=== PATIENT | male | born 1970 | race Caucasian/White ===

== ENCOUNTER 2021-06-02 09:12 | Inpatient (IN) | payer BC, SELFPAY ==
--- NOTE | ~2021-06-02 | US_ITS ---
US abdomen limited INDICATION: Right upper quadrant pain PROCEDURE: Realtime right upper abdominal ultrasound. COMPARISON: No prior studies for comparison. FINDINGS: The pancreas is normal without focal mass or pancreatic ductal dilation. Liver echotexture is normal without focal mass or intrahepatic biliary dilatation. There is normal directional flow i n the portal vein. There are multiple gallstones. Common bile duct measures 5 mm. No sonographic Urena's sign. IMPRESSION: 1: Cholelithiasis. Reviewed, dictated and finalized at location B. CONDITIONER IMPRESSION: 1: Cholelithiasis.
--- NOTE | ~2021-06-02 | CT_ITS ---
EXAMINATION: CT abdomen pelvis w con DATE: 06/06/2021 09:14 INDICATION: Persistent acute biliary pancreatitis TECHNIQUE: Computed tomography (CT) of the abdomen and pelvis was performed with 100 mL Omnipaque-350 intravenous contrast. Automated exposure control and iterative reconstruction technique were employe d. The dose-length product was 799.31 mGy-cm. COMPARISON: CT dated 06/04/2021 FINDINGS: Small left pleural effusion. Lesion enhancing consolidation at the medial aspect of the lingula and a t the lateral basilar aspect of the left lower lobe most consistent with compressive atelectasis. Add itional mild dependent atelectasis in the right lower lobe and mild discoid atelectasis in the right middle lobe. Heart size is normal. No pericardial effusion. Liver, gallbladder, spleen, bilateral adr enal glands and kidneys are normal. Persistent peripancreatic edema along with a few small nonloculat ed peripancreatic fluid collections within the surrounding retroperitoneal and mesenteric fat. Homoge neous pancreatic parenchymal enhancement with no pancreatic necrosis. Small amount of ascites scatter ed throughout the abdomen and pelvis. Mild scattered diverticulosis with descending and sigmoid colon predominance and without adjacent inflammatory change to suggest diverticular colitis. Small bowel a nd appendix are normal. Bladder is normal. No abscess or free intraperineal gas. No pathologically en larged abdominal or pelvic lymphadenopathy. Mild scattered degenerative skeletal changes in the spine and pelvis. IMPRESSION: 1. Persistent acute interstitial pancreatitis with few small acute peripancreatic fluid collections b ut no necrosis or abscess. 2. Interval increase in a still small amount of likely reactive ascites. 3. Mild diverticulosis. 4. New small left pleural effusion with atelectasis at the lung bases, left greater than right. Reviewed, dictated and finalized at location A. GN MANAGER IMPRESSION: 1. Persistent acute interstitial pancreatitis with few small acute peripancreat ic fluid collections but no necrosis or abscess. 2. Interval increase in a still small amount of likely reactive ascites. 3. Mild diverticulosis. 4. New small left pleural effusion with atelectasis at the lung bases, left gre ater than right.
--- NOTE | ~2021-06-02 | CT_ITS ---
EXAMINATION: CT abdomen pelvis w con DATE: 06/02/2021 11:49 INDICATION: Upper abdominal pain, vomiting and transaminitis TECHNIQUE: Computed tomography (CT) of the abdomen and pelvis was performed with 100 mL Omnipaque-350 intravenous contrast. Automated exposure control and iterative reconstruction technique were employe d. The dose-length product was 1145.11 mGy-cm. COMPARISON: Ultrasound dated 06/02/2021 FINDINGS: Scattered linear discoid atelectasis/scarring at the bilateral lower lung zones. Heart size is normal . No pericardial or pleural effusion. Liver is normal. No intra-axial hepatic biliary ductal dilation . Multiple subtle gallstones are seen in the dependent aspect of the gallbladder. Trace amount of per icholecystic fluid between the liver and gallbladder. No other carpal or wall thickening or perichole cystic inflammatory change to suggest acute cholecystitis. Pancreas and spleen are normal. Slight nod ular thickening of the limbs of the bilateral adrenal glands most likely representing multiple small adenomas versus adrenal hyperplasia. Bilateral kidneys are normal. There is opacification of the bila teral renal collecting systems and ureters which are of normal caliber with bilateral ureteral jets w ithin the normal bladder. There is mild colonic diverticulosis with a sigmoid predominance. There is no adjacent inflammatory change to suggest diverticulitis. Small bowel and appendix are normal. No f ree intraperitoneal gas or fluid. No pathologically enlarged abdominal or pelvic lymphadenopathy. IMPRESSION: 1. Cholelithiasis and trace amount of nonspecific fluid situated between the liver and gallbladder. T here is however dilation of the gallbladder or intra or extra hepatic bile ducts. No abnormal wall th ickening, pericholecystic inflammatory stranding or reported Urena's on a prior ultrasound to more s pecifically suggest acute cholecystitis. Reviewed, dictated and finalized at location A. E COMMERCE MARKETING ANALYST IMPRESSION: 1. Cholelithiasis and trace amount of nonspecific fluid situated between the li marysol and gallbladder. There is however dilation of the gallbladder or intra or e xtra hepatic bile ducts. No abnormal wall thickening, pericholecystic inflammat ory stranding or reported Urena's on a prior ultrasound to more specifically s uggest acute cholecystitis.
--- NOTE | ~2021-06-02 | XR_ITS ---
XR chest 2V 06/02/2021 10:56 Indication: Chest pain Procedure: 2 view chest Comparison: No prior studies for comparison. Findings: Heart size normal. No focal air space disease, pulmonary edema, pleural effusion or suspect ed pneumothorax. Left basilar atelectasis. No pleural effusion or pneumothorax. No acute osseous abno rmality. Impression: 1: Left basilar atelectasis. Reviewed, dictated and finalized at location B. LER HELPER Impression: 1: Left basilar atelectasis.
--- NOTE | ~2021-06-02 | CT_ITS ---
EXAMINATION: CT abdomen pelvis wo con DATE: 06/09/2021 09:16 INDICATION: Pancreatitis, hypogastric abdominal mass noted during laparoscopic cholecystectomy TECHNIQUE: Computed tomography (CT) of the abdomen and pelvis was performed without intravenous contr ast. The dose-length product (DLP) was 895.29 mGy-cm. Automated exposure control and iterative recons truction technique were employed. COMPARISON: 06/06/2021, 06/04/2021, 06/02/2021 FINDINGS: The examination is limited by the absence of intravenous contrast. There are small pleural effusions. There are increasing airspace opacities in the lingula and left lower lobe. The heart size is normal. Within the limitations of noncontrast examination, the liver, spleen, and adrenal glands are normal. There are changes of interval cholecystectomy. There is an approximately 8.2 x 5.1 cm flu id collection along the greater curvature of the stomach which is stable to slightly decreased in siz e since the comparison examination. There is a marked amount of peripancreatic fluid and edema anteri or to the pancreas. There is questionable hypoattenuation in the body of the pancreas with no associa alessandro internal gas. A small amount of inflammation and edema extends into the bilateral anterior parare nal spaces. The kidneys are unremarkable. No pathologically enlarged abdominal or pelvic lymph nodes are identified. There are no dilated loops of bowel. Tiny foci of gas in the right anterior abdominal wall and anterior abdominal wall musculature to the right of midline are consistent with changes fro m cholecystectomy. IMPRESSION: 1. Combination of peripancreatic and perigastric fluid and inflammatory change related to pancreatiti s likely accounting for the intraoperative abnormality described. 2. Possible hypoattenuation in the body of the pancreas with surrounding fluid, which would be consis tent with necrotizing pancreatitis with sterile acute necrotic collection. Sensitivity limited by the absence of intravenous contrast. 3. Changes of interval cholecystectomy. Reviewed, dictated and finalized at location A. INATION MACHINE TENDER IMPRESSION: 1. Combination of peripancreatic and perigastric fluid and inflammatory change related to pancreatitis likely accounting for the intraoperative abnormality de scribed. 2. Possible hypoattenuation in the body of the pancreas with surrounding fluid, which would be consistent with necrotizing pancreatitis with sterile acute nec rotic collection. Sensitivity limited by the absence of intravenous contrast. 3. Changes of interval cholecystectomy.
--- NOTE | ~2021-06-02 | CT_ITS ---
EXAMINATION: CT abdomen wo con EXAM DATE: 06/04/2021 11:01 INDICATION: Abdominal pain. TECHNIQUE: Spiral CT of the abdomen was performed without contrast. Axial, coronal and sagittal malinda ges of the abdomen and pelvis were reviewed. The dose-length product (DLP) for this examination was 421.78 mGy-cm. The exposure was tailored according to patient size (auto mA exposure control), and i terative reconstruction (ASIR) was used as additional dose reduction technique. Comparison is made to prior examination from 06/02/2021. FINDINGS: There is interval development of liver, spleen, adrenal glands are unremarkable. Moderate a mount of peripancreatic fat stranding, appearance consistent with acute uncomplicated interstitial pa ncreatitis. There is edema extending into the mesentery and omentum. Probably poorly calcified bear lithiasis. Gallbladder otherwise unremarkable. Trace perisplenic fluid. There is no nephrolithiasis or hydronephrosis. There is no retroperitoneal lymphadenopathy. There are no findings to suggest appendicitis. There is mild scattered colonic diverticulosis. There is no adjacent inflammatory change to suggest diverticulitis. Possible gastric wall emphysema at th e cardia, could be from yesterday's ERCP. There is expected amount of colonic stool. No free intra peritoneal gas. The heart is normal in size. There are no pericardial or pleural effusions. Devel opment of linear subsegmental atelectasis bilaterally. There are no osteoblastic or osteolytic lesio ns identified. IMPRESSION: 1. Development of moderate peripancreatic, mesenteric inflammation, acute pancreatitis. 2. Possible small amount of gastric cardial wall emphysema, could be from recent ERCP. No free intra peritoneal gas. 3. Mild scattered colonic diverticulosis. Reviewed, dictated and finalized at location B. ER REGULATOR IMPRESSION: 1. Development of moderate peripancreatic, mesenteric inflammation, acute panc reatitis. 2. Possible small amount of gastric cardial wall emphysema, could be from rece nt ERCP. No free intraperitoneal gas. 3. Mild scattered colonic diverticulosis.
--- NOTE | ~2021-06-02 | CT_ITS ---
EXAMINATION: CT abdomen pelvis w con EXAM DATE: 06/14/2021 12:17 INDICATION: Pancreatitis, pseudocyst? further evaluation . TECHNIQUE: Spiral CT of the abdomen and pelvis was performed following intravenous injection of 100 m L Omnipaque 350. Axial, coronal and sagittal images of the abdomen and pelvis were reviewed. The do se-length product (DLP) for this examination was 552.36 mGy-cm. The exposure was tailored according to patient size (auto mA exposure control), and iterative reconstruction (ASIR) was used as additiona l dose reduction technique. Comparison is made to prior examination from 06/09/2021. FINDINGS: Previous exam had small to moderate left pleural effusion and multi segmental left lower lo be atelectasis. These findings have significantly improved with some residual subsegmental left lower lobe atelectasis and only trace pleural effusion. Borderline cardiomegaly is unchanged. Bilateral adrenal gland nodularity probably small adenomas or hyperplasia. Again there is extensive p eripancreatic, mesenteric fat stranding, with development of fluid collection along the inferior sabra in of the stomach measuring about 2.4 x 4.4 x 10 cm, consistent with pseudocyst. Margins of the pancr eas are ill-defined, possible peripheral necrosis without focal regions of central pancreatic necrosi s. There are cholecystectomy clips and some fluid in the gallbladder fossa could be postoperative or kathy ctive. Portal and splenic veins are patent. Kidneys enhance symmetrically. There is no hydronephro sis. The prostate is unremarkable. The bladder is unremarkable. There is no retroperitoneal or pe lvic lymphadenopathy. There are no findings to suggest appendicitis. The stomach and small bowel are unremarkable. Normal ization of quantity of colonic stool. There is mild scattered colonic diverticulosis. There is no ad jacent inflammatory change to suggest diverticulitis. No free intraperitoneal gas. There are no osteoblastic or osteolytic lesions identified. IMPRESSION: 1. Severe acute pancreatitis with development of pseudocysts along margin of stomach. 2. There is been improvement in left pleural effusion, basilar atelectasis. 3. Colonic diverticulosis. Reviewed, dictated and finalized at location B. SHOE WORKER IMPRESSION: 1. Severe acute pancreatitis with development of pseudocysts along margin of s tomach. 2. There is been improvement in left pleural effusion, basilar atelectasis. 3. Colonic diverticulosis.
--- NOTE | ~2021-06-02 | XR_ITS ---
EXAMINATION: XR ERCP DATE: 06/03/2021 11:20 INDICATION: Abnormal liver function tests. TECHNIQUE: 2 spot fluoroscopic images of the right upper quadrant were obtained during endoscopic ret rograde cholangiopancreatography (ERCP). Fluoroscopy exposure time was 104 seconds. COMPARISON: CT abdomen and pelvis 06/02/2021 FINDINGS: There is contrast opacification of the common duct, which is normal in caliber. IMPRESSION: 1. Normal caliber common duct. Please refer to the ERCP procedure note for additional details. Reviewed, dictated and finalized at location A. LE ATTACHING MACHINE OPERATOR IMPRESSION: 1. Normal caliber common duct. Please refer to the ERCP procedure note for indra tional details.
[2021-06-02 09:14] VITALS: BP 158/89; PULSE 78; RESP 20; O2SAT 97
[2021-06-02 10:05] VITALS: BP 158/89; PULSE 78; RESP 20; TEMP 36.8; O2SAT 97
[2021-06-02 10:22] LABS: Basophils Percent Auto 0.2 % (0.2-1.2); Eosinophils Percent Auto 0.4 % (0-4.4); Hematocrit 47.1 % (42.0-52.0); Hemoglobin 16.1 g/dL (14.0-18.0); Immature Granulocyte Absolute 0.01 K/mm3 (0.00-0.031); Immature Granulocyte Percent A 0.2 % (0-0.5); Lymphocytes Absolute Auto 0.72 K/mm3 (0.9-3.2); Lymphocytes Percent Auto 15.6 % (18.3-44.2); Mean Corpuscular HGB Conc 34.2 g/dl (32-36); Mean Corpuscular Volume 90.8 fl (80-100); Monocytes Absolute Auto 0.3 K/mm3 (0.1-0.6); Monocytes Percent Auto 5.8 % (2.6-8.5); Neutrophils Absolute Auto 3.6 K/mm3 (1.3-6.7); Neutrophils Percent Auto 77.8 % (45.5-73.1); Platelet Count Result 235 k/mm3 (150-375); Red Blood Count 5.19 M/mm3 (4.6-6.20); Red Cell Distribution Width 13.1 % (11.5-14.5); White Blood Count 4.6 K/mm3 (4.5-10.0)
--- NOTE | 2021-06-02 10:24 | ECG_ITS ---
Measurements Intervals Thomson Rate: 58 P: 22 NM: 143 QRS: 14 QRSD: 91 T: 19 QT: 396 QTc: 389 Interpretive Statements SINUS BRADYCARDIA WITH MARKED SINUS ARRHYTHMIA BASELINE WANDER- I, II, AVR, AVL, AVF, V1, V3-V6 BORDERLINE ECG Electronically Signed On 06-02-2021 13:41:47 C4 PLANNER by Jc Weaver D.O.
--- NOTE | 2021-06-02 10:26 | ED.ABDPAIN ---
HPI - Abdominal Pain General Chief Complaint: Abdominal Pain <MEDARDO Sepulveda Last Filed: 06/02/21 15:06> Stated Complaint: Abd Pain, Nausea <MEDARDO Sepulveda Last Filed: 06/02/21 15:06> Time Seen by Provider: 06/02/21 10:06 <MEDARDO Sepulveda Last Filed: 06/02/21 15:06> Source: patient <MEDARDO Sepulveda Last Filed: 06/02/21 15:06> Mode of arrival: ambulatory <MEDARDO Sepulveda Last Filed: 06/02/21 15:06> Limitations: no limitations <MEDARDO Sepulveda Last Filed: 06/02/21 15:06> History of Present Illness HPI narrative: This is a 50-year-old male that presents to the emergency department for upper abdominal pain present since last night. Reports a dull/burning upper abdominal pain. Reports earlier it was radiating into his chest. Does report history of GERD. Reports before it started he had had a cheeseburger. Pain is associated with nausea and vomiting. Denies fever, shortness of breath, dysuria, hematuria, diarrhea, or hematochezia. <MEDARDO Sepulveda Last Filed: 06/02/21 15:06> Related Data Home Medications: Home Medications Medication Instructions Recorded Confirmed escitalopram oxalate mg 06/02/21 omeprazole 06/02/21 <MEDARDO Sepulveda Last Filed: 06/02/21 15:06> Allergies/Adverse Reactions: Allergies Allergy/AdvReac Type Severity Reaction Status Date / Time No Known Allergies Allergy Verified 06/02/21 10:07 <MEDARDO Sepulveda Last Filed: 06/02/21 15:06> Review of Systems Review of Systems: CONSTITUTIONAL: Denies fever CARDIOVASCULAR: Reports chest pain. Denies edema. RESPIRATORY: Denies dyspnea. GASTROINTESTINAL: Reports abdominal pain, nausea, vomiting. Denies diarrhea. GENITOURINARY: Denies dysuria or hematuria. <MEDARDO Sepulveda Last Filed: 06/02/21 15:06> All systems reviewed & are unremarkable except as noted in HPI and below <Jessica Chavarria PA-C - Last Filed: 06/02/21 15:06> [facility] Past Medical History Medical History: Medical History Depression Gastroesophageal reflux disease <Jessica Chavarria PA-C - Last Filed: 06/02/21 15:06> Social History Social History: Social History Social History: Surrogate decision maker: Ellie Chapni, spouse. Code status: Full code. Smoking status: Current every day smoker Substance use: never Additional living arrangements comments: The patient lives in [place] with his family. Additional occupation/education comments: Works for the [employer]. <Jessica Chavarria PA-C - Last Filed: 06/02/21 15:06> Exam Narrative: GENERAL: Well-appearing, well-nourished, and in no acute distress. HEAD: Normocephalic, atraumatic. EYES: EOMI. CHEST: Clear to auscultation. No respiratory distress. No wheezes rales or rhonchi HEART: Regular rate and rhythm. No murmur heard. Normal peripheral pulses. ABDOMEN: Soft, nondistended, normal active bowel sounds. Tender to palpation in epigastrium and right upper quadrant. No CVA tenderness EXTREMITIES: Normal range of motion. No edema. SKIN: Warm, dry, no rash. NEURO: No focal deficits. Alert and oriented x3. PSYCH: Normal mood and affect <Jessica Chavarria PA-C - Last Filed: 06/02/21 15:06> Course MED SURG RN/PA Physician Supervision I evaluated the patient for abdominal pain in conjunction with the physician licensed occupational therapy assistant. At this point, patient's pain is controlled. Vital signs are stable. Plan to be admitted secondary to symptomatic cholelithiasis with abnormal transaminases. For this patient encounter, I reviewed the MED SURG RN or PA documentation, treatment plan, and medical decision making; and I had hycn-rh-dums time with this patient. <Sasha Saravia MD - Last Filed: 06/02/21 15:35> Consultations Consultation #1: Spoke with Dr. Espinoza who
[2021-06-02 10:31] LABS: Add Urine Microscopic? YES; Amorphous Sediment Urine Few; Appearance Urine Cloudy (Clear); Bacteria Urine Trace /hpf; Bilirubin Urine Negative (Negative); Blood Urine Negative (Negative); Color Urine Amber (Yellow); Glucose Urine UA Negative (Negative); Ketones Urine Negative (Negative); Leukocyte Esterase Ur Negative LEU/UL (Negative); Mucus Urine Rare /lpf; Nitrate Urine Negative (Negative); Protein Urine 2+ mg/dL (Negative); RBC Urine 0-2 /hpf (0-2); Specific Grav Ur 1.021 (1.001-1.035)
[2021-06-02] MEDS: MORPHINE SULFATE (*CRX) 4 MG/ML INJ IV PUSH (10:32)
[2021-06-02] MEDS: ONDANSETRON INJ 4 MG/2 ML VIAL IV PUSH (10:32)
[2021-06-02] MEDS: PANTOPRAZOLE SODIUM IV 40 MG VIAL IV PUSH (10:32)
[2021-06-02 10:38] LABS: Alkaline Phosphatase 127 U/L (38-126); Anion Gap 7 mmol/L (8-16); Bilirubin,Total 1.7 mg/dL (0.2-1.3); Blood Urea Nitrogen 12 mg/dL (9-20); Calcium 9.9 mg/dL (8.4-10.2); Carbon Dioxide 35 mmol/L (22-30); Chloride 96 mmol/L (98-107); Estimated CRCL calculation 78 ml/min; Estimated Glomerular Filt Rate > 60; Glucose 147 mg/dL (65-110); Lipase 255 U/L (23-300); Potassium 4.1 mmol/L (3.4-5.0); Sodium 138 mmol/L (137-145)
[2021-06-02 11:03] LABS: Alanine Aminotransferase 1462 U/L (4-50)
[2021-06-02 11:14] LABS: Aspartate Amino Transferase 1668 U/L (17-59)
[2021-06-02] MEDS: SODIUM CHLORIDE 0.9% IV 1,000 ML 999 ML IV CONT (11:26)
[2021-06-02 13:34] LABS: Acetaminophen < 10 ug/mL (10-30)
--- NOTE | 2021-06-02 14:10 | WPDGICN ---
Assessment and Plan Assessment and plan (1) Cholelithiasis: Qualifiers: Biliary obstruction: without biliary obstruction Cholecystitis presence: without cholecystitis Cholelithiasis location: gallbladder Qualified Code(s): K80.20 - Calculus of gallbladder without cholecystitis without obstruction Code(s): K80.20 - Calculus of gallbladder without cholecystitis without obstruction Status: Acute Assessment and Plan: he is clearly having episodes of biliary colic. The elevated enzymes suggest choledocholithiasis. Although he does not seem to have acute cholecystitis on ultrasound, he definitely has cholelithiasis. Surgery has been consulted. I discussed with him ERCP. I told him min the procedure involved sedation. I told that there is a risk of bleeding or perforation less than 1% that also risk of pancreatitis. Tentatively I will schedule this to be done tomorrow. I will await surgical consultation. We may be will to give him a clear liquid diet today. (2) Abdominal pain: Code(s): R10.9 - Unspecified abdominal pain Status: Acute Assessment and Plan: due to cholelithiasis and/or choledocholithiasis. The ongoing tenderness suggest possible pancreatitis but his lipase is normal (3) Transaminitis: Code(s): R74.01 - Elevation of levels of liver transaminase levels Status: Acute Assessment and Plan: this in the somewhat elevated bilirubin suggest choledocholithiasis. I told him that we will likely schedule him for ERCP to be done tomorrow. I do not know that MRCP is necessary because the abnormal enzymes warrant clearing the bile duct of any sludge that may be present. I told that he will also need to have a cholecystectomy. GI Consult Note Consult date/time: 06/02/21 14:10 HPI: Leodan Chapin is a 50 year old male who developed upper abdominal and lower chest pain yesterday accompanied by nausea vomiting. This pain radiates to the right upper quadrant and also bit to the left upper quadrant. He has had several episodes like this over the last 2 years. Had 1 in October and December and another summer month last year. Those would usually last about 45 minutes in the usually occurred late in the evening. This year he had 1 episode in August but otherwise had none until this 1. None have been this severe. He has no history of liver disease jaundice hepatitis or prior diagnosis of biliary problems or pancreatitis. He does take omeprazole because his primary care physician thought that these episodes may have been due to acid reflux. He denies dysphagia denies weight loss. He has had no colon problems or change in bowel habits. He was found to have an elevated ALT of 1462, alk phosphatase 127, bilirubin 1.7. Bilirubin is normal. Ultrasound does show cholelithiasis but no definite choledocholithiasis Review of Systems Review of Systems: All systems reviewed & are unremarkable except as noted in HPI and below PMFSH Past Medical History Medical History Depression Gastroesophageal reflux disease Social History Social History Social History: Surrogate decision maker: Ellie Chapin, spouse. Code status: Full code. Smoking status: Current every day smoker Substance use: never Additional living arrangements comments: The patient lives in [place] with his family. Additional occupation/education comments: Works for the [employer]. Meds Home Medications and Allergies Home Medications Medication Instructions Recorded Confirmed Type escitalopram oxalate mg 06/02/21 History omeprazole 06/02/21 History Allergies Allergy/AdvReac Type Severity Reaction Status Date / Time No Known Allergies Allergy Verified 06/02/21 10:07 Vital Signs Vital Signs - 24 hr 06/02/21 09:14 06/02/21 10:05
[2021-06-02 14:11] LABS: Hepatitis B Surface Antigen Negative (Negative)
--- NOTE | 2021-06-02 14:15 | PM.IMHP ---
H&P: HPI History of Present Illness Date/Time: 06/02/21 14:15 Chief Complaint: Abdominal pain. Narrative: This is a 50-year-old male smoker with GERD who presented to the emergency department earlier today from home for evaluation of abdominal pain. About an hour after eating dinner to consist of a double cheeseburger and deng potato wedges he developed discomfort in the epigastric and right upper quadrant regions that is almost a burning and squeezing like sensation associated with pretty significant nausea and sweats. He has had similar episodes off and on over the last 2 years and they have been self-limiting, lasting between 30 to 45 minutes. Unfortunately his symptoms did not go way and he was up most of the night in pain. In the emergency department today he was found to have elevated LFTs (total bilirubin 1.7, AST 1668, ALT 1462, alkaline phosphatase 127) and he is being admitted in this setting. A CT of the abdomen and pelvis showed cholelithiasis and trace amount of fluid between the liver and gallbladder with cholelithiasis noted on ultrasound without evidence of gallbladder wall thickening. He is feeling better after receiving morphine and pantoprazole in the emergency department. He denies fever, vomiting, and diarrhea. No history of gallbladder disease, peptic ulcers, pancreatitis, or hepatitis. Review of Systems Review of Systems: Twelve systems were reviewed with pertinent positives and negatives as per HPI. No recent cold or flu symptoms. No sick contacts. He denies chest pain, pleuritic pain, and shortness of breath. Except as documented, all other systems were reviewed and are negative. [facility] Past Medical History Medical History Depression with anxiety Gastroesophageal reflux disease Insomnia Smoker Surgical History Surgical History (Updated 06/02/21 @ 20:19 by Ann Savage PA-C) History of arthroscopic surgery of elbow Bilateral Status post arthroscopy of hip Left Family History Family History (Updated 06/02/21 @ 20:19 by Ann Savage PA-C) Mother Hypothyroidism Father Esophageal cancer Social History Social History (Updated 06/02/21 @ 20:20 by Ann Savage PA-C) Social History: Surrogate decision maker: Ellie Chapin, spouse. Code status: Full code. Years smoked: 20 Smoking status: Current every day smoker Tobacco type: cigarettes and e-cigarettes/vaping Alcohol intake: current Drinks per week: 1 Substance use: current Substance use type: does not use Additional living arrangements comments: The patient lives in [place] with his family. Additional occupation/education comments: Works for the [email or web address]. Meds Home Medications and Allergies Home Medications Medication Instructions Recorded Confirmed Type escitalopram oxalate 10 mg PO HS 06/02/21 06/02/21 History omeprazole 20 mg PO HS 06/02/21 06/02/21 History zolpidem 10 mg PO HS 06/02/21 06/02/21 History Allergies Allergy/AdvReac Type Severity Reaction Status Date / Time No Known Allergies Allergy Verified 06/02/21 18:15 Vital Signs Vital Signs - 24 hr 06/02/21 09:14 06/02/21 10:05 Temperature 98.2 F Pulse Rate 78 78 Respiratory Rate 20 20 Blood Pressure 158/89 H 158/89 H Pulse Oximetry 97 97 Exam Narrative: General: Well-developed male supine in bed in no distress. Weight: 80.7 kg. BMI: 33.6. HEENT: PERRL, EOMI. Sclerae anicteric. Tacky mucous membranes. Neck: Supple. Respiratory: Lungs are clear to auscultation bilaterally. Cardiovascular: Regular rate and rhythm with S1-S2. No murmur, rub, or gallop. Gastrointestinal: Abdomen is soft and nondistended with positive bowel sounds. He is somewhat tender to deeper palpation in the right upper quadrant. No guarding or rebound tenderness. Skin: Warm and dry. No rash or lesions on limited exam. Extremities: No cyanosis, clubbing, or edema. Radial and pedal pulses intact. Neurologica
[2021-06-02 14:17] LABS: HAV RESULT Negative (Negative); Hepatitis B Core IgM Result Negative (Negative)
[2021-06-02 14:29] LABS: Hepatitis C Virus Antibody Negative (Negative)
[2021-06-02 16:03] VITALS: BP 120/78; PULSE 59; RESP 16; TEMP 36.7; O2SAT 97
--- NOTE | 2021-06-02 16:17 | PC.NURSE ---
Dr. Gasca at bedside to eval patient
--- NOTE | 2021-06-02 16:17 | PC.NURSE ---
Dr. Gasca in to see pt.
[2021-06-02 18:10] VITALS: BP 127/82; PULSE 71; RESP 14; TEMP 37; O2SAT 100
--- NOTE | 2021-06-02 18:10 | ADMGEN ---
This patient, Leodan Chapin, was admitted to 2 Medical Room 251-. Patient/family oriented to hospital policies and general routines including ID bracelet, bed and alarms, visiting hours, pain management, procedures, bathroom and other care routines, personal items, smoking policy, room service/diet, and visiting hours. Information on how to activate the Rapid Response Team has been discussed. Patient/Family are encouraged to report perceived risks to care and to ask questions if they do not understand what they are told or what they should do.
[2021-06-02 18:13] VITALS: BMI 33.5
--- NOTE | 2021-06-02 18:31 | PM.CNGS ---
Assessment and Plan Assessment and plan (1) Cholelithiasis with chronic cholecystitis: Code(s): K80.10 - Calculus of gallbladder with chronic cholecystitis without obstruction Status: Chronic Assessment and Plan: It seems that the patient has had having multiple episodes of pain due to recurrent biliary colic and chronic cholecystitis over the last 2 years. His current episode of pain seems to be resolving. However he has significantly elevated liver enzymes as noted below. Agree with admission and GI consultation. (2) Transaminitis: Code(s): R74.01 - Elevation of levels of liver transaminase levels Status: Acute Assessment and Plan: Dr. Espinoza note reviewed and agree. Agree with proceeding with ERCP tomorrow as he has suggested. We can go ahead with cholecystectomy either at this admission or at a later time in the near future. (3) Gastroesophageal reflux disease: Code(s): K21.9 - Gastro-esophageal reflux disease without esophagitis Status: Chronic Assessment and Plan: Seems to be pretty well controlled on omeprazole daily. (4) Smoker: Code(s): F17.200 - Nicotine dependence, unspecified, uncomplicated Status: Chronic Assessment and Plan: Increases surgical risks. History of Present Illness Consult details Consult date: 06/02/21 Requesting physician: Jessica Chavarria PA-C Narrative: Patient is a 50-year-old man who ate cheese burgers with some cheesy tater tots for supper last night. This was about 6:00 p.m.. About 9:00 a.m. he started experiencing epigastric and right upper quadrant abdominal pain that radiated through to his back and was associated with nausea and vomiting. This pain persisted and he ventrally came to the emergency room today. He was seen about 5:30 p.m. and reports that his pain essentially resolved about 1:00 p.m. he is feeling much better with no nausea or vomiting and minimal discomfort. He has had multiple episodes similar to this over the last 2 years. Usually these go away in just a few hours but this 1 was more persistent. He has gastroesophageal reflux disease and takes omeprazole daily. He had been under the impression that his pain was due to reflux. Imaging in the emergency room showed numerous gallstones in the gallbladder by ultrasound. Neither ultrasound or CT showed definitive evidence of acute cholecystitis. His white blood cell count was between 4 and 5000. However his liver enzymes particularly AST and ALT were markedly elevated. Bilirubin was 1.7. Alk-phos was mildly elevated. He has a strong family history of gallbladder disease in both his mother and his father. He is seen now in consultation regarding his abdominal pain and gallstones. Review of Systems Review of Systems: All systems reviewed & are unremarkable except as noted in HPI and below Constitutional: Constitutional: Denies chills and Denies fever(s) Cardiovascular: Cardiovascular: Denies chest pain, Denies diaphoresis, Denies dyspnea and Denies paroxysmal nocturnal dyspnea Respiratory: Respiratory: Denies chest congestion, Denies cough and Denies dyspnea Integumentary/Breasts: Skin/Breast: Denies lesions and Denies rash PMFSH Past Medical History Medical History Depression Gastroesophageal reflux disease Smoker Family History Family History Other No pertinent past medical history Social History Social History Social History: Surrogate decision maker: Ellie Chapin, spouse. Code status: Full code. Years smoked: 2 Smoking status: Current every day smoker Alcohol intake: current Drinks per week: 1 Substance use: current Substance use type: does not use Additional living arrangements comments: The patient lives in [place] with his family. Additional occupation/education comments: Works for the [employer]
[2021-06-02] MEDS: CALCIUM CARBONATE (TUMS) 500 MG (200 MG ELEMENTAL) PO (19:59)
[2021-06-02 20:00] VITALS: PULSE 56; RESP 16; O2SAT 96
[2021-06-02] MEDS: ESCITALOPRAM OXALATE 10 MG TABLET PO (21:05)
[2021-06-02] MEDS: PANTOPRAZOLE 40 MG TABLET PO (21:05)
[2021-06-02] MEDS: ZOLPIDEM TARTRATE (*CRX) 5 MG TABLET 10 MG PO (21:05)
[2021-06-02 21:21] VITALS: BP 123/80; PULSE 56; RESP 16; TEMP 36.3; O2SAT 96
[2021-06-03] VITALS (10 sets, daily range): BP systolic 109–130; BP diastolic 56–81; PULSE 55–75; RESP 12–18; TEMP 35.8–36.9; O2SAT 92–98
[2021-06-03 06:18] LABS: Hematocrit 41.6 % (42.0-52.0); Hemoglobin 14.1 g/dL (14.0-18.0); Mean Corpuscular HGB Conc 33.9 g/dl (32-36); Mean Corpuscular Hemoglobin 31.3 pg (26-34); Mean Corpuscular Volume 92.2 fl (80-100); Mean Platelet Volume 10.1 fl (7.4-10.4); Platelet Count Result 172 k/mm3 (150-375); Red Blood Count 4.51 M/mm3 (4.6-6.20); Red Cell Distribution Width 13.3 % (11.5-14.5)
[2021-06-03 06:41] LABS: Albumin Level 4.1 g/dL (3.5-5.1); Alkaline Phosphatase 124 U/L (38-126); Anion Gap 6 mmol/L (8-16); Aspartate Amino Transferase 661 U/L (17-59); Bilirubin Indirect 0.7 mg/dL (0-1.1); Bilirubin,Total 1.7 mg/dL (0.2-1.3); Blood Urea Nitrogen 8 mg/dL (9-20); Calcium 8.9 mg/dL (8.4-10.2); Carbon Dioxide 27 mmol/L (22-30); Chloride 101 mmol/L (98-107); Estimated CRCL calculation 87 ml/min; Estimated Glomerular Filt Rate > 60; Glucose 113 mg/dL (65-110); Lipase 252 U/L (23-300); Potassium 3.7 mmol/L (3.4-5.0); Sodium 134 mmol/L (137-145)
[2021-06-03 07:56] LABS: INR 1.1; Prothrombin Time 13.7 Seconds (11.1-14.7)
--- NOTE | 2021-06-03 09:40 | PM.PNGS ---
Progress Note: A&P Assessment and Plan (1) Cholelithiasis with chronic cholecystitis: Code(s): K80.10 - Calculus of gallbladder with chronic cholecystitis without obstruction Status: Chronic Assessment and Plan: Abdominal pain resolved. Plan for ERCP today. Patient would like to proceed with a cholecystectomy during this admission. Will try to plan for this in the next few days depending on the results of the ERCP. (2) Transaminitis: Code(s): R74.01 - Elevation of levels of liver transaminase levels Status: Acute Assessment and Plan: Total bilirubin still 1.7 today. AST and alk phos trending down, ALT pending this morning. GI planning to proceed with ERCP today. (3) Smoker: Code(s): F17.200 - Nicotine dependence, unspecified, uncomplicated Status: Chronic Additional Plan I have discussed the patient's case and plan of care with Dr. Gasca. Subjective Subjective Date/Time Seen: 06/03/21 08:40 Patient reports: no new complaints, feels better, pain is less and afebrile Interval history: This is a 50-year-old male who presented to the ER with the abdominal pain and was found to have transaminitis with cholelithiasis. Chart reviewed. He is scheduled for an ERCP today. The patient is now seen and examined this morning. He reports his abdominal pain has resolved, but he is still slightly tender in the upper abdomen. Denies any nausea or vomiting overnight. No other complaints at this time. Review of Systems Review of Systems: All systems reviewed & are unremarkable except as noted in HPI and below Exam Const: General: comfortable, no acute distress, alert and awake Orientation/consciousness: patient oriented x3 Resp: Effort & Inspection: normal respiratory effort Auscultation: clear to auscultation bilaterally Cardio: Rate: regular rate Rhythm: regular rhythm GI: Inspection: non-distended GI Palp: Yes Soft to palpation, Yes Tenderness to palpation present (GI) (epigastric and RUQ), No Guarding due to palpation present (GI), Yes No hepatosplenomegaly present, No Hernia present, No Palpable mass present and No Rebound tenderness present Auscultation: normal bowel sounds Rectal Exam: deferred Skin: General skin exam: normal color Neuro: General: moves all extremities and no focal motor deficits Extrem: General: no clubbing, cyanosis or edema and no calf tenderness Psych: Mental Status: mental status grossly normal Insight: Good insight present (Psych) Judgement: Good judgement present (Psych) Objective Data Vital Signs Vital Signs: Vital Signs - 24 hr 06/02/21 10:05 06/02/21 16:03 06/02/21 18:10 Temperature 98.2 F 98.1 F 98.6 F Pulse Rate 78 59 L 71 Respiratory Rate 20 16 14 Blood Pressure 158/89 H 120/78 127/82 Pulse Oximetry 97 97 100 06/02/21 20:00 06/02/21 21:21 06/03/21 05:44 Temperature 97.4 F L 96.4 F L Pulse Rate 56 L 56 L 58 L Respiratory Rate 16 16 14 Blood Pressure 123/80 109/56 L Pulse Oximetry 96 96 96 Intake/Output Intake/Output: Intake & Output 05/31/21 06/01/21 06/02/21 06/03/21 23:59 23:59 23:59 23:59 Intake Total 1240 Output Total 1000 Balance 1240 -1000 Meds/Results Medications: Active Medications Generic Name Dose Route Start Last Admin Trade Name Freq PRN Reason Stop Dose Admin Calcium Carbonate 200 mg 06/02/21 19:40 06/02/21 19:59 Calcium Carbonate (Tums) 500 Mg (200 Mg Elemental) PO 200 mg Q6H PRN Administration Indigestion Escitalopram Oxalate 10 mg 06/02/21 21:00 06/02/21 21:05 Escitalopram Oxalate 10 Mg Tablet PO 10 mg HS DRAKE Administration Lactated Ringer's 1,000 mls @ 150 mls/hr 06/03/21 09:40 Lr - Lactated Ringers Iv IV CONT .Q6H40M DRAKE Pantoprazole Sodium 40 mg 06/02/21 21:00 06/02/21 21:05 Pantoprazole 40 Mg Tablet PO 40 mg HS DRAKE Administration Zolpidem Tartrate 10 mg 06/02/21 21:00 06/02/21 21:05 Zolpidem Tartrate (*Crx) 5 Mg Tablet
[2021-06-03 09:41] LABS: Hepatitis B Surface Antigen Negative (Negative)
[2021-06-03] MEDS: LACTATED RINGERS 1,000 ML 150 ML IV CONT (09:41)
[2021-06-03 09:47] LABS: HAV RESULT Negative (Negative); Hepatitis B Core IgM Result Negative (Negative)
[2021-06-03 09:58] LABS: Hepatitis C Virus Antibody Negative (Negative)
--- NOTE | 2021-06-03 10:04 | PM.IMPN ---
Progress Note: A&P Assessment and Plan (1) Abdominal pain: Code(s): R10.9 - Unspecified abdominal pain Status: Acute Assessment and Plan: Imaging shows cholelithiasis but no evidence of acute cholecystitis No ductal dilatation noted on CT LFTs elevated S/p ERCP today per Dr. Espinoza Analgesics and antiemetics available as needed GS following, may need bear (2) Transaminitis: Code(s): R74.01 - Elevation of levels of liver transaminase levels Status: Acute Assessment and Plan: Concerning for choledocholithiasis or sludge in the bile ducts though no evidence of such on imaging. ERCP tomorrow as above. (3) Cholelithiasis: Qualifiers: Biliary obstruction: without biliary obstruction Cholecystitis presence: without cholecystitis Cholelithiasis location: gallbladder Qualified Code(s): K80.20 - Calculus of gallbladder without cholecystitis without obstruction Code(s): K80.20 - Calculus of gallbladder without cholecystitis without obstruction Status: Acute Assessment and Plan: Likely will need cholecystectomy General surgery following (4) Depression with anxiety: Code(s): F41.8 - Other specified anxiety disorders Status: Acute Assessment and Plan: Stable Continue citalopram (5) Gastroesophageal reflux disease: Code(s): K21.9 - Gastro-esophageal reflux disease without esophagitis Status: Chronic Assessment and Plan: Continue omeprazole (6) Smoker: Code(s): F17.200 - Nicotine dependence, unspecified, uncomplicated Status: Chronic Assessment and Plan: Smoking cessation is encouraged Declined the need for nicotine patch (7) Insomnia: Code(s): G47.00 - Insomnia, unspecified Status: Acute Assessment and Plan: Continue Ambien at bedtime Subjective Date/time seen: 06/03/21 13:04 Review of Systems Review of Systems: All systems reviewed & are unremarkable except as noted in HPI and below Exam Const: General: no acute distress, alert and awake Orientation/consciousness: patient oriented x3 HENMT: Head: normocephalic and atraumatic Ears: hearing grossly normal bilaterally and external ears normal Face and sinus: face symmetric Mouth: Yes Normal oral and palatal mucosa present Eyes: EOM: EOMs intact bilaterally Neck: Neck: full ROM, trachea midline and no JVD Resp: Effort & Inspection: normal respiratory effort Auscultation: clear to auscultation bilaterally Cardio: Jugular venous distension: no JVD Rate: regular rate Rhythm: regular rhythm Heart sounds: S1 normal heart sound present and S2 normal heart sound present GI: GI Palp: Yes Soft to palpation and Yes Tenderness to palpation present (GI) Auscultation: normal bowel sounds : General: Yes no CVA tenderness Skin: General skin exam: normal color Rashes: no rashes Neuro: General: patient oriented x3 and no focal motor deficits Speech: normal speech Extrem: General: full ROM and no clubbing, cyanosis or edema Psych: Appearance: grossly normal Affect: normal affect Judgement: Good judgement present (Psych) Objective Data Vital Signs Vital Signs: Vital Signs - 24 hr 06/02/21 10:05 06/02/21 16:03 06/02/21 18:10 Temperature 36.8 C 36.7 C 37.0 C Pulse Rate 78 59 L 71 Respiratory Rate 20 16 14 Blood Pressure 158/89 H 120/78 127/82 Pulse Oximetry 97 97 100 06/02/21 20:00 06/02/21 21:21 06/03/21 05:44 Temperature 36.3 C L 35.8 C L Pulse Rate 56 L 56 L 58 L Respiratory Rate 16 16 14 Blood Pressure 123/80 109/56 L Pulse Oximetry 96 96 96 06/03/21 09:39 Temperature 36.3 C L Pulse Rate 55 L Respiratory Rate 16 Blood Pressure 112/73 Pulse Oximetry 98 Intake/Output Intake/Output: Intake & Output 05/31/21 06/01/21 06/02/21 06/03/21 23:59 23:59 23:59 23:59 Intake Total 1240 Output Total 1000 Balance 1240 -1000 Meds/Results Medications: Active Medications Gener
--- NOTE | 2021-06-03 10:32 | WPDANESEPPF ---
Anes - Initial Pre Proc Eval Procedure: Operation Date: 06/03/21 10:45 Proposed Procedures p Endoscopic Retro Cholangiopancreatogram - Bill Espinoza MD Date/Time: 06/03/21 10:32 Surgeon: Bennie Louie MD Pre Op Diagnosis: cholelithiasis,transminitis,espigastric pain Patient Data Age: 50 Gender: M Height: 1.63 m Weight: 86.7 kg Last Vital Signs Temp 97.4 F L 06/03/21 09:39 Pulse 55 L 06/03/21 09:39 Resp 16 06/03/21 09:39 BP 112/73 06/03/21 09:39 Pulse Ox 98 06/03/21 09:39 Allergies Allergy/AdvReac Type Severity Reaction Status Date / Time No Known Allergies Allergy Verified 06/03/21 09:37 Home Medications Medication Instructions Recorded Confirmed Type escitalopram oxalate 10 mg PO HS 06/02/21 06/03/21 History omeprazole 20 mg PO HS 06/02/21 06/03/21 History zolpidem 10 mg PO HS 06/02/21 06/03/21 History Laboratory Tests 06/02/21 06/02/21 06/02/21 10:14 10:14 13:17 WBC 4.6 K/mm3 K/mm3 (4.5-10.0) RBC 5.19 M/mm3 M/mm3 (4.6-6.20) Hgb 16.1 g/dL g/dL (14.0-18.0) Hct 47.1 % % (42.0-52.0) MCV 90.8 fl fl (80-100) MCH 31.0 pg pg (26-34) MCHC 34.2 g/dl g/dl (32-36) RDW 13.1 % % (11.5-14.5) Plt Count 235 k/mm3 k/mm3 (150-375) MPV 10.0 fl fl (7.4-10.4) Immature Gran % (Auto) 0.2 % % (0-0.5) Neut % (Auto) 77.8 % H % (45.5-73.1) Lymph % (Auto) 15.6 % L % (18.3-44.2) [place] % (Auto) 5.8 % % (2.6-8.5) Eos % (Auto) 0.4 % % (0-4.4) Baso % (Auto) 0.2 % % (0.2-1.2) Lymph # (Auto) 0.72 K/mm3 L K/mm3 (0.9-3.2) [place] # (Auto) 0.3 K/mm3 K/mm3 (0.1-0.6) Eos # (Auto) 0.0 K/mm3 K/mm3 (0-0.3) Baso # (Auto) 0.0 K/mm3 K/mm3 (0.0-0.1) Abs Immat Gran (auto) 0.01 K/mm3 K/mm3 (0.00-0.031) Absolute Neuts (auto) 3.6 K/mm3 K/mm3 (1.3-6.7) Absolute Nucleated RBC 0.0 K/mm3 K/mm3 (0.0-0.012) Nucleated RBC % 0.0 % % (0.0-0.2) PT INR Sodium 138 mmol/L mmol/L (137-145) Potassium 4.1 mmol/L mmol/L (3.4-5.0) Chloride 96 mmol/L L mmol/L (98-107) Carbon Dioxide 35 mmol/L H mmol/L (22-30) Anion Gap 7 mmol/L L mmol/L (8-16) BUN 12 mg/dL mg/dL (9-20) Creatinine 1.00 mg/dL mg/dL (0.7-1.3) Estim Creat Clear Calc 78 ml/min ml/min Estimated GFR > 60 (59 - ) Glucose 147 mg/dL H mg/dL (65-110) Calcium 9.9 mg/dL mg/dL (8.4-10.2) Magnesium Total Bilirubin 1.7 mg/dL H mg/dL (0.2-1.3) Direct Bilirubin Indirect Bilirubin AST 1668 U/L H U/L (17-59) ALT 1462 U/L H U/L (4-50) Alkaline Phosphatase 127 U/L H U/L (38-126) Total Protein 8.0 g/dL g/dL (6.3-8.2) Albumin 5.0 g/dL g/dL (3.5-5.1) Lipase 255 U/L U/L (23-300) Acetaminophen Hepatitis A IgM Ab Negative (Negative) Hep Bs Antigen Negative (Negative) Hep B Core IgM Ab Negative (Negative) Hepatitis C Ab Screen Negative (Negative) 06/02/21 06/03/21 06/03/21 13:17 05:42 05:42 WBC 4.0 K/mm3 L K/mm3 (4.5-10.0) RBC 4.51 M/mm3 L M/mm3 (4.6-6.20) Hgb 14.1 g/dL g/dL (14.0-18.0) Hct 41.6 % L % (42.0-52.0) MCV 92.2 fl fl (80-100) MCH 31.3 pg pg (26-34) MCHC 33.9 g/dl g/dl (32-36) RDW 13.3 % % (11.5-14.5) Plt Count 172 k/mm3 k/mm3 (150-375) MPV 10.1 fl fl (7.4-10.4) Immature Gran % (Auto) Neut % (Auto) Lymph % (Auto) [place] % (Auto) Eos % (Auto) Baso % (Auto) Lymph # (Auto)
[2021-06-03 10:46] LABS: Alanine Aminotransferase 1183 U/L (4-50)
[2021-06-03] MEDS: INDOMETHACIN 50 MG SUPP.RECT 100 MG RECTAL (10:52)
[2021-06-03] MEDS: ACETAMINOPHEN 500 MG TABLET PO (15:27)
[2021-06-03] MEDS: HYDROcodone/acetaminophen (*CRX) 5-325 MG TABLET 1 TAB PO ×2 (16:57→18:04)
[2021-06-03] MEDS: ONDANSETRON INJ 4 MG/2 ML VIAL IV PUSH (18:04)
[2021-06-03] MEDS: ZOLPIDEM TARTRATE (*CRX) 5 MG TABLET 10 MG PO (20:05)
[2021-06-03] MEDS: PANTOPRAZOLE 40 MG TABLET PO (20:05)
[2021-06-03] MEDS: ESCITALOPRAM OXALATE 10 MG TABLET PO (20:05)
[2021-06-03] MEDS: HYDROcodone/acetaminophen (*CRX) 5-325 MG TABLET 2 TAB PO (21:48)
[2021-06-03] MEDS: CALCIUM CARBONATE (TUMS) 500 MG (200 MG ELEMENTAL) PO (21:52)
[2021-06-04] MEDS: ONDANSETRON INJ 4 MG/2 ML VIAL IV PUSH ×2 (02:13→09:04)
[2021-06-04] MEDS: HYDROcodone/acetaminophen (*CRX) 5-325 MG TABLET 1 TAB PO (02:13)
[2021-06-04 02:53] VITALS: BP 133/83; PULSE 60; RESP 20; TEMP 36.1; O2SAT 97
[2021-06-04] MEDS: HYDROcodone/acetaminophen (*CRX) 5-325 MG TABLET 2 TAB PO ×2 (04:18→10:16)
[2021-06-04] MEDS: CALCIUM CARBONATE (TUMS) 500 MG (200 MG ELEMENTAL) PO (04:20)
[2021-06-04] MEDS: HYDROmorphone HCL INJ (*CRX) 1 MG/ML SYR IV PUSH (06:18)
[2021-06-04 11:13] LABS: Hematocrit 46.9 % (42.0-52.0); Hemoglobin 16.3 g/dL (14.0-18.0); Mean Corpuscular HGB Conc 34.8 g/dl (32-36); Mean Corpuscular Hemoglobin 31.2 pg (26-34); Mean Corpuscular Volume 89.8 fl (80-100); Mean Platelet Volume 9.6 fl (7.4-10.4); Platelet Count Result 233 k/mm3 (150-375); Red Blood Count 5.22 M/mm3 (4.6-6.20); White Blood Count 15.7 K/mm3 (4.5-10.0)
[2021-06-04 11:42] LABS: Albumin Level 4.5 g/dL (3.5-5.1); Alkaline Phosphatase 153 U/L (38-126); Anion Gap 12 mmol/L (8-16); Aspartate Amino Transferase 294 U/L (17-59); Bilirubin,Total 2.1 mg/dL (0.2-1.3); Blood Urea Nitrogen 11 mg/dL (9-20); Carbon Dioxide 19 mmol/L (22-30); Chloride 102 mmol/L (98-107); Estimated CRCL calculation 110 ml/min; Estimated Glomerular Filt Rate > 60; Glucose 114 mg/dL (65-110); Potassium 4.2 mmol/L (3.4-5.0); Sodium 133 mmol/L (137-145)
[2021-06-04] MEDS: SODIUM CHLORIDE 0.9% IV 1,000 ML 75 ML IV CONT (11:46)
[2021-06-04] MEDS: IBUPROFEN IV 800 MG/200 ML 800 MG/200 ML BAG 400 MG IVPB ×3 (11:48→23:29)
[2021-06-04] MEDS: MORPHINE SULFATE (*CRX) 4 MG/ML INJ IV PUSH ×6 (11:48→22:16)
[2021-06-04 12:18] LABS: Alanine Aminotransferase > 750 U/L (4-50)
--- NOTE | 2021-06-04 12:53 | PM.IMPN ---
Progress Note: A&P Assessment and Plan (1) Abdominal pain: Code(s): R10.9 - Unspecified abdominal pain Status: Acute Assessment and Plan: Pt is NPO with iv fluids Pt had stat ct abdomen today Ct abdomen today shows moderate peripancreatic, mesenteric inflammation, acute pancreatitis. Pt small amount of gastric cardial wall emphysema, could be from recent ERCP. No free intraperitoneal S/p ERCP yesterday Analgesics and antiemetics to continue Surgery and Gi rounding (2) Transaminitis: Code(s): R74.01 - Elevation of levels of liver transaminase levels Status: Acute Assessment and Plan: elevated continue to monitor (3) Cholelithiasis: Qualifiers: Biliary obstruction: without biliary obstruction Cholecystitis presence: without cholecystitis Cholelithiasis location: gallbladder Qualified Code(s): K80.20 - Calculus of gallbladder without cholecystitis without obstruction Code(s): K80.20 - Calculus of gallbladder without cholecystitis without obstruction Status: Acute Assessment and Plan: Likely will need cholecystectomy General surgery following lfts 294/750/153 improving (4) Depression with anxiety: Code(s): F41.8 - Other specified anxiety disorders Status: Acute Assessment and Plan: Stable Continue citalopram (5) Gastroesophageal reflux disease: Code(s): K21.9 - Gastro-esophageal reflux disease without esophagitis Status: Chronic Assessment and Plan: Continue omeprazole (6) Smoker: Code(s): F17.200 - Nicotine dependence, unspecified, uncomplicated Status: Chronic Assessment and Plan: Smoking cessation is encouraged Declined the need for nicotine patch (7) Insomnia: Code(s): G47.00 - Insomnia, unspecified Status: Acute Assessment and Plan: Continue Ambien at bedtime (8) Pancreatitis: Code(s): K85.90 - Acute pancreatitis without necrosis or infection, unspecified Status: Acute Assessment and Plan: Ct abdomen today shows moderate peripancreatic, mesenteric inflammation, acute pancreatitis. Pt small amount of gastric cardial wall emphysema, could be from recent ERCP. No free intraperitoneal. Keep npo with fluids Surgery and Gi rounding. Subjective Date/time seen: 06/04/21 12:53 Interval history: 50-year-old male smoker with GERD who presented to the emergency department earlier today from home for evaluation of abdominal pain. About an hour after eating dinner to consist of a double cheeseburger and deng potato wedges he developed discomfort in the epigastric and right upper quadrant regions that is almost a burning and squeezing like sensation associated with pretty significant nausea and sweats. He has had similar episodes off and on over the last 2 years and they have been self-limiting, lasting between 30 to 45 minutes. Unfortunately his symptoms did not go way and he was up most of the night in pain. In the emergency department today he was found to have elevated LFTs (total bilirubin 1.7, AST 1668, ALT 1462, alkaline phosphatase 127) and he is being admitted in this setting. A CT of the abdomen and pelvis showed cholelithiasis and trace amount of fluid between the liver and gallbladder with cholelithiasis noted on ultrasound without evidence of gallbladder wall thickening. Pt had ERCP on 06/03/2021howing biliary stone and choledocholithiasis Pt in severe abdominal pains today, stat CT abdomen ordered, pt kept npo with fluids awaiting surgery, noted pt will need cholecystectomy during this admission. ct abdomen today shows moderate peripancreatic, mesenteric inflammation, acute pancreatitis. Pt small amount of gastric cardial wall emphysema, could be from recent ERCP. No free intraperitoneal gas. Review of Systems Review of Systems: All systems reviewed & are unremarkable except as noted in HPI and below Exam Const: General: in di
[2021-06-04 13:14] LABS: Amylase 2021 U/L (30-110); Lipase 9707 U/L (23-300)
[2021-06-04] MEDS: ENOXAPARIN 40 MG/0.4 ML SYRINGE SUB-Q (13:32)
[2021-06-04 14:05] VITALS: BP 129/60; PULSE 70; RESP 20; TEMP 37.1; O2SAT 96
--- NOTE | 2021-06-04 14:44 | WPDGIPROGNO ---
Progress Note: A&P Assessment and Plan (1) Cholelithiasis with chronic cholecystitis: Code(s): K80.10 - Calculus of gallbladder with chronic cholecystitis without obstruction Status: Chronic Assessment and Plan: only sludge like particles were produced with the sphincterotomy yesterday. The plan is that he will have a cholecystectomy electively because it is not acutely inflamed. Dr. novak is following (2) Pancreatitis: Code(s): K85.90 - Acute pancreatitis without necrosis or infection, unspecified Status: Acute Assessment and Plan: although we suspected possible pancreatitis on admission, his lipase was normal. Very likely the ERCP is responsible at least in part for his pancreatitis though this is surprising in view of the fact that his common bile duct was easily and selectively cannulated without bothering the pancreatic duct. He has quite a bit of pain and unfortunately he was not given anything such as morphine during the night or real estate subagent until after his arrived at the hospital. (3) Transaminitis: Code(s): R74.01 - Elevation of levels of liver transaminase levels Status: Acute Assessment and Plan: Liver enzymes continue to improve. Bilirubin is still elevated at 2 Time Spent With Patient Time with patient: 15 - 25 minutes Subjective Date/time seen: 06/04/21 14:44 history evening he began to have abdominal pain. Was in the same location as his prior pain but a little more diffuse and became much more severe. He states that he was not offered anything stronger for his pain any was quite uncomfortable all night long. I placed him on a full liquid diet but apparently he did not take very much of that. His noted that IV fluids were not running this morning and she pointed that out and subsequently fluids have been restarted. A CT scan abdomen was done and shows that he does have pancreatitis. Amylase and lipase likewise are significantly elevated Exam Const: General: ill appearing GI: GI Palp: Yes abdominal tenderness ( general) and Yes Guarding due to palpation present (GI) Auscultation: normal bowel sounds Objective Data Vital Signs Vital Signs: Vital Signs - 24 hr 06/03/21 21:42 06/04/21 02:53 Temperature 36.9 C 36.1 C L Pulse Rate 55 L 60 Respiratory Rate 18 20 Blood Pressure 130/80 133/83 Pulse Oximetry 93 97 Intake/Output Intake/Output: Intake & Output 06/01/21 06/02/21 06/03/2103/21 23:59 23:59 23:59 23:59 Intake Total 1240 1410 390 Output Total 2403 900 Balance 3270 -784 -032 Meds/Results Medications: Active Medications Generic Name Dose Route Start Last Admin Trade Name Freq PRN Reason Stop Dose Admin Acetaminophen 500 mg 06/03/21 15:23 06/03/21 15:27 Acetaminophen 500 Mg Tablet PO 500 mg Q4H PRN Administration Mild Pain (1-3) or Fever Hydrocodone Bitart/Acetaminophen 2 tab 06/03/21 15:08 06/04/21 10:16 Hydrocodone/Acetaminophen (*Crx) 5-325 Mg Tablet PO 2 tab Q6H PRN Administration Pain Rated 7-10 Hydrocodone Bitart/Acetaminophen 1 tab 06/03/21 15:08 06/04/21 02:13 Hydrocodone/Acetaminophen (*Crx) 5-325 Mg Tablet PO 1 tab Q6H PRN Administration Pain Rated 4-6 Calcium Carbonate 200 mg 06/02/21 19:40 06/04/21 04:20 Calcium Carbonate (Tums) 500 Mg (200 Mg Elemental) PO 200 mg Q6H PRN Administration Indigestion Enoxaparin Sodium 40 mg 06/05/21 09:00 Enoxaparin 40 Mg/0.4 Ml Syringe SUB-Q DAILY DRAKE Escitalopram Oxalate 10 mg 06/02/21 21:00 06/03/21 20:05 Escitalopram Oxalate 10 Mg Tablet PO 10 mg HS DRAKE Administration Famotidine 20 mg 06/04/21 21:00 Famotidine 20 Mg/2 Ml Vial IV PUSH Q12HR DRAKE Hydromorphone HCl 1 mg 06/04/21 05:20 06/04/21 06:18 Hydromorphone Hcl Inj (*Crx) 1 Mg/Ml Syr IV PUSH 1 mg Q3H PRN Administration breakthrough pain Sodium Chloride 1,000 mls @ 75 mls/hr 06/04/21
[2021-06-04 19:54] VITALS: BP 145/88; PULSE 79; RESP 20; TEMP 36.4; O2SAT 96
[2021-06-04] MEDS: ESCITALOPRAM OXALATE 10 MG TABLET PO (20:11)
[2021-06-04] MEDS: FAMOTIDINE 20 MG/2 ML VIAL IV PUSH (20:12)
[2021-06-04] MEDS: PANTOPRAZOLE 40 MG TABLET PO (20:12)
[2021-06-04] MEDS: ZOLPIDEM TARTRATE (*CRX) 5 MG TABLET 10 MG PO (20:16)
[2021-06-04] MEDS: SODIUM CHLORIDE 0.9% IV 1,000 ML 100 ML IV CONT (23:32)
[2021-06-05] VITALS (7 sets, daily range): BP systolic 143–147; BP diastolic 73–89; PULSE 87–95; RESP 16–20; TEMP 37.4–38.1; O2SAT 94–98
[2021-06-05] MEDS: MORPHINE SULFATE (*CRX) 4 MG/ML INJ IV PUSH ×7 (01:18→17:47)
[2021-06-05] MEDS: IBUPROFEN IV 800 MG/200 ML 800 MG/200 ML BAG 400 MG IVPB ×2 (05:41→12:20)
[2021-06-05 07:08] LABS: Hematocrit 42.9 % (42.0-52.0); Mean Corpuscular Hemoglobin 31.1 pg (26-34); Mean Platelet Volume 10.1 fl (7.4-10.4); Platelet Count Result 199 k/mm3 (150-375); Red Blood Count 4.82 M/mm3 (4.6-6.20); Red Cell Distribution Width 13.1 % (11.5-14.5); White Blood Count 14.3 K/mm3 (4.5-10.0)
[2021-06-05 07:27] LABS: Anion Gap 9 mmol/L (8-16); Blood Urea Nitrogen 11 mg/dL (9-20); Calcium 8.4 mg/dL (8.4-10.2); Carbon Dioxide 24 mmol/L (22-30); Chloride 101 mmol/L (98-107); Estimated CRCL calculation 98 ml/min; Estimated Glomerular Filt Rate > 60; Glucose 92 mg/dL (65-110); Lipase 3728 U/L (23-300); Potassium 3.6 mmol/L (3.4-5.0); Sodium 134 mmol/L (137-145)
[2021-06-05] MEDS: ENOXAPARIN 40 MG/0.4 ML SYRINGE SUB-Q (08:09)
[2021-06-05] MEDS: FAMOTIDINE 20 MG/2 ML VIAL IV PUSH ×2 (08:09→21:15)
--- NOTE | 2021-06-05 08:52 | PM.IMPN ---
Progress Note: A&P Assessment and Plan (1) Abdominal pain: Code(s): R10.9 - Unspecified abdominal pain Status: Acute Assessment and Plan: S/p ERCP 06/03/2021 Pt is NPO with iv fluids since yesterday Pt had stat ct abdomen yesterday Ct abdomen today shows moderate peripancreatic, mesenteric inflammation, acute pancreatitis. Pt small amount of gastric cardial wall emphysema, could be from recent ERCP. No free intraperitoneal Analgesics and antiemetics to continue Surgery and Gi rounding Lipase coming down from 9000 to 3000 today LFTS improving slowly 294/750/153 (2) Transaminitis: Code(s): R74.01 - Elevation of levels of liver transaminase levels Status: Acute Assessment and Plan: LFTS improving slowly 294/750/153 (3) Cholelithiasis: Qualifiers: Biliary obstruction: without biliary obstruction Cholecystitis presence: without cholecystitis Cholelithiasis location: gallbladder Qualified Code(s): K80.20 - Calculus of gallbladder without cholecystitis without obstruction Code(s): K80.20 - Calculus of gallbladder without cholecystitis without obstruction Status: Acute Assessment and Plan: Likely will need cholecystectomy on when acute abdomen settles General surgery following LFTS improving slowly 294/750/153 (4) Depression with anxiety: Code(s): F41.8 - Other specified anxiety disorders Status: Acute Assessment and Plan: Stable Continue citalopram (5) Gastroesophageal reflux disease: Code(s): K21.9 - Gastro-esophageal reflux disease without esophagitis Status: Chronic Assessment and Plan: Continue omeprazole (6) Smoker: Code(s): F17.200 - Nicotine dependence, unspecified, uncomplicated Status: Chronic Assessment and Plan: Smoking cessation is encouraged Declined the need for nicotine patch (7) Insomnia: Code(s): G47.00 - Insomnia, unspecified Status: Acute Assessment and Plan: Continue Ambien at bedtime (8) Pancreatitis: Code(s): K85.90 - Acute pancreatitis without necrosis or infection, unspecified Status: Acute Assessment and Plan: Ct abdomen today shows moderate peripancreatic, mesenteric inflammation, acute pancreatitis. Pt small amount of gastric cardial wall emphysema, could be from recent ERCP. No free intraperitoneal. Keep npo with fluids Surgery and Gi rounding. continue to monitor lipase and CMP, continue analgesia and antiemetics Subjective Date/time seen: 06/05/21 08:52 Interval history: 50-year-old male smoker with GERD who presented to the emergency department earlier today from home for evaluation of abdominal pain. About an hour after eating dinner to consist of a double cheeseburger and deng potato wedges he developed discomfort in the epigastric and right upper quadrant regions that is almost a burning and squeezing like sensation associated with pretty significant nausea and sweats. He has had similar episodes off and on over the last 2 years and they have been self-limiting, lasting between 30 to 45 minutes. Unfortunately his symptoms did not go way and he was up most of the night in pain. In the emergency department today he was found to have elevated LFTs (total bilirubin 1.7, AST 1668, ALT 1462, alkaline phosphatase 127) and he is being admitted in this setting. A CT of the abdomen and pelvis showed cholelithiasis and trace amount of fluid between the liver and gallbladder with cholelithiasis noted on ultrasound without evidence of gallbladder wall thickening. Pt had ERCP on 06/03/2021howing biliary stone and choledocholithiasis Pt in severe abdominal pains today, stat CT abdomen ordered, pt kept npo with fluids awaiting surgery, noted pt will need cholecystectomy during this admission. ct abdomen today shows moderate peripancreatic, mesenteric inflammation, acute pancreatitis. Pt small amount of gastric cardial wall
[2021-06-05] MEDS: SODIUM CHLORIDE 0.9% IV 1,000 ML 100 ML IV CONT ×2 (10:54→21:16)
--- NOTE | 2021-06-05 11:02 | WPDGIPROGNO ---
Progress Note: A&P Assessment and Plan (1) Cholelithiasis with chronic cholecystitis: Code(s): K80.10 - Calculus of gallbladder with chronic cholecystitis without obstruction Status: Chronic Assessment and Plan: only sludge like particles were produced with the sphincterotomy yesterday. The plan is that he will have a cholecystectomy electively because it is not acutely inflamed. Dr. novak is following. the patient states that the plan is tentatively for him to have cholecystectomy on Monday (2) Pancreatitis: Code(s): K85.90 - Acute pancreatitis without necrosis or infection, unspecified Status: Acute Assessment and Plan: although we suspected possible pancreatitis on admission, his lipase was normal. Very likely the ERCP is responsible at least in part for his pancreatitis though this is surprising in view of the fact that his common bile duct was easily and selectively cannulated without bothering the pancreatic duct. He has quite a bit of pain and unfortunately he was not given anything such as morphine during the night or product safety expert until after his arrived at the hospital yesterday morning. He is still having significant pain requiring morphine. I will offer him clear liquids. (3) Transaminitis: Code(s): R74.01 - Elevation of levels of liver transaminase levels Status: Acute Assessment and Plan: Enzymes were coming down. I will recheck them tomorrow Subjective Date/time seen: 06/05/21 11:02 The patient is still having rather severe pain requiring morphine every 2 hours. He did sleep during the night and went about 5 hours between morphine administration. He states that he is not hungry. He still has hiccups and burps [place] [address] Amylase lipase though still elevated are coming down. I discussed his case with his nurse. She states that he has asked for morphine but is not due for it for about 15 more minutes. He states that it 'helps' with the pain but does not last quite 2 hours. Exam Const: General: uncomfortable Orientation/consciousness: patient oriented x3 Eyes: Sclera: sclerae normal GI: Inspection: distended GI Palp: Yes abdominal tenderness ( general) Objective Data Vital Signs Vital Signs: Vital Signs - 24 hr 06/04/21 14:05 06/04/21 19:54 06/05/21 03:11 Temperature 37.1 C 36.4 C 37.4 C Pulse Rate 70 79 93 Respiratory Rate 20 20 20 Blood Pressure 129/60 145/88 H 147/73 H Pulse Oximetry 96 96 94 06/05/21 10:52 Temperature Pulse Rate 95 Respiratory Rate Blood Pressure 145/89 H Pulse Oximetry 94 Intake/Output Intake/Output: Intake & Output 06/02/21 06/03/21 06/04/21 06/05/21 23:59 23:59 23:59 23:59 Intake Total 1240 1418 1790 1000 Output Total 2400 1600 300 Balance 1240 -982 190 700 Meds/Results Medications: Active Medications Generic Name Dose Route Start Last Admin Trade Name Freq PRN Reason Stop Dose Admin Acetaminophen 500 mg 06/03/21 15:23 06/03/21 15:27 Acetaminophen 500 Mg Tablet PO 500 mg Q4H PRN Administration Mild Pain (1-3) or Fever Hydrocodone Bitart/Acetaminophen 2 tab 06/03/21 15:08 06/04/21 10:16 Hydrocodone/Acetaminophen (*Crx) 5-325 Mg Tablet PO 2 tab Q6H PRN Administration Pain Rated 7-10 Hydrocodone Bitart/Acetaminophen 1 tab 06/03/21 15:08 06/04/21 02:13 Hydrocodone/Acetaminophen (*Crx) 5-325 Mg Tablet PO 1 tab Q6H PRN Administration Pain Rated 4-6 Calcium Carbonate 200 mg 06/02/21 19:40 06/04/21 04:20 Calcium Carbonate (Tums) 500 Mg (200 Mg Elemental) PO 200 mg Q6H PRN Administration Indigestion Enoxaparin Sodium 40 mg 06/05/21 09:00 06/05/21 08:09 Enoxaparin 40 Mg/0.4 Ml Syringe SUB-Q 40 mg DAILY DRAKE Administration Escitalopram Oxalate 10 mg 06/02/21 21:00 06/04/21 20:11 Escitalopram Oxalate 10 Mg Tablet PO 10 mg HS DRAKE Administration Famotidine 20 mg
--- NOTE | 2021-06-05 14:45 | PM.PNGS ---
Progress Note: A&P Assessment and Plan (1) Pancreatitis: Code(s): K85.90 - Acute pancreatitis without necrosis or infection, unspecified Status: Acute Assessment and Plan: improving but still pretty uncomfortable. Continue clear liquid diet. Recheck labs again tomorrow. Tentatively plan to proceed with laparoscopic cholecystectomy on Monday. Discussed with the patient and his . (2) Cholelithiasis with chronic cholecystitis: Code(s): K80.10 - Calculus of gallbladder with chronic cholecystitis without obstruction Status: Chronic Assessment and Plan: If pancreatitis has resolved, plan to proceed with laparoscopic cholecystectomy on Monday. (3) Smoker: Code(s): F17.200 - Nicotine dependence, unspecified, uncomplicated Status: Chronic Subjective Subjective Date/Time Seen: 06/05/21 14:45 Patient reports: still having pain ( Better than yesterday however), no bowel movement and afebrile Interval history: still having abdominal pain from acute pancreatitis but much less than before. Morphine nearly last the entire 2 hours before next dose. Very little appetite but trying some liquids. Review of Systems Review of Systems: All systems reviewed & are unremarkable except as noted in HPI and below Constitutional: Constitutional: Denies headache(s) Cardiovascular: Cardiovascular: Denies chest pain and Denies dyspnea Respiratory: Respiratory: Denies cough and Denies dyspnea Gastrointestinal: Gastrointestinal: Reports abdominal pain and Denies vomiting Exam Const: General: no acute distress, alert, awake, tired appearing and uncomfortable; No confusion Nutritional Appearance: well nourished Orientation/consciousness: patient oriented x3 and No confusion GI: Inspection: non-distended and scaphoid GI Palp: Yes Soft to palpation, Yes Tenderness to palpation present (GI) ( Epigastric area), No Guarding due to palpation present (GI) and No Rebound tenderness present Neuro: General: patient oriented x3, no focal motor deficits and No confusion Extrem: General: no calf tenderness and no edema Psych: Affect: normal affect Insight: Good insight present (Psych) Judgement: Good judgement present (Psych) Objective Data Vital Signs Vital Signs: Vital Signs - 24 hr 06/04/21 19:54 06/05/21 03:11 06/05/21 10:52 Temperature 36.4 C 37.4 C Pulse Rate 79 93 95 Respiratory Rate 20 20 Blood Pressure 145/88 H 147/73 H 145/89 H Pulse Oximetry 96 94 94 Intake/Output Intake/Output: Intake & Output 06/02/21 06/03/21 06/04/21 06/05/21 23:59 23:59 23:59 23:59 Intake Total 1240 1418 1790 1760 Output Total 2400 1600 300 Balance 1240 -319 648 2552 Meds/Results Medications: Active Medications Generic Name Dose Route Start Last Admin Trade Name Freq PRN Reason Stop Dose Admin Acetaminophen 500 mg 06/03/21 15:23 06/03/21 15:27 Acetaminophen 500 Mg Tablet PO 500 mg Q4H PRN Administration Mild Pain (1-3) or Fever Hydrocodone Bitart/Acetaminophen 2 tab 06/03/21 15:08 06/04/21 10:16 Hydrocodone/Acetaminophen (*Crx) 5-325 Mg Tablet PO 2 tab Q6H PRN Administration Pain Rated 7-10 Hydrocodone Bitart/Acetaminophen 1 tab 06/03/21 15:08 06/04/21 02:13 Hydrocodone/Acetaminophen (*Crx) 5-325 Mg Tablet PO 1 tab Q6H PRN Administration Pain Rated 4-6 Calcium Carbonate 200 mg 06/02/21 19:40 06/04/21 04:20 Calcium Carbonate (Tums) 500 Mg (200 Mg Elemental) PO 200 mg Q6H PRN Administration Indigestion Enoxaparin Sodium 40 mg 06/05/21 09:00 06/05/21 08:09 Enoxaparin 40 Mg/0.4 Ml Syringe SUB-Q 40 mg DAILY DRAKE Administration Escitalopram Oxalate 10 mg 06/02/21 21:00 06/04/21 20:11 Escitalopram Oxalate 10 Mg Tablet PO 10 mg HS DRAKE Administration Famotidine 20 mg 06/04/21 21:00 06/05/21 08:09 Famotidine 20 Mg/2 Ml Vial IV PUSH 20 mg Q12HR DRAKE Administration Sodium Chloride 1,000 mls @ 1
[2021-06-05] MEDS: IBUPROFEN IV 800 MG/200 ML 800 MG/200 ML BAG 200 MG IVPB (17:47)
[2021-06-05] MEDS: ONDANSETRON INJ 4 MG/2 ML VIAL IV PUSH (17:51)
[2021-06-05] MEDS: MORPHINE SULFATE PCA (*CRX) 30 MG/30 ML SYR IV CONT (20:30)
[2021-06-05] MEDS: PANTOPRAZOLE 40 MG TABLET PO (21:15)
[2021-06-05] MEDS: ZOLPIDEM TARTRATE (*CRX) 5 MG TABLET 10 MG PO (21:15)
[2021-06-05] MEDS: ESCITALOPRAM OXALATE 10 MG TABLET PO (21:15)
[2021-06-05] MEDS: ACETAMINOPHEN 500 MG TABLET PO (21:15)
[2021-06-06] VITALS (15 sets, daily range): BP systolic 127–171; BP diastolic 72–100; PULSE 100–123; RESP 17–21; TEMP 36.1–38.1; O2SAT 90–99
[2021-06-06] MEDS: MORPHINE SULFATE PCA (*CRX) 30 MG/30 ML SYR IV CONT ×3 (01:41→21:24)
[2021-06-06 05:51] LABS: Hematocrit 38.9 % (42.0-52.0); Hemoglobin 13.1 g/dL (14.0-18.0); Mean Corpuscular HGB Conc 33.7 g/dl (32-36); Mean Corpuscular Hemoglobin 30.8 pg (26-34); Mean Corpuscular Volume 91.5 fl (80-100); Mean Platelet Volume 10.3 fl (7.4-10.4); Platelet Count Result 180 k/mm3 (150-375); Red Blood Count 4.25 M/mm3 (4.6-6.20); Red Cell Distribution Width 13.2 % (11.5-14.5); White Blood Count 12.6 K/mm3 (4.5-10.0)
[2021-06-06 06:00] LABS: Alanine Aminotransferase 322 U/L (4-50); Albumin Level 3.7 g/dL (3.5-5.1); Alkaline Phosphatase 109 U/L (38-126); Anion Gap 6 mmol/L (8-16); Aspartate Amino Transferase 82 U/L (17-59); Bilirubin,Total 3.8 mg/dL (0.2-1.3); Blood Urea Nitrogen 12 mg/dL (9-20); Calcium 8.4 mg/dL (8.4-10.2); Carbon Dioxide 25 mmol/L (22-30); Chloride 102 mmol/L (98-107); Estimated CRCL calculation 111 ml/min; Estimated Glomerular Filt Rate > 60; Glucose 88 mg/dL (65-110); Lipase 877 U/L (23-300); Potassium 3.7 mmol/L (3.4-5.0); Sodium 133 mmol/L (137-145)
--- NOTE | 2021-06-06 09:33 | WPDGIPROGNO ---
Progress Note: A&P Assessment and Plan (1) Pancreatitis: Code(s): K85.90 - Acute pancreatitis without necrosis or infection, unspecified Status: Acute Assessment and Plan: no major changes in symptoms, still requiring CONVERTING TECHNICIAN noted increase bili to 3.8 but transaminases improved pending CT scan a/p from this morning given persistent pain and higher bilirubin possible post ercp pancreatitis (had sphincterotomy with small amount of sludge removed), continue medical support, trend liver enzymes surgery on board Dr Espinoza returns tomorrow (2) Transaminitis: Code(s): R74.01 - Elevation of levels of liver transaminase levels Status: Acute Assessment and Plan: continue to monitor (3) Cholelithiasis with chronic cholecystitis: Code(s): K80.10 - Calculus of gallbladder with chronic cholecystitis without obstruction Status: Chronic Assessment and Plan: eventually will need cholecystectomy (4) Abdominal pain: Code(s): R10.9 - Unspecified abdominal pain Status: Acute Subjective Date/time seen: 06/06/21 09:33 Interval history: abdominal pain is unchanged and still requiring CONVERTING TECHNICIAN narcotic, he has nausea but no vomiting. He just completed another CT scan a/p few minutes ago. Review of Systems Review of Systems: All systems reviewed & are unremarkable except as noted in HPI and below Exam Const: Other: uncomfortable because abdominal pain HENMT: General nose exam: Normal nares present Eyes: Sclera: sclerae normal Neck: Neck: supple Resp: Auscultation: clear to auscultation bilaterally Cardio: Rate: regular rate GI: Inspection: distended GI Palp: Yes Soft to palpation and Yes Tenderness to palpation present (GI) (epigastric, no rebound) Auscultation: normal bowel sounds Skin: General skin exam: normal color Neuro: Speech: normal speech Motor exam (neuro): Normal motor muscle tone present throughout Extrem: General: normal to inspection Psych: Mental Status: mental status grossly normal Objective Data Vital Signs Vital Signs: Vital Signs - 24 hr 06/05/21 10:52 06/05/21 15:00 06/05/21 19:15 Temperature 99.9 F H 99.8 F H Pulse Rate 95 87 Respiratory Rate 18 Blood Pressure 145/89 H 143/73 H Pulse Oximetry 94 95 06/05/21 20:30 06/05/21 21:15 06/05/21 22:15 Temperature 100.4 F H 100.6 F H Pulse Rate 91 Respiratory Rate 16 20 Blood Pressure 144/88 H Pulse Oximetry 98 94 06/06/21 00:06 06/06/21 01:41 06/06/21 04:00 Temperature 100.6 F H 99.2 F Pulse Rate 113 H Respiratory Rate 18 20 Blood Pressure 127/72 Pulse Oximetry 99 92 Intake/Output Intake/Output: Intake & Output 06/03/21 06/04/21 06/05/21 06/06/21 23:59 23:59 23:59 23:59 Intake Total 1418 1790 2910 30 Output Total 2400 1600 300 400 Balance -398 541 7272 -370 Meds/Results Medications: Active Medications Generic Name Dose Route Start Last Admin Trade Name Freq PRN Reason Stop Dose Admin Acetaminophen 500 mg 06/03/21 15:23 06/05/21 21:15 Acetaminophen 500 Mg Tablet PO 500 mg Q4H PRN Administration Mild Pain (1-3) or Fever Hydrocodone Bitart/Acetaminophen 2 tab 06/03/21 15:08 06/04/21 10:16 Hydrocodone/Acetaminophen (*Crx) 5-325 Mg Tablet PO 2 tab Q6H PRN Administration Pain Rated 7-10 Hydrocodone Bitart/Acetaminophen 1 tab 06/03/21 15:08 06/04/21 02:13 Hydrocodone/Acetaminophen (*Crx) 5-325 Mg Tablet PO 1 tab Q6H PRN Administration Pain Rated 4-6 Calcium Carbonate 200 mg 06/02/21 19:40 06/04/21 04:20 Calcium Carbonate (Tums) 500 Mg (200 Mg Elemental) PO 200 mg Q6H PRN Administration Indigestion Enoxaparin Sodium 40 mg 06/05/21 09:00 06/05/21 08:09 Enoxaparin 40 Mg/0.4 Ml Syringe SUB-Q 40 mg DAILY DRAKE Administration Escitalopram Oxalate 10 mg 06/02/21 21:00 06/05/21 21:15 Escitalopram Oxalate 10 Mg Tablet PO 10 mg HS DRAKE Administration Famotidine 20 mg
--- NOTE | 2021-06-06 09:57 | PM.PNGS ---
Progress Note: A&P Assessment and Plan (1) Pancreatitis: Qualifiers: Chronicity: acute Pancreatitis type: other Acute pancreatitis complication: no infection or necrosis Qualified Code(s): K85.80 - Other acute pancreatitis without necrosis or infection Code(s): K85.90 - Acute pancreatitis without necrosis or infection, unspecified Status: Acute Assessment and Plan: Despite having biochemical evidence of improvement, patient continues to have severe pain consistent with acute pancreatitis. AIRLINE ATTENDANT was started last night for pain control and this has helped. He continues to have pain and is somewhat lethargic. He has some low-grade fever as well. Continue minimal p.o. intake, only clear liquids. Continue to follow clinical status. Hopefully pain will start to resolve soon. (2) Cholelithiasis with chronic cholecystitis: Qualifiers: Cholelithiasis location: gallbladder Biliary obstruction: without biliary obstruction Qualified Code(s): K80.10 - Calculus of gallbladder with chronic cholecystitis without obstruction Code(s): K80.10 - Calculus of gallbladder with chronic cholecystitis without obstruction Status: Chronic Assessment and Plan: Tentatively scheduled for laparoscopic cholecystectomy on Monday, will not be able to proceed if pancreatitis has not subsided. Subjective Subjective Date/Time Seen: 06/06/21 09:57 Patient reports: still having pain (Called last night as pain was worse, started AIRLINE ATTENDANT which has helped), no bowel movement and fever Review of Systems Review of Systems: All systems reviewed & are unremarkable except as noted in HPI and below Constitutional: Constitutional: Reports as per HPI, Reports body ache(s), Denies chills, Reports daytime sleepiness, Reports fever(s), Reports malaise and Reports poor appetite Cardiovascular: Cardiovascular: Denies chest pain and Denies dyspnea Respiratory: Respiratory: Denies cough and Denies dyspnea Gastrointestinal: Gastrointestinal: Reports as per HPI, Reports abdominal pain (Better with AIRLINE ATTENDANT started last night), Denies nausea and Denies vomiting Neurologic: Reports as per HPI, Denies headache(s) and Reports weakness Psychiatric: Psychiatric: Reports abnormal sleep pattern and Reports difficulty concentrating Exam Const: General: no acute distress, awake, ill appearing, lethargic and uncomfortable; No confusion Nutritional Appearance: overweight Orientation/consciousness: lethargic GI: Inspection: non-distended and no scars GI Palp: Yes Soft to palpation, Yes Tenderness to palpation present (GI) (Epigastric area), Yes Guarding due to palpation present (GI) and No Rebound tenderness present Extrem: General: no calf tenderness and no edema Objective Data Vital Signs Vital Signs: Vital Signs - 24 hr 06/05/21 10:52 06/05/21 15:00 06/05/21 19:15 Temperature 37.7 C H 37.7 C H Pulse Rate 95 87 Respiratory Rate 18 Blood Pressure 145/89 H 143/73 H Pulse Oximetry 94 95 06/05/21 20:30 06/05/21 21:15 06/05/21 22:15 Temperature 38.0 C H 38.1 C H Pulse Rate 91 Respiratory Rate 16 20 Blood Pressure 144/88 H Pulse Oximetry 98 94 06/06/21 00:06 06/06/21 01:41 06/06/21 04:00 Temperature 38.1 C H 37.3 C Pulse Rate 113 H Respiratory Rate 18 20 Blood Pressure 127/72 Pulse Oximetry 99 92 Intake/Output Intake/Output: Intake & Output 06/03/21 06/04/21 06/05/21 06/06/21 23:59 23:59 23:59 23:59 Intake Total 1418 1790 2910 30 Output Total 2400 1600 300 400 Balance -911 480 4432 -370 Meds/Results Medications: Active Medications Generic Name Dose Route Start Last Admin Trade Name Freq PRN Reason Stop Dose Admin Acetaminophen 500 mg 06/03/21 15:23 06/05/21 21:15 Acetaminophen 500 Mg Tablet PO 500 mg Q4H PRN Administration Mild Pain (1-3) or Fever Hydrocodone Bitart/Acetaminophen 2 tab 06/03/21 15:08 06/04/21 10:16 Hydrocodone/Acetaminophen (*Crx) 5-
[2021-06-06] MEDS: ENOXAPARIN 40 MG/0.4 ML SYRINGE SUB-Q (10:34)
[2021-06-06] MEDS: FAMOTIDINE 20 MG/2 ML VIAL IV PUSH ×2 (10:38→20:30)
--- NOTE | 2021-06-06 10:58 | PC.NURSE ---
When to change out syringe of INJECTION MOLDER checked vitals observed elevated HR and SPO2 84%RA, pt is able to deep breathe and SPO2 increased to 90-91%, pt is alert and oriented times three, INJECTION MOLDER no restarted at this time, paged Dr. Gasca awaiting return call educated on use of incentive spirometer, encouraged pt to get up and walk, pt walked around unit 2 times, then back to resting in bed spo2 87% while resting, 1.5liters of oxygen applied and spo2 elevated to 96% pt states will get up and sit in wheelchair. Dr. Bishop also made aware of concerns with page out to Dr. Gasca she will go see patient.
--- NOTE | 2021-06-06 11:34 | PM.IMPN ---
Progress Note: A&P Assessment and Plan (1) Abdominal pain: Code(s): R10.9 - Unspecified abdominal pain Status: Acute Assessment and Plan: S/p ERCP 06/03/2021 Pt is NPO with iv fluids since yesterday Pt had stat ct abdomen yesterday Ct abdomen today shows moderate peripancreatic, mesenteric inflammation, acute pancreatitis. Pt small amount of gastric cardial wall emphysema, could be from recent ERCP. 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 prn for severe pain 8-10 (2) Transaminitis: Code(s): R74.01 - Elevation of levels of liver transaminase levels Status: Acute Assessment and Plan: LFTS improving slowly 82/322/109 (3) Cholelithiasis: Qualifiers: Biliary obstruction: without biliary obstruction Cholecystitis presence: without cholecystitis Cholelithiasis location: gallbladder Qualified Code(s): K80.20 - Calculus of gallbladder without cholecystitis without obstruction Code(s): K80.20 - Calculus of gallbladder without cholecystitis without obstruction Status: Acute Assessment and Plan: Likely will need cholecystectomy on Tueday when acute abdomen settles General surgery following LFTS improving slowly 82/322/109 (4) Depression with anxiety: Code(s): F41.8 - Other specified anxiety disorders Status: Acute Assessment and Plan: Stable Continue citalopram (5) Gastroesophageal reflux disease: Code(s): K21.9 - Gastro-esophageal reflux disease without esophagitis Status: Chronic Assessment and Plan: Continue omeprazole (6) Smoker: Code(s): F17.200 - Nicotine dependence, unspecified, uncomplicated Status: Chronic Assessment and Plan: Smoking cessation is encouraged Declined the need for nicotine patch (7) Insomnia: Code(s): G47.00 - Insomnia, unspecified Status: Acute Assessment and Plan: Continue Ambien at bedtime (8) Pancreatitis: Qualifiers: Chronicity: acute Pancreatitis type: other Acute pancreatitis complication: no infection or necrosis Qualified Code(s): K85.80 - Other acute pancreatitis without necrosis or infection Code(s): K85.90 - Acute pancreatitis without necrosis or infection, unspecified Status: Acute Assessment and Plan: Ct abdomen today shows moderate peripancreatic, mesenteric inflammation, acute pancreatitis. Pt small amount of gastric cardial wall emphysema, could be from recent ERCP. No free intraperitoneal. Keep npo with fluids Surgery and Gi rounding. continue to monitor lipase and CMP, continue analgesia and antiemetics Subjective Date/time seen: 06/06/21 11:34 Interval history: 50-year-old male smoker with GERD who presented to the emergency department earlier today from home for evaluation of abdominal pain. About an hour after eating dinner to consist of a double cheeseburger and deng potato wedges he developed discomfort in the epigastric and right upper quadrant regions that is almost a burning and squeezing like sensation associated with pretty significant nausea and sweats. He has had similar episodes off and on over the last 2 years and they have been self-limiting, lasting between 30 to 45 minutes. Unfortunately his symptoms did not go way and he was up most of the night in pain. In the emergency department today he was found to have elevated LFTs (total bilirubin 1.7, AST 1668, ALT 1462, alkaline phosphatase 127) and he is being admitted in this setting. A CT of the abdomen and pelvis showed cholelithiasis and trace amount of fluid between the liver and gallbladder with cholelithiasis noted on ultrasound without evidence of gallbladder wall thickening. Pt had ERCP on 06/03/2021howing biliary stone and bear
[2021-06-06] MEDS: hydrALAZINE HCL 25 MG TABLET PO ×2 (13:51→17:44)
[2021-06-06] MEDS: ONDANSETRON INJ 4 MG/2 ML VIAL IV PUSH (16:33)
[2021-06-06] MEDS: hydrALAZINE HCL 20 MG/ML VIAL 10 MG IV PUSH (19:56)
[2021-06-06] MEDS: ZOLPIDEM TARTRATE (*CRX) 5 MG TABLET 10 MG PO (20:31)
[2021-06-06] MEDS: PANTOPRAZOLE 40 MG TABLET PO (20:31)
[2021-06-06] MEDS: ESCITALOPRAM OXALATE 10 MG TABLET PO (20:31)
[2021-06-06] MEDS: SODIUM CHLORIDE 0.9% IV 1,000 ML 100 ML IV CONT (21:30)
[2021-06-07] VITALS (19 sets, daily range): BP systolic 129–156; BP diastolic 58–89; PULSE 88–111; RESP 18–26; TEMP 36–36.4; O2SAT 90–100
--- NOTE | 2021-06-07 03:57 | PC.NURSE ---
PT LETHARGIC, WILL RESPOND QUICKLY, FELL ASLEEP ON TOILET, BACK TO BED AND FELL ASLEEP TALKING TO NURSE. DR FOLEY NOTIFIED ORDERS RECEIVED.
[2021-06-07] MEDS: MORPHINE SULFATE PCA (*CRX) 30 MG/30 ML SYR IV CONT ×2 (04:20→16:35)
[2021-06-07 07:02] LABS: Mean Corpuscular HGB Conc 33.3 g/dl (32-36); Mean Corpuscular Hemoglobin 31.6 pg (26-34); Mean Corpuscular Volume 94.7 fl (80-100); Mean Platelet Volume 10.4 fl (7.4-10.4); Platelet Count Result 151 k/mm3 (150-375); Red Cell Distribution Width 13.6 % (11.5-14.5); White Blood Count 10.1 K/mm3 (4.5-10.0)
[2021-06-07 07:14] LABS: Alanine Aminotransferase 219 U/L (4-50); Albumin Level 3.5 g/dL (3.5-5.1); Alkaline Phosphatase 112 U/L (38-126); Anion Gap 11 mmol/L (8-16); Aspartate Amino Transferase 59 U/L (17-59); Bilirubin,Total 2.2 mg/dL (0.2-1.3); Blood Urea Nitrogen 12 mg/dL (9-20); Calcium 8.2 mg/dL (8.4-10.2); Carbon Dioxide 24 mmol/L (22-30); Chloride 101 mmol/L (98-107); Estimated CRCL calculation 97 ml/min; Estimated Glomerular Filt Rate > 60; Glucose 99 mg/dL (65-110); Lipase 121 U/L (23-300); Potassium 3.5 mmol/L (3.4-5.0); Sodium 136 mmol/L (137-145)
[2021-06-07] MEDS: hydrALAZINE HCL 25 MG TABLET PO ×3 (08:48→16:34)
[2021-06-07] MEDS: ENOXAPARIN 40 MG/0.4 ML SYRINGE SUB-Q (08:48)
[2021-06-07] MEDS: FAMOTIDINE 20 MG/2 ML VIAL IV PUSH ×2 (08:48→20:09)
--- NOTE | 2021-06-07 08:58 | PC.NURSE ---
ELECTRICAL TECHNOLOGY INSTRUCTOR PUMP SEDATION SCALE. I have a call out to IT due to the ELECTRICAL TECHNOLOGY INSTRUCTOR pump order being inserted in the MAR incorrectly. The ELECTRICAL TECHNOLOGY INSTRUCTOR pump requires you to insert a continuous rate although the order is for 0ml/hr continuous with a 1mg dose PRN with a 10 min lockout. The pump is not going at 1ml/hr and will not let you save the assessment with charting 0 as the rate. The patient's effort is normal, depth is normal, pattern is regular, pulse ox-95%, 22, no side effects, ELECTRICAL TECHNOLOGY INSTRUCTOR status continued- ELECTRICAL TECHNOLOGY INSTRUCTOR only, LOC- patient sleeping- easily arousable. Will wait for a call back from IT to fix the issue.
[2021-06-07] MEDS: KCL 40 MEQ/D5/0.9% SOD CHL 1,000 ML 80 ML IV CONT (09:59)
--- NOTE | 2021-06-07 11:03 | PM.PNGS ---
Progress Note: A&P Assessment and Plan (1) Pancreatitis: Qualifiers: Chronicity: acute Pancreatitis type: other Acute pancreatitis complication: no infection or necrosis Qualified Code(s): K85.80 - Other acute pancreatitis without necrosis or infection Code(s): K85.90 - Acute pancreatitis without necrosis or infection, unspecified Status: Acute Assessment and Plan: Lipase normal this morning and his abdominal pain is finally starting to improve. 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 Continue to clinically follow his progression. Continue a clear liquid diet. Plan to make him NPO after midnight for surgery tomorrow. (2) Cholelithiasis with chronic cholecystitis: Qualifiers: Cholelithiasis location: gallbladder Biliary obstruction: without biliary obstruction Qualified Code(s): K80.10 - Calculus of gallbladder with chronic cholecystitis without obstruction Code(s): K80.10 - Calculus of gallbladder with chronic cholecystitis without obstruction Status: Chronic Assessment and Plan: Tentatively scheduled for laparoscopic cholecystectomy tomorrow by Dr. Gasca. Additional Plan I have discussed the patient's case and plan of care with Dr. Gasca. Subjective Subjective Date/Time Seen: 06/07/21 09:33 Patient reports: no new complaints, feels better, still having pain, flatus and afebrile Interval history: This is a 50 yo male who presented with cholelithiasis and transaminitis. He underwent an ERCP on 06/06/21. He developed acute pancreatitis and has been undergoing medical treatment for such. Currently, his abdominal pain is being controlled with a DISABILITY LIAISON OFFICER. Chart reviewed. The patient was seen and examined this morning. No new complaints. Reports his pain is well-controlled today and he feels slightly better this morning than yesterday. He did have some nausea overnight, but no vomiting. Denies any nausea this morning. Reports bloating. No other complaints at this time. Review of Systems Review of Systems: All systems reviewed & are unremarkable except as noted in HPI and below Gastrointestinal: Gastrointestinal: Reports as per HPI and Reports no additional gastrointestinal complaints Exam Const: General: no acute distress, awake, tired appearing and uncomfortable Nutritional Appearance: overweight GI: Inspection: non-distended, no scars and no visible herniation GI Palp: Yes Soft to palpation, Yes Tenderness to palpation present (GI) (tender throughout but worst in the upper abd), Yes Guarding due to palpation present (GI) and No Rebound tenderness present Auscultation: Hypoactive bowel sounds present Neuro: General: moves all extremities and no focal motor deficits Extrem: General: normal to inspection Psych: Mental Status: mental status grossly normal Insight: Good insight present (Psych) Judgement: Good judgement present (Psych) Objective Data Vital Signs Vital Signs: Vital Signs - 24 hr 06/06/21 12:11 06/06/21 12:35 06/06/21 13:41 Temperature 97.7 F Pulse Rate 112 H 101 H Respiratory Rate 20 17 Blood Pressure 171/97 H Pulse Oximetry 97 96 97 06/06/21 15:18 06/06/21 18:13 06/06/21 19:29 Temperature 96.9 F L 97.3 F L Pulse Rate 104 H 105 H 101 H Respiratory Rate 20 18 18 Blood Pressure 168/91 H 164/100 H 151/91 H Pulse Oximetry 94 95 98 06/06/21 20:00 06/06/21 20:03 06/06/21 21:15 Temperature Pulse Rate 100 Respiratory Rate 21 H Blood Pressure 152/88 H Pulse Oximetry 90 96 06/06/21 21:24 06/07/21 00:00 06/07/21 01:10 Temperature 96.9 F L Pulse Rate 111 H Respiratory Rate 20 20 20 Blood Pressure 156/74 H Pulse Oximetry 96 92 90 06/07/21 03:07 06/07/21 04:20 06/07/21 10:00 Temperature 97.5 F L 97.3 F L Pulse Rate 97 89 Respiratory Rate 20 20 18 Blood Pressure 140/86 152/85 H Pulse Oximetry 98 92 92 06/07/21 10:25 Temperature Pulse Rate 94 Respiratory Rate 26 H Blood Pressure Pulse
--- NOTE | 2021-06-07 11:39 | PM.IMPN ---
Progress Note: A&P Assessment and Plan (1) Abdominal pain: Code(s): R10.9 - Unspecified abdominal pain Status: Acute Assessment and Plan: -Pt had ERCP on 06/03/2021 showing biliary stone and choledocholithiasis -Repeat CT 06/06/21 showing moderate peripancreatic, mesenteric inflammation, acute pancreatitis. Small amount of gastric cardial wall emphysema, could be from recent ERCP. No free intraperitoneal gas. -Plan is for cholecystectomy tomorrow. -Pt on MANAGER EDUCATION morphine per surgery, still having 6/10 pain. -Tolerating clear liquids, NPO at midnight. -Lipase down from 9000 to 3000 to 800 to 121 today -LFTs continue to improve as well -Analgesics and antiemetics to continue -Surgery and Gi rounding (2) Transaminitis: Code(s): R74.01 - Elevation of levels of liver transaminase levels Status: Acute Assessment and Plan: LFTS improving slowly -Monitor w/ daily labs (3) Cholelithiasis: Qualifiers: Biliary obstruction: without biliary obstruction Cholecystitis presence: without cholecystitis Cholelithiasis location: gallbladder Qualified Code(s): K80.20 - Calculus of gallbladder without cholecystitis without obstruction Code(s): K80.20 - Calculus of gallbladder without cholecystitis without obstruction Status: Acute Assessment and Plan: -See above -Plan is cholecystectomy tomorrow -General surgery following -LFTS improving slowly (4) Depression with anxiety: Code(s): F41.8 - Other specified anxiety disorders Status: Acute Assessment and Plan: -Stable -Continue citalopram (5) Gastroesophageal reflux disease: Code(s): K21.9 - Gastro-esophageal reflux disease without esophagitis Status: Chronic Assessment and Plan: -Continue omeprazole (6) Smoker: Code(s): F17.200 - Nicotine dependence, unspecified, uncomplicated Status: Chronic Assessment and Plan: -Smoking cessation is encouraged -Declined the need for nicotine patch (7) Insomnia: Code(s): G47.00 - Insomnia, unspecified Status: Acute Assessment and Plan: -Continue Ambien at bedtime (8) Pancreatitis: Qualifiers: Chronicity: acute Pancreatitis type: other Acute pancreatitis complication: no infection or necrosis Qualified Code(s): K85.80 - Other acute pancreatitis without necrosis or infection Code(s): K85.90 - Acute pancreatitis without necrosis or infection, unspecified Status: Acute Assessment and Plan: -Ct abdomen shows moderate peripancreatic, mesenteric inflammation, acute pancreatitis. Pt small amount of gastric cardial wall emphysema, could be from recent ERCP. No free intraperitoneal. -Tolerating clears, NPO at midnight for procedure tomorrow. -Lipase normalized today -Surgery and Gi rounding. -continue to monitor lipase and CMP, continue analgesia and antiemeticsas needed Additional Plan Lovenox held in preparation for surgery, SCDs for now Subjective Date/time seen: 06/07/21 11:39 Interval history: 50-year-old male smoker with GERD found to have elevated LFTs (total bilirubin 1.7, AST 1668, ALT 1462, alkaline phosphatase 127) and he is being admitted in this setting. A CT of the abdomen and pelvis showed cholelithiasis and trace amount of fluid between the liver and gallbladder with cholelithiasis noted on ultrasound without evidence of gallbladder wall thickening. Pt had ERCP on 06/03/2021 showing biliary stone and choledocholithiasis Repeat CT 06/06/21 showing moderate peripancreatic, mesenteric inflammation, acute pancreatitis. Small amount of gastric cardial wall emphysema, could be from recent ERCP. No free intraperitoneal gas. Plan is for cholecystectomy tomorrow. Pt on MANAGER EDUCATION morphine per surgery, still having 6/10 pain. No N/V. Tolerating clear liquids. Passing flatus but no bowel movements. No urinary issues. Review of
--- NOTE | 2021-06-07 12:19 | PC.NURSE ---
SHIFT BOSS PUMP SEDATION SCALE. I still have a call out to IT due to the SHIFT BOSS pump order being inserted in the MAR incorrectly. The patient's effort is normal, depth is normal, pattern is regular, pulse ox-94%, respiratory rate is 18, no side effects, SHIFT BOSS status continued- SHIFT BOSS only, LOC- patient sleeping- easily arousable. Will wait for a call back from IT to fix the issue.
--- NOTE | 2021-06-07 14:43 | WPDGIPROGNO ---
Progress Note: A&P Assessment and Plan (1) Cholelithiasis with chronic cholecystitis: Qualifiers: Cholelithiasis location: gallbladder Biliary obstruction: without biliary obstruction Qualified Code(s): K80.10 - Calculus of gallbladder with chronic cholecystitis without obstruction Code(s): K80.10 - Calculus of gallbladder with chronic cholecystitis without obstruction Status: Chronic Assessment and Plan: only sludge like particles were produced with the sphincterotomy yesterday. The plan is that he will have a cholecystectomy electively because it is not acutely inflamed. Dr. novak is following. the patient states that the plan is tentatively for him to have cholecystectomy on Monday. Orders have been left for him to be NPO after midnight (2) Pancreatitis: Qualifiers: Chronicity: acute Pancreatitis type: other Acute pancreatitis complication: no infection or necrosis Qualified Code(s): K85.80 - Other acute pancreatitis without necrosis or infection Code(s): K85.90 - Acute pancreatitis without necrosis or infection, unspecified Status: Acute Assessment and Plan: 06/05/21 although we suspected possible pancreatitis on admission, his lipase was normal. Very likely the ERCP is responsible at least in part for his pancreatitis though this is surprising in view of the fact that his common bile duct was easily and selectively cannulated without bothering the pancreatic duct. He has quite a bit of pain and unfortunately he was not given anything such as morphine during the night or blue split trimmer until after his arrived at the hospital yesterday morning. He is still having significant pain requiring morphine. I will offer him clear liquids. 06/07/21 he is okay with just liquids. He will be NPO after midnight for cholecystectomy tomorrow Lipase has decreased to [address] scan yesterday did not show any significant worsening or pseudocysts, abscess or necrosis (3) Transaminitis: Code(s): R74.01 - Elevation of levels of liver transaminase levels Status: Acute Assessment and Plan: finally the LFTs are normalizing. AST which was 1665 is now down to 59. Subjective Date/time seen: 06/07/21 14:43 Date/time seen: 06/05/21 11:02 The patient is still having rather severe pain requiring morphine every 2 hours. He did sleep during the night and went about 5 hours between morphine administration. He states that he is not hungry. He still has hiccups and burps [place] [address] Amylase lipase though still elevated are coming down. I discussed his case with his nurse. She states that he has asked for morphine but is not due for it for about 15 more minutes. He states that it 'helps' with the pain but does not last quite 2 hours. date seen 06/07/21 today he states his pain is better but still requiring morphine PARKER. Slept during the night. In fact they came to see him about 7:00 a.m. when he was sleeping soundly. The pain is somewhat better each day. He still does not feel like he would want to eat even if we allowed him to. The burping has settled Review of Systems Review of Systems: All systems reviewed & are unremarkable except as noted in HPI and below Exam Const: General: cooperative, no acute distress, ill appearing and uncomfortable; No diaphoretic Orientation/consciousness: patient oriented x3 Eyes: Sclera: sclerae normal Chest: Chest palpation & inspection: normal inspection of the chest and no tenderness Resp: Auscultation: clear to auscultation bilaterally GI: Inspection: normal to inspection and distended GI Palp: Yes abdominal tenderness ( generalized but less so than on Monday) Auscultation: normal bowel sounds Neuro: General: patient oriented x3 Objective Data Vital Signs Vital Signs: Vital Signs - 24 hr 06/06/21 15:18 06/06/21 18:13 06/06/21 19:29 Temperature 36.1 C L 36.3 C
--- NOTE | 2021-06-07 15:00 | PC.NURSE ---
FARM TECHNICIAN PUMP SEDATION SCALE. Received a call back from IT. Teagan is going to speak with the pharmacy IT and get the order put in the MAR correctly. In the meantime the patient's pump is going at 0ml/hr continuous with 1mg FARM TECHNICIAN only, effort is normal, depth is normal, pattern is regular, pulse ox-95%, respiratory rate is 22, no side effects, FARM TECHNICIAN status continued- FARM TECHNICIAN only, LOC- slightly drowsy- easily arousable. Will wait for a call back from IT to see if the order is fixed.
[2021-06-07] MEDS: SIMETHICONE 80 MG TAB.CHEW PO ×2 (16:33→20:10)
[2021-06-07] MEDS: ZOLPIDEM TARTRATE (*CRX) 5 MG TABLET 10 MG PO (20:10)
[2021-06-07] MEDS: ESCITALOPRAM OXALATE 10 MG TABLET PO (20:10)
[2021-06-07] MEDS: DOCUSATE SODIUM 100 MG CAPSULE PO (20:10)
[2021-06-07] MEDS: PANTOPRAZOLE 40 MG TABLET PO (20:10)
[2021-06-07] MEDS: KCL 40 MEQ/D5/0.9% SOD CHL 1,000 ML 100 ML IV CONT (21:00)
[2021-06-08] VITALS (24 sets, daily range): BP systolic 119–160; BP diastolic 71–92; PULSE 72–100; RESP 10–20; TEMP 36–37.8; O2SAT 90–99
[2021-06-08 06:51] LABS: Basophils Absolute Auto 0.1 K/mm3 (0.0-0.1); Basophils Percent Auto 0.4 % (0.2-1.2); Eosinophils Percent Auto 0.4 % (0-4.4); Hematocrit 35.6 % (42.0-52.0); Hemoglobin 11.8 g/dL (14.0-18.0); Immature Granulocyte Absolute 0.11 K/mm3 (0.00-0.031); Lymphocytes Absolute Auto 0.54 K/mm3 (0.9-3.2); Lymphocytes Percent Auto 4.8 % (18.3-44.2); Mean Corpuscular HGB Conc 33.1 g/dl (32-36); Mean Corpuscular Hemoglobin 30.4 pg (26-34); Mean Corpuscular Volume 91.8 fl (80-100); Mean Platelet Volume 9.8 fl (7.4-10.4); Neutrophils Absolute Auto 9.5 K/mm3 (1.3-6.7); Neutrophils Percent Auto 84.4 % (45.5-73.1); Platelet Count Result 201 k/mm3 (150-375); Red Blood Count 3.88 M/mm3 (4.6-6.20); Red Cell Distribution Width 13.3 % (11.5-14.5); White Blood Count 11.3 K/mm3 (4.5-10.0)
[2021-06-08 07:09] LABS: Alanine Aminotransferase 167 U/L (4-50); Albumin Level 3.6 g/dL (3.5-5.1); Alkaline Phosphatase 116 U/L (38-126); Amylase 51 U/L (30-110); Aspartate Amino Transferase 46 U/L (17-59); Bilirubin,Total 1.9 mg/dL (0.2-1.3); Blood Urea Nitrogen 8 mg/dL (9-20); Calcium 8.2 mg/dL (8.4-10.2); Carbon Dioxide 28 mmol/L (22-30); Chloride 99 mmol/L (98-107); Estimated CRCL calculation 112 ml/min; Estimated Glomerular Filt Rate > 60; Glucose 108 mg/dL (65-110); Lipase 47 U/L (23-300); Potassium 3.4 mmol/L (3.4-5.0)
[2021-06-08 07:17] LABS: Anion Gap 6 mmol/L (8-16); Sodium 133 mmol/L (137-145)
[2021-06-08 08:23] LABS: Magnesium 2.3 mg/dL (1.6-2.3)
[2021-06-08] MEDS: CHLORHEXIDINE GLUCONATE 4% SOL 120 ML BTL 1 APPLIC TOPICAL (09:06)
[2021-06-08] MEDS: SIMETHICONE 80 MG TAB.CHEW PO ×3 (09:06→20:38)
[2021-06-08] MEDS: hydrALAZINE HCL 25 MG TABLET PO ×2 (09:06→17:10)
[2021-06-08] MEDS: DOCUSATE SODIUM 100 MG CAPSULE PO (09:06)
[2021-06-08] MEDS: FAMOTIDINE 20 MG/2 ML VIAL IV PUSH ×2 (09:07→20:38)
--- NOTE | 2021-06-08 09:33 | PM.IMPN ---
Progress Note: A&P Assessment and Plan (1) Abdominal pain: Code(s): R10.9 - Unspecified abdominal pain Status: Acute Assessment and Plan: -Pt had ERCP on 06/03/2021 showing biliary stone and choledocholithiasis -Repeat CT 06/06/21 showing moderate peripancreatic, mesenteric inflammation, acute pancreatitis. Small amount of gastric cardial wall emphysema, could be from recent ERCP. No free intraperitoneal gas. -Pt on MACHINE MAINTENANCE morphine per surgery, still having 6/10 pain. -Tolerating clear liquids, NPO at midnight. -patient going to have a laparoscopic cholecystectomy today with surgery -Lipase down from 9000 to 3000 to 800 to 47 (NL) today -LFTs continue to improve as well, AST NL and ALT 167 -Analgesics and antiemetics to continue -Surgery and Gi rounding (2) Transaminitis: Code(s): R74.01 - Elevation of levels of liver transaminase levels Status: Acute Assessment and Plan: LFTS improving slowly -Monitor w/ daily labs (3) Cholelithiasis: Qualifiers: Biliary obstruction: without biliary obstruction Cholecystitis presence: without cholecystitis Cholelithiasis location: gallbladder Qualified Code(s): K80.20 - Calculus of gallbladder without cholecystitis without obstruction Code(s): K80.20 - Calculus of gallbladder without cholecystitis without obstruction Status: Acute Assessment and Plan: -See above -Plan is cholecystectomy today -General surgery following -LFTS improving slowly (4) Depression with anxiety: Code(s): F41.8 - Other specified anxiety disorders Status: Acute Assessment and Plan: -Stable -Continue citalopram (5) Gastroesophageal reflux disease: Code(s): K21.9 - Gastro-esophageal reflux disease without esophagitis Status: Chronic Assessment and Plan: -Continue omeprazole (6) Smoker: Code(s): F17.200 - Nicotine dependence, unspecified, uncomplicated Status: Chronic Assessment and Plan: -Smoking cessation is encouraged -Declined the need for nicotine patch (7) Insomnia: Code(s): G47.00 - Insomnia, unspecified Status: Acute Assessment and Plan: -Continue Ambien at bedtime (8) Pancreatitis: Qualifiers: Chronicity: acute Pancreatitis type: other Acute pancreatitis complication: no infection or necrosis Qualified Code(s): K85.80 - Other acute pancreatitis without necrosis or infection Code(s): K85.90 - Acute pancreatitis without necrosis or infection, unspecified Status: Acute Assessment and Plan: -Ct abdomen shows moderate peripancreatic, mesenteric inflammation, acute pancreatitis. Pt small amount of gastric cardial wall emphysema, could be from recent ERCP. No free intraperitoneal. -Lipase normalize today -Surgery and GI rounding. -continue to monitor lipase and CMP, continue analgesia and antiemeticsas needed Additional Plan Lovenox held in preparation for surgery, SCDs for now Time Spent With Patient Time with patient: 25 - 35 minutes Subjective Date/time seen: 06/08/21 09:33 Interval history: Date of service 06/08/2021: patient reported pain 6/10 at this time. He states he has less pain than he did yesterday. Yesterday he cannot lay on his back causing worsening pain. He denies any fevers, chills, nausea, vomiting, chest pain, shortness of breath, cough, leg swelling, calf pain, or any other symptoms this time Review of Systems Review of Systems: All systems reviewed & are unremarkable except as noted in HPI and below Exam Narrative: General: 50-year-old man laying flat in bed on his left side. Resting comfortably on 1 L via nasal cannula at 99%. Appears comfortable. In no acute distress. Skin: No jaundice or cyanosis. Good skin turgor. Neck: Full range of motion. Supple. Respiratory: Lungs are clear to auscultation bilaterally. No bony chest wall tenderness
--- NOTE | 2021-06-08 11:39 | PM.PNGS ---
Progress Note: A&P Assessment and Plan (1) Cholelithiasis with chronic cholecystitis: Qualifiers: Cholelithiasis location: gallbladder Biliary obstruction: without biliary obstruction Qualified Code(s): K80.10 - Calculus of gallbladder with chronic cholecystitis without obstruction Code(s): K80.10 - Calculus of gallbladder with chronic cholecystitis without obstruction Status: Chronic Assessment and Plan: Plan to go ahead with laparoscopic cholecystectomy today. Discussed again with the patient. He agrees to go ahead. (2) Pancreatitis: Qualifiers: Chronicity: acute Pancreatitis type: other Acute pancreatitis complication: no infection or necrosis Qualified Code(s): K85.80 - Other acute pancreatitis without necrosis or infection Code(s): K85.90 - Acute pancreatitis without necrosis or infection, unspecified Status: Acute Assessment and Plan: pain much better and labs normal. Feel pancreatitis has significantly resolved and safe to proceed with lap choly. Subjective Subjective Date/Time Seen: 06/08/21 11:39 Patient reports: feels better, pain is less and afebrile Interval history: abdominal pain improved through the night. 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 Definitely feels better this morning. Review of Systems Review of Systems: All systems reviewed & are unremarkable except as noted in HPI and below Constitutional: Constitutional: Denies headache(s) Cardiovascular: Cardiovascular: Denies chest pain and Denies dyspnea Respiratory: Respiratory: Denies cough and Denies dyspnea Gastrointestinal: Gastrointestinal: Reports as per HPI, Reports abdominal pain ( Improved), Denies nausea and Denies vomiting Neurologic: Denies confusion and Denies headache(s) Exam Const: General: comfortable and no acute distress; No confusion Orientation/consciousness: patient oriented x3 and No confusion GI: Inspection: normal to inspection and non-distended GI Palp: Yes Soft to palpation, Yes Tenderness to palpation present (GI) ( less tender, no inflammatory mass), No Guarding due to palpation present (GI), No Palpable mass present and No Rebound tenderness present Neuro: General: patient oriented x3, no focal motor deficits and No confusion Extrem: General: no calf tenderness and no edema Psych: Affect: normal affect Insight: Good insight present (Psych) Judgement: Good judgement present (Psych) Objective Data Vital Signs Vital Signs: Vital Signs - 24 hr 06/07/21 12:19 06/07/21 14:10 06/07/21 15:00 Temperature 36.4 C Pulse Rate 98 Respiratory Rate 18 18 22 H Blood Pressure 129/58 L Pulse Oximetry 94 93 95 06/07/21 16:05 06/07/21 16:34 06/07/21 16:35 Temperature Pulse Rate 88 Respiratory Rate 20 22 H 22 H Blood Pressure 152/85 H Pulse Oximetry 95 95 95 06/07/21 18:22 06/07/21 19:47 06/07/21 20:00 Temperature 36.0 C L Pulse Rate 99 99 Respiratory Rate 18 20 20 Blood Pressure 153/89 H Pulse Oximetry 92 100 100 06/07/21 22:00 06/07/21 23:48 06/08/21 00:26 Temperature 36.1 C L Pulse Rate 99 90 Respiratory Rate 20 20 20 Blood Pressure 149/71 H Pulse Oximetry 100 100 97 06/08/21 02:00 06/08/21 03:14 06/08/21 06:00 Temperature 36.0 C L Pulse Rate 86 Respiratory Rate 18 20 20 Blood Pressure 125/86 Pulse Oximetry 98 96 97 06/08/21 08:00 06/08/21 09:00 06/08/21 10:14 Temperature Pulse Rate 84 Respiratory Rate 20 Blood Pressure Pulse Oximetry 97 97 95 06/08/21 10:30 Temperature 36.6 C Pulse Rate 84 Respiratory Rate 18 Blood Pressure 154/84 H Pulse Oximetry 97 Intake/Output Intake/Output: Intake & Output 06/05/21 06/06/21 06/07/21 06/08/21 23:59 23:59 23:59 23:59 Intake Total 3110 1680 1570 120 Output Total 300 1800 1550 650 Balance 2810 -120 20 -530 Meds/Results Medications: Active Medications Generic Name Dose Route Start Last Admin Trade Name Freq PRN Reason
[2021-06-08] MEDS: KCL 40 MEQ/D5/0.9% SOD CHL 1,000 ML 100 ML IV CONT (12:28)
--- NOTE | 2021-06-08 12:39 | WPDHPUPDATE1 ---
History and Physical Update Update Date/Time: 06/08/21 12:39 History and Physical has been reviewed, including an updated exam of the patient. There are NO changes in the patient's condition. Risks, benefits, and alternatives have been discussed and questions answered. Patient agrees to proceed with procedure.
--- NOTE | 2021-06-08 12:47 | PC.NURSE ---
Patient to OR per bed. Report given to GARCIA Delgado. IV saline locked and TOUR DIRECTOR was paused.
--- NOTE | 2021-06-08 13:12 | WPDANESEPPF ---
Anes - Initial Pre Proc Eval Procedure: Operation Date: 06/08/21 13:30 Proposed Procedures p Laparoscopic Cholecystectomy - Eddie Gasca MD Date/Time: 06/08/21 13:12 Surgeon: Jolanta Sterling PA-C Pre Op Diagnosis: cholelithiasis,transminitis,espigastric pain Patient Data Age: 50 Gender: M Height: 1.63 m Weight: 90.4 kg Last Vital Signs Temp 36.6 C 06/08/21 10:30 Pulse 84 06/08/21 10:30 Resp 18 06/08/21 10:30 BP 154/84 H 06/08/21 10:30 Pulse Ox 97 06/08/21 10:30 Allergies Allergy/AdvReac Type Severity Reaction Status Date / Time No Known Allergies Allergy Verified 06/03/21 09:37 Home Medications Medication Instructions Recorded Confirmed Type escitalopram oxalate 10 mg PO HS 06/02/21 06/03/21 History omeprazole 20 mg PO HS 06/02/21 06/03/21 History zolpidem 10 mg PO HS 06/02/21 06/03/21 History Laboratory Tests 06/08/21 06/08/21 06/08/21 06:33 06:36 06:36 WBC 11.3 K/mm3 H K/mm3 (4.5-10.0) RBC 3.88 M/mm3 L M/mm3 (4.6-6.20) Hgb 11.8 g/dL L g/dL (14.0-18.0) Hct 35.6 % L % (42.0-52.0) MCV 91.8 fl fl (80-100) MCH 30.4 pg pg (26-34) MCHC 33.1 g/dl g/dl (32-36) RDW 13.3 % % (11.5-14.5) Plt Count 201 k/mm3 k/mm3 (150-375) MPV 9.8 fl fl (7.4-10.4) Immature Gran % (Auto) 1.0 % H % (0-0.5) Neut % (Auto) 84.4 % H % (45.5-73.1) Lymph % (Auto) 4.8 % L % (18.3-44.2) [place] % (Auto) 9.0 % H % (2.6-8.5) Eos % (Auto) 0.4 % % (0-4.4) Baso % (Auto) 0.4 % % (0.2-1.2) Lymph # (Auto) 0.54 K/mm3 L K/mm3 (0.9-3.2) [place] # (Auto) 1.0 K/mm3 H K/mm3 (0.1-0.6) Eos # (Auto) 0.0 K/mm3 K/mm3 (0-0.3) Baso # (Auto) 0.1 K/mm3 K/mm3 (0.0-0.1) Abs Immat Gran (auto) 0.11 K/mm3 H K/mm3 (0.00-0.031) Absolute Neuts (auto) 9.5 K/mm3 H K/mm3 (1.3-6.7) Absolute Nucleated RBC 0.0 K/mm3 K/mm3 (0.0-0.012) Nucleated RBC % 0.0 % % (0.0-0.2) Sodium 133 mmol/L L mmol/L (137-145) Potassium 3.4 mmol/L mmol/L (3.4-5.0) Chloride 99 mmol/L mmol/L (98-107) Carbon Dioxide 28 mmol/L mmol/L (22-30) Anion Gap 6 mmol/L L mmol/L (8-16) BUN 8 mg/dL L mg/dL (9-20) Creatinine 0.70 mg/dL mg/dL (0.7-1.3) Estim Creat Clear Calc 112 ml/min ml/min Estimated GFR > 60 (59 - ) Glucose 108 mg/dL mg/dL (65-110) Calcium 8.2 mg/dL L mg/dL (8.4-10.2) Magnesium 2.3 mg/dL mg/dL (1.6-2.3) Total Bilirubin 1.9 mg/dL H mg/dL (0.2-1.3) AST 46 U/L U/L (17-59) ALT 167 U/L H U/L (4-50) Alkaline Phosphatase 116 U/L U/L (38-126) Total Protein 6.0 g/dL L g/dL (6.3-8.2) Albumin 3.6 g/dL g/dL (3.5-5.1) Amylase 51 U/L U/L (30-110) Lipase 47 U/L U/L (23-300) Patient hx anesthesia problems: none Family hx anesthesia problems: none Results Review: All pre-operative results and documents have been reviewed as part of the pre-operative evaluation. [facility] Past Medical History Medical History Depression with anxiety Gastroesophageal reflux disease Insomnia Smoker Surgical History Surgical History (Updated 06/02/21 @ 20:19 by Ann Savage PA-C) History of arthroscopic surgery of elbow Bilateral Status post arthroscopy of hip Left Family History Family History (Updated 06/02/21 @ 20:19 by Ann Savage PA-C) Mother Hypothyroidism Father Esophageal cancer Social History Social History (Updated 06/02/21 @ 20:20 by Ann Savage PA-C) Social History: Surrogate decision maker: Ellie Chapin, spouse. Code status: Full code. Years smoked: 20 Smoking status: Current every day smoker Tobacco type: c
[2021-06-08] MEDS: LACTATED RINGERS 1,000 ML 30 ML IV CONT ×2 (13:44→15:03)
[2021-06-08] MEDS: ceFAZolin 2 GM/D5W 50 ML 2 GM/50 ML BAG IVPB (13:54)
--- NOTE | 2021-06-08 15:17 | W.PM.PROC2 ---
Procedure Note - Detailed Date of Procedure 06/08/21 Pre-op Diagnosis Acute biliary pancreatitis, chronic cholecystitis with gallstones Post-op Diagnosis same Procedure Performed Laparoscopic cholecystectomy Surgeon Eddie Gasca MD Culinary Director Marjorie CARTER Anesthesia general and local (0.5% Marcaine) Indications Patient is a 50-year-old man who presented with right upper quadrant abdominal pain and elevated liver enzymes. He underwent ERCP and developed acute pancreatitis even though the pancreatic duct was not entered during the procedure. His pancreatitis was severe and took several days to improve. His lipase and amylase have both been normal the last 2 days and liver enzymes have improved to where they are nearly normal. Patient still has a questionable hypogastric mass and some pain with eating yesterday. He was feeling better this morning after having been NPO except ice chips last night and is taken to surgery now for laparoscopic cholecystectomy. Findings Multiple gallstones were noted. Mild chronic inflammation was noted. No liver abnormalities were appreciated. No biliary ductal dilatation was noted. There was a 14 x 9 cm mass in the hypogastric area that was noted once the patient was asleep and paralyzed. There was evidence of persistent pancreatitis in the abdomen with white plaques consistent with saponification of fat and a lot of edema with swelling in the area of the mass. The weather significant findings were noted. Description of Procedure Patient was taken to surgery and induced into general anesthesia. The abdomen was prepped and draped. On palpating the abdomen, the mass noted above was appreciated. It was about half way between the umbilicus and the xiphoid. It was in the midline. I measured the dimensions of the mass and those findings are as above. We then went ahead with laparoscopic cholecystectomy. Trocars were placed in the usual fashion using 0.5% Marcaine. [employer] optical trocars were used as well. The area of the mass seemed to be covered by omentum which was edematous and had whitish areas consistent with saponification. We were able to proceed and expose the gallbladder. The omentum was edematous and there was generalized edema in the abdomen consistent with previous pancreatitis. The gallbladder was decompressed with a laparoscopic aspirator. Multiple stones were noted in the gallbladder. The cholecystotomy was closed with a Vicryl endoloop. The gallbladder was then retracted anterosuperiorly. The cholecystohepatic triangle was exposed. Traction was placed on the infundibulum and dissection was carried out. There was a lot of edema in the cholecystohepatic triangle as well. The cystic duct and cystic artery were carefully dissected. Once each was delineated, we then dissected the gallbladder from the liver at its lower 3rd. Critical view was achieved. The cystic duct and cystic artery were then securely clipped and divided. We dissected the gallbladder off the liver. This went well with minimal bleeding. Eventually the gallbladder was freed completely from the liver. The gallbladder fossa was made hemostatic with the cautery. The gallbladder was placed in an Endo-Catch bag and retrieved through the 10 11 epigastric trocar site. We had to somewhat dilated bluntly the epigastric trocar site to accommodate the gallbladder. We then replaced the epigastric trocar and reviewed the right upper quadrant. The gallbladder fossa was irrigated and suctioned. This was carried out repeatedly and all looked good. There was no evidence of bleeding or bile leakage. We then evacuated CO2 and removed the trocar sleeves. Skin wounds were closed with subcuticular 4-0 Monocryl skin suture. The wounds were dressed with Exofin surgical adhesive. The patient was awakened and taken to recovery in good condition. Sponge needle counts were correct x2. Estimated Blood Loss -5.0 Urine Output 50 Drains No P
--- NOTE | 2021-06-08 15:27 | SUR.PHASEI ---
1518: Simple mask removed.
--- NOTE | 2021-06-08 16:22 | PC.NURSE ---
Patient returned from OR.
[2021-06-08] MEDS: MORPHINE SULFATE PCA (*CRX) 30 MG/30 ML SYR IV CONT (16:37)
[2021-06-08] MEDS: ESCITALOPRAM OXALATE 10 MG TABLET PO (22:59)
[2021-06-09] VITALS (12 sets, daily range): BP systolic 140–177; BP diastolic 79–95; PULSE 79–98; RESP 14–20; TEMP 36.3–37.2; O2SAT 91–98
[2021-06-09] MEDS: KCL 40 MEQ/D5/0.9% SOD CHL 1,000 ML 100 ML IV CONT (02:24)
[2021-06-09 06:23] LABS: Hematocrit 35.6 % (42.0-52.0); Hemoglobin 11.8 g/dL (14.0-18.0); Mean Corpuscular HGB Conc 33.1 g/dl (32-36); Mean Corpuscular Hemoglobin 30.3 pg (26-34); Mean Corpuscular Volume 91.5 fl (80-100); Platelet Count Result 241 k/mm3 (150-375); Red Blood Count 3.89 M/mm3 (4.6-6.20); Red Cell Distribution Width 13.5 % (11.5-14.5); White Blood Count 12.9 K/mm3 (4.5-10.0)
[2021-06-09 06:49] LABS: Alanine Aminotransferase 146 U/L (4-50); Albumin Level 3.4 g/dL (3.5-5.1); Alkaline Phosphatase 132 U/L (38-126); Anion Gap 8 mmol/L (8-16); Aspartate Amino Transferase 87 U/L (17-59); Bilirubin,Total 1.4 mg/dL (0.2-1.3); Blood Urea Nitrogen 11 mg/dL (9-20); Calcium 8.4 mg/dL (8.4-10.2); Carbon Dioxide 26 mmol/L (22-30); Chloride 101 mmol/L (98-107); Estimated CRCL calculation 99 ml/min; Estimated Glomerular Filt Rate > 60; Glucose 114 mg/dL (65-110); Lipase 44 U/L (23-300); Potassium 3.6 mmol/L (3.4-5.0); Sodium 135 mmol/L (137-145)
--- NOTE | 2021-06-09 07:06 | WPDGIPROGNO ---
Progress Note: A&P Assessment and Plan (1) Pancreatitis: Qualifiers: Chronicity: acute Pancreatitis type: other Acute pancreatitis complication: no infection or necrosis Qualified Code(s): K85.80 - Other acute pancreatitis without necrosis or infection Code(s): K85.90 - Acute pancreatitis without necrosis or infection, unspecified Status: Acute Assessment and Plan: his amylase lipase are normal normal. At surgery however was noted to have a peripancreatic fluid collection. CT scan is being done today. It is too early to classify this as a pseudocyst. If there is any evidence of gas in the fluid collection we will treated as an infected fluid collection /infected necrosis. The ideal antibiotics would be Imipenum, or a quinolone in combination with metronidazole. (2) Cholelithiasis with chronic cholecystitis: Qualifiers: Cholelithiasis location: gallbladder Biliary obstruction: without biliary obstruction Qualified Code(s): K80.10 - Calculus of gallbladder with chronic cholecystitis without obstruction Code(s): K80.10 - Calculus of gallbladder with chronic cholecystitis without obstruction Status: Chronic Assessment and Plan: Cholecystectomy performed yesterday by Dr. moctezuma without incident. Subjective Date/time seen: 06/09/21 07:06 He felt weight yesterday morning but last evening began to have pain again in the upper abdomen. He feels tight. He states he actually was hungry yesterday morning prior to the cholecystectomy. Intraoperatively, it was noted that he had a fluid collection in the hypogastric area. I suspect this is peripancreatic fluid from pancreatitis. Review of Systems Review of Systems: All systems reviewed & are unremarkable except as noted in HPI and below Exam Const: General: cooperative, no acute distress, ill appearing and uncomfortable; No diaphoretic Orientation/consciousness: patient oriented x3 Other: uncomfortable because abdominal pain HENMT: General nose exam: Normal nares present Eyes: Sclera: sclerae normal Neck: Neck: supple Chest: Chest palpation & inspection: normal inspection of the chest and no tenderness Resp: Auscultation: clear to auscultation bilaterally Cardio: Rate: regular rate GI: Inspection: normal to inspection and distended GI Palp: Yes abdominal tenderness ( Generalized) Auscultation: normal bowel sounds Skin: General skin exam: normal color Neuro: General: patient oriented x3 Speech: normal speech Motor exam (neuro): Normal motor muscle tone present throughout Extrem: General: normal to inspection Psych: Mental Status: mental status grossly normal Objective Data Vital Signs Vital Signs: Vital Signs - 24 hr 06/08/21 08:00 06/08/21 09:00 06/08/21 10:14 Temperature Pulse Rate 84 Respiratory Rate 20 Blood Pressure Pulse Oximetry 97 97 95 06/08/21 10:30 06/08/21 13:41 06/08/21 15:03 Temperature 36.6 C 37.3 C 37.8 C H Pulse Rate 84 94 100 Respiratory Rate 18 18 18 Blood Pressure 154/84 H 160/91 H 119/86 Pulse Oximetry 97 96 98 06/08/21 15:15 06/08/21 15:30 06/08/21 15:45 Temperature 37.2 C Pulse Rate 94 91 82 Respiratory Rate 10 L 16 10 L Blood Pressure 134/83 136/83 157/92 H Pulse Oximetry 98 90 92 06/08/21 16:00 06/08/21 16:37 06/08/21 16:45 Temperature 36.8 C Pulse Rate 74 73 Respiratory Rate 18 16 16 Blood Pressure 154/85 H 140/85 Pulse Oximetry 96 98 95 06/08/21 17:00 06/08/21 17:30 06/08/21 17:43 Temperature 36.9 C 36.7 C Pulse Rate 74 77 Respiratory Rate 18 16 Blood Pressure 138/82 131/80 Pulse Oximetry 94 97 98 06/08/21 18:30 06/08/21 20:00 06/08/21 20:12 Temperature 36.8 C Pulse Rate 82 82 79 Respiratory Rate 18 18 Blood Pressure 137/90 Pulse Oximetry 97 97 93 06/08/21 22:00 06/08/21 23:00 06/09/21 02:59 Temperature 36.5 C Pulse Rate 72 Respiratory Rate 20 18 20 Blood Pressure 134/82 Pulse Oximetry
--- NOTE | 2021-06-09 07:30 | PC.NURSE ---
Per night RN, Palak Richmond, home medications/bottles were found in the patients bed. Palak stated that patient seemed to be acting more confused/out of it. She found 3 medication bottles at the bedside. Bottles were taken and put in secure bag in med room. Upon reviewing these, bottles were Naproxen, [place] 5/325 and an unlabeled RX bottle that appeared to be tums. These medications were locked in our safe.
[2021-06-09] MEDS: MORPHINE SULFATE PCA (*CRX) 30 MG/30 ML SYR IV CONT (08:41)
[2021-06-09] MEDS: hydrALAZINE HCL 25 MG TABLET PO ×3 (08:51→17:53)
[2021-06-09] MEDS: ENOXAPARIN 40 MG/0.4 ML SYRINGE SUB-Q (08:51)
[2021-06-09] MEDS: FAMOTIDINE 20 MG/2 ML VIAL IV PUSH ×2 (08:51→20:35)
[2021-06-09] MEDS: SIMETHICONE 80 MG TAB.CHEW PO ×4 (08:51→20:35)
--- NOTE | 2021-06-09 08:59 | WPDANESPN ---
Anes - Prog Note Post-Op Date/Time: 06/09/21 08:59 Cardiovascular status: normal Respiratory status: normal Airway patency: baseline Mental status: baseline Post-Op hydration status: normal Vital Signs: Last Vital Signs Temp 37.2 C 06/09/21 08:21 Pulse 98 06/09/21 08:21 Resp 16 06/09/21 08:41 BP 177/95 H 06/09/21 08:21 Pulse Ox 92 06/09/21 08:41 Pain Score (VAS): 2 I/O: Intake & Output 06/08/21 06/09/21 06/09/21 23:59 07:59 15:59 Intake Total 604 1869 7 Output Total 1000 Balance 604 869 7 Laboratory Tests 06/09/21 05:54 06/09/21 05:54 06/09/21 06/09/21 05:54 05:54 WBC 12.9 H RBC 3.89 L Hgb 11.8 L Hct 35.6 L MCV 91.5 MCH 30.3 MCHC 33.1 RDW 13.5 Plt Count 241 MPV 10.0 Sodium 135 L Potassium 3.6 Chloride 101 Carbon Dioxide 26 Anion Gap 8 BUN 11 Creatinine 0.80 Estim Creat Clear Calc 99 Estimated GFR > 60 Glucose 114 H Calcium 8.4 Total Bilirubin 1.4 H AST 87 H ALT 146 H Alkaline Phosphatase 132 H Total Protein 6.0 L Albumin 3.4 L Lipase 44 Post-procedural complaints: none Patient Feedback: Patient satisfied with anesthetic care.
[2021-06-09] MEDS: KCL 40 MEQ/D5/0.9% SOD CHL 1,000 ML 150 ML IV CONT (11:47)
--- NOTE | 2021-06-09 13:02 | PC.NURSE ---
Patient and patients are requesting transfer to outside facility, preferably [facility]. Placed call out to Dr. Gasca to notify, request more info regarding transfer.
--- NOTE | 2021-06-09 14:19 | PM.PNGS ---
Progress Note: A&P Assessment and Plan (1) Pancreatitis: Qualifiers: Chronicity: acute Pancreatitis type: other Acute pancreatitis complication: no infection or necrosis Qualified Code(s): K85.80 - Other acute pancreatitis without necrosis or infection Code(s): K85.90 - Acute pancreatitis without necrosis or infection, unspecified Status: Acute Assessment and Plan: persistent pancreatitis on CT and clinically despite having normal lipase and amylase and LFTs returning to essentially normal levels. Discussed with Dr. Espinoza and Jolanta Sterling PA-C, hospitalist. Will go ahead and make patient NPO except for sips of water and ice chips. Will start TPN per PICC line. He does seem to be making some progress but continues to have abdominal pain and really in inability to eat. On antibiotics per Dr. Espinoza. Discussed plans with patient and his . (2) Protein-calorie malnutrition, moderate: Code(s): E44.0 - Moderate protein-calorie malnutrition Status: Acute Assessment and Plan: Place PICC line and start TPN as above. (3) Cholelithiasis with chronic cholecystitis: Qualifiers: Cholelithiasis location: gallbladder Biliary obstruction: without biliary obstruction Qualified Code(s): K80.10 - Calculus of gallbladder with chronic cholecystitis without obstruction Code(s): K80.10 - Calculus of gallbladder with chronic cholecystitis without obstruction Status: Chronic Assessment and Plan: Laparoscopic cholecystectomy done yesterday. No evidence of complications or issues from that procedure. Subjective Subjective Date/Time Seen: 06/09/21 14:19 Post Op day: 1 Patient reports: still having pain and afebrile Interval history: patient is still having abdominal discomfort although he does admit he is up more and able to get around better than he was a couple of days ago. He has no appetite. He has not had any nausea or vomiting. He has not had any particular problems with the surgical incisions or right upper quadrant pain. Review of Systems Review of Systems: All systems reviewed & are unremarkable except as noted in HPI and below Constitutional: Constitutional: Reports anorexia, Denies chills, Reports fatigue, Denies fever(s), Reports lethargy and Reports poor appetite Cardiovascular: Cardiovascular: Denies chest pain, Denies diaphoresis, Denies dyspnea and Denies paroxysmal nocturnal dyspnea Respiratory: Respiratory: Denies chest congestion, Denies cough and Denies dyspnea Gastrointestinal: Gastrointestinal: Reports as per HPI, Reports abdominal pain, Denies heartburn, Denies nausea and Denies vomiting Integumentary/Breasts: Skin/Breast: Denies lesions and Denies rash Exam Const: General: cooperative, no acute distress, alert, awake, ill appearing and uncomfortable; No confusion Nutritional Appearance: overweight Orientation/consciousness: No confusion GI: Inspection: non-distended, incision ( All trocar sites dry and healing well) and obesity GI Palp: Yes Soft to palpation, Yes Tenderness to palpation present (GI), No Guarding due to palpation present (GI), Yes Palpable mass present ( hypogastric mass appreciated, tender) and No Rebound tenderness present Percussion: No Fluid wave present and No tympanic to percussion Neuro: General: patient oriented x3, no focal motor deficits and No confusion Extrem: General: no calf tenderness and no edema Psych: Affect: normal affect Insight: Good insight present (Psych) Judgement: Good judgement present (Psych) Objective Data Vital Signs Vital Signs: Vital Signs - 24 hr 06/08/21 15:03 06/08/21 15:15 06/08/21 15:30 Temperature 37.8 C H Pulse Rate 100 94 91 Respiratory Rate 18 10 L 16 Blood Pressure 119/86 134/83 136/83 Pulse Oximetry 98 98 90 06/08/21 15:45 06/08/21 16:00 06/08/21 16:37 Temperature 37.2 C Pulse Rate 82 74 Respiratory Rate 10 L 18 16 Blood Pressure 157/92 H 154/
[2021-06-09 14:53] LABS: Basophils Absolute Auto 0.1 K/mm3 (0.0-0.1); Basophils Percent Auto 0.7 % (0.2-1.2); Eosinophils Percent Auto 0.3 % (0-4.4); Hematocrit 38.5 % (42.0-52.0); Hemoglobin 12.7 g/dL (14.0-18.0); Immature Granulocyte Absolute 0.27 K/mm3 (0.00-0.031); Immature Granulocyte Percent A 2.1 % (0-0.5); Lymphocytes Absolute Auto 0.55 K/mm3 (0.9-3.2); Lymphocytes Percent Auto 4.3 % (18.3-44.2); Mean Corpuscular Hemoglobin 30.8 pg (26-34); Mean Corpuscular Volume 93.2 fl (80-100); Mean Platelet Volume 9.8 fl (7.4-10.4); Monocytes Absolute Auto 1.1 K/mm3 (0.1-0.6); Monocytes Percent Auto 8.6 % (2.6-8.5); Neutrophils Absolute Auto 10.8 K/mm3 (1.3-6.7); Platelet Count Result 242 k/mm3 (150-375); Red Blood Count 4.13 M/mm3 (4.6-6.20); Red Cell Distribution Width 13.4 % (11.5-14.5); White Blood Count 12.9 K/mm3 (4.5-10.0)
--- NOTE | 2021-06-09 15:23 | PM.IMPN ---
Progress Note: A&P Assessment and Plan (1) Pancreatitis: Qualifiers: Acute pancreatitis complication: no infection or necrosis Chronicity: acute Pancreatitis type: other Qualified Code(s): K85.80 - Other acute pancreatitis without necrosis or infection Code(s): K85.90 - Acute pancreatitis without necrosis or infection, unspecified Status: Acute Assessment and Plan: Patient is a 50-year-old male smoker with a history of GERD, who presented emergency room from home with epigastric and right upper quadrant abdominal pain after eating a double cheeseburger and a baked potato wedges for dinner with associated nausea and diaphoresis. He reports similar symptoms over last 2 years which usually only last 30 minutes this time symptoms did not resolve and he came to the ER for further evaluation. In the emergency department, he was found to have elevated LFTs (total bilirubin 1.7, AST 1668, ALT 1462, alkaline phosphatase 127). A CT of the abdomen and pelvis showed cholelithiasis and trace amount of fluid between the liver and gallbladder with cholelithiasis noted on ultrasound without evidence of gallbladder wall thickening. He is feeling better after receiving morphine and pantoprazole in the emergency department. Patient was admitted to the hospital with a consult to GI who performed an ERCP on 06/03/21 which showed biliary stones and choledocholithiasis which was was removed. Right after his procedure his abdominal pain became significantly worse and repeat CT scan was done 06/04/21 showing Development of moderate peripancreatic, mesenteric inflammation, acute pancreatitis. Possible small amount of gastric cardial wall emphysema, could be from recent ERCP. No free intraperitoneal gas. Patient continued to have significant pain and he was started on a morphine STONEWORK TRACER pump Repeat CT scan was then performed on 06/06/2021 which showed Persistent acute interstitial pancreatitis with few small acute peripancreatic fluid collections but no necrosis or abscess. Interval increase in a still small amount of likely reactive ascites. Surgery decided to perform a lap cholecystectomy on 06/08/21 in the patient tolerated the procedure well but the surgeon did find a large 14 x 9 cm mass in the hypogastric area that was consistent with possible pseudocyst. Repeat CT scan completed on 06/09/2021 showing Combination of peripancreatic and perigastric fluid and inflammatory change related to pancreatitis likely accounting for the intraoperative abnormality described. Possible hypoattenuation in the body of the pancreas with surrounding fluid, which would be consistent with necrotizing pancreatitis with sterile acute necrotic collection. Sensitivity limited by the absence of intravenous contrast. Due to the patient's significant pain, pancreatitis, possible pseudocyst he would like to place the patient NPO except sips of water and ice chips, will start a PICC line with PPN Clindamax and continue pain control. GI evaluated the patient and started IV imipenem for possible infected necrotizing pancreatitis Labs are otherwise stable with normal lipase, down trending total bili, ALT, AST slightly elevated today most likely due to her lap bear Will continue monitoring the patient daily with improvement of his symptoms and appreciate GI and surgical input (2) Cholelithiasis with chronic cholecystitis: Qualifiers: Cholelithiasis location: gallbladder Biliary obstruction: without biliary obstruction Qualified Code(s): K80.10 - Calculus of gallbladder with chronic cholecystitis without obstruction Code(s): K80.10 - Calculus of gallbladder with chronic cholecystitis without obstruction Status: Chronic Assessment and Plan: See above under pancreatitis. (3) Transaminitis: Code(s): R74.01 - Elevation of levels of liver transaminase levels
[2021-06-09] MEDS: LIDOCAINE HCL 1% PF INJ 5 ML VIAL INFILTRATE (15:40)
[2021-06-09] MEDS: FAT EMULSIONS IV 20% 250 ML 20.83 ML IVPB (17:16)
[2021-06-09] MEDS: AMINO ACIDS 5%/D15W/E-LYTES/CA 2,000 ML with MULTIVITAMINS-12 INJ VIAL 1 2.5 ML, MULTIV... 40 ML IV CONT (17:16)
[2021-06-09 18:47] LABS: Alanine Aminotransferase 152 U/L (4-50); Albumin Level 3.3 g/dL (3.5-5.1); Alkaline Phosphatase 182 U/L (38-126); Anion Gap 8 mmol/L (8-16); Aspartate Amino Transferase 93 U/L (17-59); Bilirubin,Total 1.7 mg/dL (0.2-1.3); Blood Urea Nitrogen 8 mg/dL (9-20); Calcium 8.1 mg/dL (8.4-10.2); Carbon Dioxide 27 mmol/L (22-30); Chloride 97 mmol/L (98-107); Estimated CRCL calculation 98 ml/min; Estimated Glomerular Filt Rate > 60; Glucose 104 mg/dL (65-110); Magnesium 1.9 mg/dL (1.6-2.3); Potassium 3.5 mmol/L (3.4-5.0); Sodium 132 mmol/L (137-145)
[2021-06-09 18:59] LABS: Transferrin 159 mg/dL (206-381)
[2021-06-09 19:08] LABS: Glucose Point of Care 105 mg/dl (65-105)
[2021-06-09] MEDS: ESCITALOPRAM OXALATE 10 MG TABLET PO (20:34)
[2021-06-09] MEDS: CENTRAL LINE FLUSH 10 ML IV PUSH (20:35)
[2021-06-09] MEDS: ZOLPIDEM TARTRATE (*CRX) 5 MG TABLET 10 MG PO (20:39)
[2021-06-10] VITALS (7 sets, daily range): BP systolic 136–146; BP diastolic 71–87; PULSE 85–97; RESP 14–20; TEMP 36.7–37.4; O2SAT 94–97; BMI 34.1
[2021-06-10] MEDS: CENTRAL LINE FLUSH 10 ML IV PUSH ×3 (05:14→22:07)
[2021-06-10 06:23] LABS: Basophils Absolute Auto 0.1 K/mm3 (0.0-0.1); Basophils Percent Auto 0.8 % (0.2-1.2); Eosinophils Absolute Auto 0.1 K/mm3 (0-0.3); Eosinophils Percent Auto 0.6 % (0-4.4); Hematocrit 34.4 % (42.0-52.0); Hemoglobin 11.7 g/dL (14.0-18.0); Immature Granulocyte Absolute 0.57 K/mm3 (0.00-0.031); Immature Granulocyte Percent A 3.7 % (0-0.5); Lymphocytes Absolute Auto 1.07 K/mm3 (0.9-3.2); Lymphocytes Percent Auto 6.9 % (18.3-44.2); Mean Corpuscular Hemoglobin 31.2 pg (26-34); Mean Corpuscular Volume 91.7 fl (80-100); Mean Platelet Volume 9.9 fl (7.4-10.4); Monocytes Absolute Auto 1.2 K/mm3 (0.1-0.6); Neutrophils Absolute Auto 12.4 K/mm3 (1.3-6.7); Platelet Count Result 195 k/mm3 (150-375); Red Blood Count 3.75 M/mm3 (4.6-6.20); Red Cell Distribution Width 13.3 % (11.5-14.5); White Blood Count 15.5 K/mm3 (4.5-10.0)
[2021-06-10 06:40] LABS: Alanine Aminotransferase 136 U/L (4-50); Albumin Level 3.1 g/dL (3.5-5.1); Alkaline Phosphatase 150 U/L (38-126); Anion Gap 7 mmol/L (8-16); Aspartate Amino Transferase 86 U/L (17-59); Bilirubin,Total 1.6 mg/dL (0.2-1.3); Blood Urea Nitrogen 9 mg/dL (9-20); Carbon Dioxide 27 mmol/L (22-30); Chloride 98 mmol/L (98-107); Estimated CRCL calculation 111 ml/min; Estimated Glomerular Filt Rate > 60; Glucose 129 mg/dL (65-110); Lipase 79 U/L (23-300); Phosphorus 3.2 mg/dL (2.5-4.5); Potassium 3.2 mmol/L (3.4-5.0); Sodium 132 mmol/L (137-145)
[2021-06-10] MEDS: FAMOTIDINE 20 MG/2 ML VIAL IV PUSH ×2 (09:18→21:56)
[2021-06-10] MEDS: KCL 40 MEQ/WATER 100 ML 100 ML 25 ML IVPB (09:19)
[2021-06-10] MEDS: ENOXAPARIN 40 MG/0.4 ML SYRINGE SUB-Q (09:19)
[2021-06-10] MEDS: hydrALAZINE HCL 25 MG TABLET PO ×3 (09:19→17:42)
[2021-06-10] MEDS: SIMETHICONE 80 MG TAB.CHEW PO ×4 (09:19→21:56)
--- NOTE | 2021-06-10 09:21 | PM.IMPN ---
Progress Note: A&P Assessment and Plan (1) Pancreatitis: Qualifiers: Chronicity: acute Pancreatitis type: other Acute pancreatitis complication: no infection or necrosis Qualified Code(s): K85.80 - Other acute pancreatitis without necrosis or infection Code(s): K85.90 - Acute pancreatitis without necrosis or infection, unspecified Status: Acute Assessment and Plan: Patient is a 50-year-old male smoker with a history of GERD, who presented emergency room from home with epigastric and right upper quadrant abdominal pain after eating a double cheeseburger and a baked potato wedges for dinner with associated nausea and diaphoresis. He reports similar symptoms over last 2 years which usually only last 30 minutes this time symptoms did not resolve and he came to the ER for further evaluation. In the emergency department, he was found to have elevated LFTs (total bilirubin 1.7, AST 1668, ALT 1462, alkaline phosphatase 127). A CT of the abdomen and pelvis showed cholelithiasis and trace amount of fluid between the liver and gallbladder with cholelithiasis noted on ultrasound without evidence of gallbladder wall thickening. He is feeling better after receiving morphine and pantoprazole in the emergency department. Patient was admitted to the hospital with a consult to GI who performed an ERCP on 06/03/21 which showed biliary stones and choledocholithiasis which was was removed. Right after his procedure his abdominal pain became significantly worse and repeat CT scan was done 06/04/21 showing Development of moderate peripancreatic, mesenteric inflammation, acute pancreatitis. Possible small amount of gastric cardial wall emphysema, could be from recent ERCP. No free intraperitoneal gas. Patient continued to have significant pain and he was started on a morphine VENDING MACHINE ASSEMBLER pump Repeat CT scan was then performed on 06/06/2021 which showed Persistent acute interstitial pancreatitis with few small acute peripancreatic fluid collections but no necrosis or abscess. Interval increase in a still small amount of likely reactive ascites. Surgery decided to perform a lap cholecystectomy on 06/08/21 in the patient tolerated the procedure well but the surgeon did find a large 14 x 9 cm mass in the hypogastric area that was consistent with possible pseudocyst. Repeat CT scan completed on 06/09/2021 showing Combination of peripancreatic and perigastric fluid and inflammatory change related to pancreatitis likely accounting for the intraoperative abnormality described. Possible hypoattenuation in the body of the pancreas with surrounding fluid, which would be consistent with necrotizing pancreatitis with sterile acute necrotic collection. Sensitivity limited by the absence of intravenous contrast. Due to the patient's significant pain, pancreatitis, possible pseudocyst he would like to place the patient NPO except sips of water and ice chips, will start a PICC line with PPN Clindamax and continue pain control. GI evaluated the patient and started IV imipenem #2 for possible infected necrotizing pancreatitis Labs: Leukocytosis at 15,500,H&H stable. LFTs trending down, normal lipase. 06/10/21: Feeling better today. Will continue monitoring the patient daily with improvement of his symptoms and appreciate GI and surgical input (2) Cholelithiasis with chronic cholecystitis: Qualifiers: Cholelithiasis location: gallbladder Biliary obstruction: without biliary obstruction Qualified Code(s): K80.10 - Calculus of gallbladder with chronic cholecystitis without obstruction Code(s): K80.10 - Calculus of gallbladder with chronic cholecystitis without obstruction Status: Chronic Assessment and Plan: See above under pancreatitis. (3) Transaminitis: Code(s): R74.01 - Elevation of levels of liver transaminase levels Status: Acute
--- NOTE | 2021-06-10 11:07 | WPDGIPROGNO ---
Progress Note: A&P Assessment and Plan (1) Pancreatitis: Qualifiers: Chronicity: acute Pancreatitis type: other Acute pancreatitis complication: no infection or necrosis Qualified Code(s): K85.80 - Other acute pancreatitis without necrosis or infection Code(s): K85.90 - Acute pancreatitis without necrosis or infection, unspecified Status: Acute Assessment and Plan: because of the suspicion of possible pancreatic necrosis in addition to the fluid collection. I have started I am Imipenum. I discussed with him the fluid collection and that is not something we can drain percutaneously because it would result in pancreatic ascites. I explained that these usually resolve on there own and after 6 weeks or so if it remains as a pseudocyst it could then be drained (2) Protein-calorie malnutrition, moderate: Code(s): E44.0 - Moderate protein-calorie malnutrition Status: Acute Assessment and Plan: this was discussed with Dr. novak and Jolanta Sterling yesterday. TPN has been started to provide protein, calories and maintain electrolyte balance. Today potassium and calcium are somewhat low but of course this will be corrected with adjustments to her TPN (3) Cholelithiasis with chronic cholecystitis: Qualifiers: Cholelithiasis location: gallbladder Biliary obstruction: without biliary obstruction Qualified Code(s): K80.10 - Calculus of gallbladder with chronic cholecystitis without obstruction Code(s): K80.10 - Calculus of gallbladder with chronic cholecystitis without obstruction Status: Chronic Assessment and Plan: this issue has been resolved with cholecystectomy and ERCP (4) Abdominal pain: Code(s): R10.9 - Unspecified abdominal pain Status: Acute Assessment and Plan: he states that his pain is much better. He has used the RELAY TESTER HELPER pump only a few times this morning. Subjective Date/time seen: 06/10/21 11:07 Dr. novak and hospitalist and I discussed yesterday his prolonged period of no feeding and decided he would be best served with TPN to provide proteins and calorie Repletion. Repeat CT scan completed on 06/09/2021 showing Combination of peripancreatic and perigastric fluid and inflammatory change related to pancreatitis likely accounting for the intraoperative abnormality described. Possible hypoattenuation in the body of the pancreas with surrounding fluid, which would be consistent with necrotizing pancreatitis with sterile acute necrotic collection. Sensitivity limited by the absence of intravenous contrast. Due to the patient's significant pain, pancreatitis, possible pseudocyst he would like to place the patient NPO except sips of water and ice chips, will start a PICC line with PPN Clindamax and continue pain control. today he states his pain is better. He is only use RELAY TESTER HELPER pump a few times. He still does not feel hungry. Review of Systems Review of Systems: All systems reviewed & are unremarkable except as noted in HPI and below Exam Const: General: no acute distress, alert and uncomfortable; No diaphoretic Orientation/consciousness: patient oriented x3 Other: uncomfortable because abdominal pain HENMT: General nose exam: Normal nares present Eyes: Sclera: sclerae normal Neck: Neck: supple Chest: Chest palpation & inspection: normal inspection of the chest and no tenderness Resp: Auscultation: clear to auscultation bilaterally Cardio: Rate: regular rate GI: Inspection: normal to inspection, no abdominal wall ecchymosis and distended GI Palp: Yes abdominal tenderness ( Tender throughout upper abdomen) Auscultation: normal bowel sounds Skin: General skin exam: normal color Neuro: General: patient oriented x3 Speech: normal speech Motor exam (neuro): Normal motor muscle tone present throughout Extrem: General: normal to inspection Psych: Mental Status: mental status grossly normal Objective Data Vital Signs V
[2021-06-10 11:13] LABS: Glucose Point of Care 122 mg/dl (65-105)
--- NOTE | 2021-06-10 11:42 | PM.PNGS ---
Progress Note: A&P Assessment and Plan (1) Pancreatitis: Qualifiers: Chronicity: acute Pancreatitis type: other Acute pancreatitis complication: no infection or necrosis Qualified Code(s): K85.80 - Other acute pancreatitis without necrosis or infection Code(s): K85.90 - Acute pancreatitis without necrosis or infection, unspecified Status: Acute Assessment and Plan: Persistent pancreatitis clinically and as evidenced by the CT scan. Lipase remains normal. LFTs trending towards normal. Abdominal pain starting to improve today. Will continue the SERGEANT OF OFFICERS and possibly try switching to PRN IV analgesics tomorrow if he continues to improve. Will keep him NPO except for sips and ice again today. Continue TPN. Encouraged patient to try increasing his activity as tolerated and ambulating today if his abdominal pain remains controlled. (2) Protein-calorie malnutrition, moderate: Code(s): E44.0 - Moderate protein-calorie malnutrition Status: Acute Assessment and Plan: Continue TPN through PICC line for nutrition. Potassium 3.2 on this morning's labs. Start oral potassium BID. Monitor labs. (3) Cholelithiasis with chronic cholecystitis: Qualifiers: Cholelithiasis location: gallbladder Biliary obstruction: without biliary obstruction Qualified Code(s): K80.10 - Calculus of gallbladder with chronic cholecystitis without obstruction Code(s): K80.10 - Calculus of gallbladder with chronic cholecystitis without obstruction Status: Chronic Assessment and Plan: No evidence of surgical complications from the laparoscopic cholecystectomy. Incisions healing well. Additional Plan I have discussed the patient's case and plan of care with Dr. Gasca. Subjective Subjective Date/Time Seen: 06/10/21 11:42 Patient reports: no new complaints, feels better, pain is less, voiding w/o difficulty, flatus, no bowel movement and afebrile Interval history: Patient seen and examined this morning. He reports feeling better overall today. He reports his abdominal pain has improved some compared to yesterday. He denies any nausea or vomiting. No other complaints at this time. He has gotten up to the chair this morning and walked around his room already. He is starting to feel like he has some appetite. Review of Systems Review of Systems: All systems reviewed & are unremarkable except as noted in HPI and below Constitutional: Constitutional: Reports as per HPI, Reports no additional constitutional complaints, Denies chills and Denies fever(s) Cardiovascular: Cardiovascular: Reports no additional cardiovascular complaints, Denies chest pain and Denies leg edema Respiratory: Respiratory: Reports no additional respiratory complaints, Denies cough and Denies dyspnea Gastrointestinal: Gastrointestinal: Reports as per HPI, Reports no additional gastrointestinal complaints, Reports abdominal pain (Epigastric and left upper quadrant, no right upper quadrant pain), Reports bloating, Denies nausea and Denies vomiting Exam Const: General: comfortable, no acute distress, alert and awake Orientation/consciousness: patient oriented x3 GI: Inspection: non-distended and incision (Abdominal incisions clean and dry, healing well) GI Palp: Yes Soft to palpation, Yes Tenderness to palpation present (GI) (mid to left upper abdomen), No Guarding due to palpation present (GI), No Hernia present, Yes Palpable mass present (mid upper abdominal mass palpable and tender) and No Rebound tenderness present Percussion: No tympanic to percussion Auscultation: Hypoactive bowel sounds present Skin: General skin exam: normal color Neuro: General: moves all extremities and no focal motor deficits Extrem: General: no clubbing, cyanosis or edema and no calf tenderness Psych: Mental Status: mental status grossly normal Insight: Good insight present (Psych) Judgement: Good judgement present (Psych) Objective Data Vital
[2021-06-10 13:03] LABS: Triglycerides 117 mg/dL (<150)
[2021-06-10] MEDS: AMINO ACIDS 5%/D15W/E-LYTES/CA 2,000 ML with MULTIVITAMINS-12 INJ VIAL 1 2.5 ML, MULTIV... 40 ML IV CONT (15:25)
[2021-06-10] MEDS: FAT EMULSIONS IV 20% 250 ML 20.83 ML IVPB (15:26)
[2021-06-10 16:21] LABS: Glucose Point of Care 106 mg/dl (65-105)
[2021-06-10] MEDS: MORPHINE SULFATE (*CRX) 2 MG/ML INJ IV PUSH ×2 (17:42→22:04)
[2021-06-10] MEDS: POTASSIUM CHLORIDE 20 MEQ TABLET.ER 40 MEQ PO (17:42)
[2021-06-10] MEDS: ZOLPIDEM TARTRATE (*CRX) 5 MG TABLET 10 MG PO (18:47)
[2021-06-10] MEDS: ESCITALOPRAM OXALATE 10 MG TABLET PO (21:55)
[2021-06-11] MEDS: MORPHINE SULFATE (*CRX) 2 MG/ML INJ IV PUSH ×2 (00:25→18:14)
[2021-06-11 04:21] LABS: Glucose Point of Care 117 mg/dl (65-105)
[2021-06-11 05:15] VITALS: BP 147/86; PULSE 83; RESP 16; TEMP 36.8; O2SAT 97
[2021-06-11] MEDS: CENTRAL LINE FLUSH 10 ML IV PUSH ×3 (05:53→21:30)
[2021-06-11 06:06] LABS: Basophils Absolute Auto 0.1 K/mm3 (0.0-0.1); Basophils Percent Auto 0.8 % (0.2-1.2); Eosinophils Absolute Auto 0.1 K/mm3 (0-0.3); Eosinophils Percent Auto 0.8 % (0-4.4); Hematocrit 37.3 % (42.0-52.0); Hemoglobin 12.3 g/dL (14.0-18.0); Immature Granulocyte Absolute 0.81 K/mm3 (0.00-0.031); Immature Granulocyte Percent A 4.8 % (0-0.5); Lymphocytes Absolute Auto 1.05 K/mm3 (0.9-3.2); Lymphocytes Percent Auto 6.2 % (18.3-44.2); Mean Corpuscular Hemoglobin 30.7 pg (26-34); Monocytes Percent Auto 6.1 % (2.6-8.5); Neutrophils Absolute Auto 13.8 K/mm3 (1.3-6.7); Neutrophils Percent Auto 81.3 % (45.5-73.1); Platelet Count Result 249 k/mm3 (150-375); Red Blood Count 4.01 M/mm3 (4.6-6.20); Red Cell Distribution Width 13.4 % (11.5-14.5)
[2021-06-11 06:20] LABS: Alanine Aminotransferase 118 U/L (4-50); Albumin Level 3.3 g/dL (3.5-5.1); Alkaline Phosphatase 154 U/L (38-126); Anion Gap 8 mmol/L (8-16); Aspartate Amino Transferase 68 U/L (17-59); Bilirubin,Total 1.3 mg/dL (0.2-1.3); Blood Urea Nitrogen 11 mg/dL (9-20); Calcium 8.3 mg/dL (8.4-10.2); Carbon Dioxide 26 mmol/L (22-30); Chloride 99 mmol/L (98-107); Estimated CRCL calculation 111 ml/min; Estimated Glomerular Filt Rate > 60; Glucose 125 mg/dL (65-110); Potassium 3.7 mmol/L (3.4-5.0); Sodium 133 mmol/L (137-145)
[2021-06-11] MEDS: SIMETHICONE 80 MG TAB.CHEW PO ×4 (08:52→20:51)
[2021-06-11] MEDS: POTASSIUM CHLORIDE 20 MEQ TABLET.ER 40 MEQ PO ×2 (08:52→17:14)
[2021-06-11] MEDS: hydrALAZINE HCL 25 MG TABLET PO ×3 (08:52→17:14)
[2021-06-11] MEDS: ENOXAPARIN 40 MG/0.4 ML SYRINGE SUB-Q (08:53)
[2021-06-11] MEDS: FAMOTIDINE 20 MG/2 ML VIAL IV PUSH ×2 (08:54→20:51)
[2021-06-11] MEDS: IBUPROFEN IV 800 MG/200 ML 800 MG/200 ML BAG 400 MG IVPB ×2 (08:56→18:16)
--- NOTE | 2021-06-11 10:11 | PM.IMPN ---
Progress Note: A&P Assessment and Plan (1) Pancreatitis: Qualifiers: Acute pancreatitis complication: no infection or necrosis Chronicity: acute Pancreatitis type: other Qualified Code(s): K85.80 - Other acute pancreatitis without necrosis or infection Code(s): K85.90 - Acute pancreatitis without necrosis or infection, unspecified Status: Acute Assessment and Plan: Patient is a 50-year-old male smoker with a history of GERD, who presented emergency room from home with epigastric and right upper quadrant abdominal pain after eating a double cheeseburger and a baked potato wedges for dinner with associated nausea and diaphoresis. He reports similar symptoms over last 2 years which usually only last 30 minutes this time symptoms did not resolve and he came to the ER for further evaluation. In the emergency department, he was found to have elevated LFTs (total bilirubin 1.7, AST 1668, ALT 1462, alkaline phosphatase 127). A CT of the abdomen and pelvis showed cholelithiasis and trace amount of fluid between the liver and gallbladder with cholelithiasis noted on ultrasound without evidence of gallbladder wall thickening. He is feeling better after receiving morphine and pantoprazole in the emergency department. Patient was admitted to the hospital with a consult to GI who performed an ERCP on 06/03/21 which showed biliary stones and choledocholithiasis which was was removed. Right after his procedure his abdominal pain became significantly worse and repeat CT scan was done 06/04/21 showing Development of moderate peripancreatic, mesenteric inflammation, acute pancreatitis. Possible small amount of gastric cardial wall emphysema, could be from recent ERCP. No free intraperitoneal gas. Patient continued to have significant pain and he was started on a morphine OTHER SPATIAL SCIENTIST pump Repeat CT scan was then performed on 06/06/2021 which showed Persistent acute interstitial pancreatitis with few small acute peripancreatic fluid collections but no necrosis or abscess. Interval increase in a still small amount of likely reactive ascites. Surgery decided to perform a lap cholecystectomy on 06/08/21 in the patient tolerated the procedure well but the surgeon did find a large 14 x 9 cm mass in the hypogastric area that was consistent with possible pseudocyst. Repeat CT scan completed on 06/09/2021 showing Combination of peripancreatic and perigastric fluid and inflammatory change related to pancreatitis likely accounting for the intraoperative abnormality described. Possible hypoattenuation in the body of the pancreas with surrounding fluid, which would be consistent with necrotizing pancreatitis with sterile acute necrotic collection. Sensitivity limited by the absence of intravenous contrast. Discussed with surgery, patient feeling better but will continue: NPO except sips of water and ice chips, continue PICC line with PPN Clindamax and continue pain control. GI evaluated the patient and started IV imipenem #3 for possible infected necrotizing pancreatitis Labs: Leukocytosis at 17,000,H&H stable. LFTs trending down, normal lipase. 06/11/21: Feeling better today. Will continue monitoring the patient daily with improvement of his symptoms and appreciate GI and surgical input (2) Cholelithiasis with chronic cholecystitis: Qualifiers: Biliary obstruction: without biliary obstruction Cholelithiasis location: gallbladder Qualified Code(s): K80.10 - Calculus of gallbladder with chronic cholecystitis without obstruction Code(s): K80.10 - Calculus of gallbladder with chronic cholecystitis without obstruction Status: Inactive Assessment and Plan: See above under pancreatitis. (3) Transaminitis: Code(s): R74.01 - Elevation of levels of liver transaminase levels Status: Deleted Assessment and Plan: LFTs improvin
[2021-06-11 11:34] LABS: Glucose Point of Care 110 mg/dl (65-105)
--- NOTE | 2021-06-11 11:39 | PCNFU ---
Nutrition Follow-Up Complete: Altered GI function as related to Pancreatitis as evidenced by TPN Goal: Meet estimated nutritional needs Patient is progressing towards goal. We will continue current goal. Pt current nutrition is NPO/TPN. Last recorded weight is 90.2 kg, no new weigh to report. Bowel Motility:+BM reported Labs Reviewed:Glu 125, Na 133, Alb 33.3 Meds Noted:Clinimix 5/15 at 40 ml/hr, 20% Lipid Emulsion, Mylicon, KCL tablet, Lexapro, Pepcid, Morphine Sulfate Skin:WNL Additional Notes: Spoke with patient today, he remains on TPN providing 1182 kcals/48 gms protein. States today doesn't feel as hungry. WBC 17.0 today. Recommending increasing patient's TPN to 50 ml/hr today with goal rate at 60 ml/hr to better meet caloric needs. Monitoring: Will monitor every Monday and Monday.
--- NOTE | 2021-06-11 11:41 | PM.PNGS ---
Progress Note: A&P Assessment and Plan (1) Leukocytosis: Code(s): D72.829 - Elevated white blood cell count, unspecified Status: Acute Assessment and Plan: white blood cell count increasing last 5 days, particularly last 3 days. Concern obviously exists that this may be related to his pancreatitis. However, patient has no fever and abdominal pain is much improved. Last CT scan was 2 days ago and did not show a pseudocyst or pancreatic necrosis. Continue to monitor for now. If keeps increasing, would repeat CT scan with IV contrast. (2) Pancreatitis: Qualifiers: Chronicity: acute Pancreatitis type: other Acute pancreatitis complication: no infection or necrosis Qualified Code(s): K85.80 - Other acute pancreatitis without necrosis or infection Code(s): K85.90 - Acute pancreatitis without necrosis or infection, unspecified Status: Acute Assessment and Plan: See above. Still has inflammatory hypogastric mass that is tender. Continue bowel rest again today as he is showing much improvement since that started. Consider trying liquids tomorrow if he continues to improve. If symptoms recur, he would need to go back to bowel rest. (3) Protein-calorie malnutrition, moderate: Code(s): E44.0 - Moderate protein-calorie malnutrition Status: Acute Assessment and Plan: Continue TPN as before. (4) Status post laparoscopic cholecystectomy: Code(s): Z90.49 - Acquired absence of other specified parts of digestive tract Status: Chronic Assessment and Plan: Wounds healing well. Pathology showed chronic cholecystitis with gallstones. Surgery performed 06/08/2021 Subjective Subjective Date/Time Seen: 06/11/21 11:41 Patient reports: feels better, pain is less, bowel movement and afebrile Interval history: Feels much better today. Just finished taking a shower. Pleased with his improvement. Review of Systems Review of Systems: All systems reviewed & are unremarkable except as noted in HPI and below Constitutional: Constitutional: Denies chills and Denies fever(s) Cardiovascular: Cardiovascular: Denies chest pain, Denies diaphoresis, Denies dyspnea and Denies paroxysmal nocturnal dyspnea Respiratory: Respiratory: Denies chest congestion, Denies cough and Denies dyspnea Gastrointestinal: Gastrointestinal: Reports abdominal pain ( Nearly gone, dye range tender), Denies heartburn, Denies nausea and Denies vomiting Integumentary/Breasts: Skin/Breast: Denies lesions and Denies rash Exam Const: General: comfortable and no acute distress; No confusion Orientation/consciousness: patient oriented x3 and No confusion GI: Inspection: incision ( trocar sites dry and healing well) and no visible herniation GI Palp: Yes Soft to palpation, No Guarding due to palpation present (GI), Yes Palpable mass present ( hypogastric mass as before, tender) and No Rebound tenderness present Auscultation: normal bowel sounds Neuro: General: patient oriented x3, no focal motor deficits and No confusion Extrem: General: no calf tenderness and no edema Psych: Affect: normal affect Insight: Good insight present (Psych) Judgement: Good judgement present (Psych) Objective Data Vital Signs Vital Signs: Vital Signs - 24 hr 06/10/21 12:45 06/10/21 14:05 06/10/21 21:58 Temperature 36.7 C 37.4 C Pulse Rate 85 97 Respiratory Rate 14 16 20 Blood Pressure 136/71 138/86 Pulse Oximetry 94 96 97 06/10/21 22:33 06/11/21 05:15 Temperature 36.8 C Pulse Rate 83 Respiratory Rate 16 Blood Pressure 147/86 H Pulse Oximetry 96 97 Intake/Output Intake/Output: Intake & Output 06/08/21 06/09/21 06/10/21 06/11/21 23:59 23:59 23:59 23:59 Intake Total 1906 3618 3068 450 Output Total 900 1525 900 900 Balance 1006 2093 2168 -450 Meds/Results Medications: Active Medications Generic Name Dose Route Start Last Admin Trade Name Freq PRN Reason Stop Dose
[2021-06-11 14:00] VITALS: BP 134/74; PULSE 64; RESP 16; TEMP 36.4; O2SAT 96
--- NOTE | 2021-06-11 14:16 | WPDGIPROGNO ---
Progress Note: A&P Assessment and Plan (1) Pancreatitis: Qualifiers: Chronicity: acute Pancreatitis type: other Acute pancreatitis complication: no infection or necrosis Qualified Code(s): K85.80 - Other acute pancreatitis without necrosis or infection Code(s): K85.90 - Acute pancreatitis without necrosis or infection, unspecified Status: Acute Assessment and Plan: because of the suspicion of possible pancreatic necrosis in addition to the fluid collection. I have started I am Imipenum. I discussed with him the fluid collection and that is not something we can drain percutaneously because it would result in pancreatic ascites. I explained that these usually resolve on there own and after 6 weeks or so if it remains as a pseudocyst it could then be drained. Although his white count is increasing, he remains afebrile. I suspect that this may be partly if not mostly due to inflammation. We have him on antibiotics because of some suspected pancreatic necrosis (2) Protein-calorie malnutrition, moderate: Code(s): E44.0 - Moderate protein-calorie malnutrition Status: Acute Assessment and Plan: this was discussed with Dr. novak and Jolanta Sterling yesterday. TPN has been started to provide protein, calories and maintain electrolyte balance. Today potassium and calcium are somewhat low but of course this will be corrected with adjustments to her TPN (3) Cholelithiasis with chronic cholecystitis: Qualifiers: Cholelithiasis location: gallbladder Biliary obstruction: without biliary obstruction Qualified Code(s): K80.10 - Calculus of gallbladder with chronic cholecystitis without obstruction Code(s): K80.10 - Calculus of gallbladder with chronic cholecystitis without obstruction Status: Inactive Assessment and Plan: this issue has been resolved with cholecystectomy and ERCP (4) Abdominal pain: Code(s): R10.9 - Unspecified abdominal pain Status: Deleted Assessment and Plan: today he has much less pain than he has last few days. He is doing well without the CASING IN [employer] SETTER pump. Subjective Date/time seen: 06/11/21 14:16 Interval history: Date of service 06/11/2021: Pt reports improved abd pain today, passing gas and having a few bowel movements. He is able to sit up today in bed. His abdomen is less distended. He has also been up moving around more without any issues. Denies fevers, chills, chest pain, shortness of breath, nausea, vomiting, leg swelling, calf pain, or any other symptoms at this time. this morning he had a shower. He states that he has been doing well without the pain pump for the last 16 hours. He is actually feeling hungry and here to try liquids tomorrow Review of Systems Review of Systems: All systems reviewed & are unremarkable except as noted in HPI and below Exam Const: General: no acute distress, alert and uncomfortable; No diaphoretic Orientation/consciousness: patient oriented x3 Other: uncomfortable because abdominal pain HENMT: General nose exam: Normal nares present Eyes: Sclera: sclerae normal Neck: Neck: supple Chest: Chest palpation & inspection: normal inspection of the chest and no tenderness Resp: Auscultation: clear to auscultation bilaterally Cardio: Rate: regular rate GI: Inspection: normal to inspection, no abdominal wall ecchymosis and distended GI Palp: Yes Palpable mass present ( there is a discrete palpable tender mass in the epigastric area 15 cm) Auscultation: normal bowel sounds Skin: General skin exam: normal color Neuro: General: patient oriented x3 Speech: normal speech Motor exam (neuro): Normal motor muscle tone present throughout Extrem: General: normal to inspection Psych: Mental Status: mental status grossly normal Objective Data Vital Signs Vital Signs: Vital Signs - 24 hr 06/10/21 21:58 06/10/21 22:33 06/11/21 05:15 Temperature 37.4 C 36.8 C Pulse Rate
[2021-06-11] MEDS: FAT EMULSIONS IV 20% 250 ML 20.83 ML IVPB (15:12)
[2021-06-11] MEDS: AMINO ACIDS 5%/D15W/E-LYTES/CA 2,000 ML with MULTIVITAMINS-12 INJ VIAL 1 2.5 ML, MULTIV... 40 ML IV CONT (15:12)
[2021-06-11] MEDS: ESCITALOPRAM OXALATE 10 MG TABLET PO (20:51)
[2021-06-11] MEDS: ZOLPIDEM TARTRATE (*CRX) 5 MG TABLET 10 MG PO (20:51)
[2021-06-11 20:56] VITALS: BP 127/79; PULSE 83; RESP 16; TEMP 36.4; O2SAT 97
[2021-06-11 23:09] LABS: Glucose Point of Care 106 mg/dl (65-105)
[2021-06-12] MEDS: MORPHINE SULFATE (*CRX) 2 MG/ML INJ IV PUSH ×2 (00:30→03:44)
[2021-06-12 03:53] LABS: Glucose Point of Care 112 mg/dl (65-105)
[2021-06-12] MEDS: MORPHINE SULFATE (*CRX) 4 MG/ML INJ IV PUSH (04:51)
[2021-06-12] MEDS: CENTRAL LINE FLUSH 10 ML IV PUSH ×3 (05:20→21:00)
[2021-06-12 05:25] VITALS: BP 127/82; PULSE 84; RESP 16; TEMP 36.4; O2SAT 93
[2021-06-12 05:54] LABS: Basophils Absolute Auto 0.1 K/mm3 (0.0-0.1); Basophils Percent Auto 0.7 % (0.2-1.2); Eosinophils Absolute Auto 0.1 K/mm3 (0-0.3); Eosinophils Percent Auto 0.9 % (0-4.4); Hematocrit 36.7 % (42.0-52.0); Hemoglobin 12.1 g/dL (14.0-18.0); Immature Granulocyte Absolute 0.69 K/mm3 (0.00-0.031); Lymphocytes Absolute Auto 0.95 K/mm3 (0.9-3.2); Lymphocytes Percent Auto 6.9 % (18.3-44.2); Mean Corpuscular Volume 90.8 fl (80-100); Mean Platelet Volume 10.2 fl (7.4-10.4); Monocytes Absolute Auto 0.9 K/mm3 (0.1-0.6); Monocytes Percent Auto 6.2 % (2.6-8.5); Neutrophils Absolute Auto 11.1 K/mm3 (1.3-6.7); Neutrophils Percent Auto 80.3 % (45.5-73.1); Platelet Count Result 272 k/mm3 (150-375); Red Blood Count 4.04 M/mm3 (4.6-6.20); Red Cell Distribution Width 13.3 % (11.5-14.5); White Blood Count 13.8 K/mm3 (4.5-10.0)
[2021-06-12 06:04] LABS: Alanine Aminotransferase 129 U/L (4-50); Albumin Level 3.3 g/dL (3.5-5.1); Alkaline Phosphatase 181 U/L (38-126); Anion Gap 9 mmol/L (8-16); Aspartate Amino Transferase 99 U/L (17-59); Bilirubin,Total 1.2 mg/dL (0.2-1.3); Blood Urea Nitrogen 11 mg/dL (9-20); Calcium 8.4 mg/dL (8.4-10.2); Carbon Dioxide 25 mmol/L (22-30); Chloride 100 mmol/L (98-107); Estimated CRCL calculation 110 ml/min; Estimated Glomerular Filt Rate > 60; Glucose 116 mg/dL (65-110); Phosphorus 4.1 mg/dL (2.5-4.5); Potassium 4.2 mmol/L (3.4-5.0); Sodium 134 mmol/L (137-145)
[2021-06-12] MEDS: IBUPROFEN IV 800 MG/200 ML 800 MG/200 ML BAG 400 MG IVPB ×3 (06:40→23:14)
[2021-06-12] MEDS: FAMOTIDINE 20 MG/2 ML VIAL IV PUSH ×2 (08:31→21:00)
[2021-06-12] MEDS: hydrALAZINE HCL 25 MG TABLET PO ×3 (08:31→18:02)
[2021-06-12] MEDS: SIMETHICONE 80 MG TAB.CHEW PO ×4 (08:31→21:00)
[2021-06-12] MEDS: POTASSIUM CHLORIDE 20 MEQ TABLET.ER 40 MEQ PO ×2 (08:31→18:02)
[2021-06-12] MEDS: ENOXAPARIN 40 MG/0.4 ML SYRINGE SUB-Q (08:31)
--- NOTE | 2021-06-12 09:58 | PM.IMPN ---
Progress Note: A&P Assessment and Plan (1) Pancreatitis: Qualifiers: Acute pancreatitis complication: no infection or necrosis Chronicity: acute Pancreatitis type: other Qualified Code(s): K85.80 - Other acute pancreatitis without necrosis or infection Code(s): K85.90 - Acute pancreatitis without necrosis or infection, unspecified Status: Acute Assessment and Plan: Patient is a 50-year-old male smoker with a history of GERD, who presented emergency room from home with epigastric and right upper quadrant abdominal pain after eating a double cheeseburger and a baked potato wedges for dinner with associated nausea and diaphoresis. He reports similar symptoms over last 2 years which usually only last 30 minutes this time symptoms did not resolve and he came to the ER for further evaluation. In the emergency department, he was found to have elevated LFTs (total bilirubin 1.7, AST 1668, ALT 1462, alkaline phosphatase 127). A CT of the abdomen and pelvis showed cholelithiasis and trace amount of fluid between the liver and gallbladder with cholelithiasis noted on ultrasound without evidence of gallbladder wall thickening. He is feeling better after receiving morphine and pantoprazole in the emergency department. Patient was admitted to the hospital with a consult to GI who performed an ERCP on 06/03/21 which showed biliary stones and choledocholithiasis which was was removed. Right after his procedure his abdominal pain became significantly worse and repeat CT scan was done 06/04/21 showing Development of moderate peripancreatic, mesenteric inflammation, acute pancreatitis. Possible small amount of gastric cardial wall emphysema, could be from recent ERCP. No free intraperitoneal gas. Patient continued to have significant pain and he was started on a morphine TRUSS PULLER HELPER pump Repeat CT scan was then performed on 06/06/2021 which showed Persistent acute interstitial pancreatitis with few small acute peripancreatic fluid collections but no necrosis or abscess. Interval increase in a still small amount of likely reactive ascites. Surgery decided to perform a lap cholecystectomy on 06/08/21 in the patient tolerated the procedure well but the surgeon did find a large 14 x 9 cm mass in the hypogastric area that was consistent with possible pseudocyst. Repeat CT scan completed on 06/09/2021 showing Combination of peripancreatic and perigastric fluid and inflammatory change related to pancreatitis likely accounting for the intraoperative abnormality described. Possible hypoattenuation in the body of the pancreas with surrounding fluid, which would be consistent with necrotizing pancreatitis with sterile acute necrotic collection. Sensitivity limited by the absence of intravenous contrast. Discussed with surgery, patient feeling better but will continue: NPO except sips of water and ice chips, continue PICC line with PPN Clindamax and continue pain control. GI evaluated the patient and started IV imipenem #4 for possible infected necrotizing pancreatitis Labs: Leukocytosis improved to 13,800,H&H stable. LFTs went up slightly, lipase pending 06/12/21: Feeling better today. Will continue monitoring the patient daily with improvement of his symptoms and appreciate GI and surgical input (2) Cholelithiasis with chronic cholecystitis: Qualifiers: Biliary obstruction: without biliary obstruction Cholelithiasis location: gallbladder Qualified Code(s): K80.10 - Calculus of gallbladder with chronic cholecystitis without obstruction Code(s): K80.10 - Calculus of gallbladder with chronic cholecystitis without obstruction Status: Inactive Assessment and Plan: See above under pancreatitis. (3) Transaminitis: Code(s): R74.01 - Elevation of levels of liver transaminase levels Status: Deleted Assessment and Pl
[2021-06-12] MEDS: CENTRAL LINE FLUSH 20 ML IV PUSH (11:25)
[2021-06-12 11:46] LABS: Lipase 551 U/L (23-300)
[2021-06-12 11:47] LABS: Glucose Point of Care 114 mg/dl (65-105)
[2021-06-12 12:11] LABS: Triglycerides 92 mg/dL (<150)
[2021-06-12 12:34] VITALS: BP 111/75
[2021-06-12 15:00] VITALS: BP 127/81; PULSE 74; RESP 16; TEMP 36.6; O2SAT 96
[2021-06-12] MEDS: FAT EMULSIONS IV 20% 250 ML 20.83 ML IVPB (15:43)
[2021-06-12] MEDS: AMINO ACIDS 5%/D15W/E-LYTES/CA 2,000 ML with MULTIVITAMINS-12 INJ VIAL 1 2.5 ML, MULTIV... 40 ML IV CONT (15:43)
[2021-06-12 18:38] LABS: Glucose Point of Care 101 mg/dl (65-105)
--- NOTE | 2021-06-12 20:17 | PM.PNGS ---
Progress Note: A&P Assessment and Plan (1) Leukocytosis: Code(s): D72.829 - Elevated white blood cell count, unspecified Status: Acute Assessment and Plan: The white blood cell count had been increasing the 5 days until today when it went down t0 13.500. Concern exists that this may be related to his pancreatitis. The patient has no fever and abdominal pain has remained improved. Last CT scan was 3 days ago and did not show a pseudocyst or pancreatic necrosis. Continue to monitor for now. If keeps begins increasing again would repeat CT scan with IV contrast. (2) Pancreatitis: Qualifiers: Acute pancreatitis complication: no infection or necrosis Chronicity: acute Pancreatitis type: other Qualified Code(s): K85.80 - Other acute pancreatitis without necrosis or infection Code(s): K85.90 - Acute pancreatitis without necrosis or infection, unspecified Status: Acute Assessment and Plan: See above. Still has inflammatory hypogastric mass that is mildly tender. Continue bowel rest again today as he is showing much improvement since that started. Also we checked to lipase and it is still elevated. Patient is hungry which is a good sign that would rather be safe than sorry so will doff on liquids another 24 hours. If the lipase is improved tomorrow will begin clear liquids most likely. If symptoms recur, he would need to go back to bowel rest. (3) Status post laparoscopic cholecystectomy: Code(s): Z90.49 - Acquired absence of other specified parts of digestive tract Status: Chronic Assessment and Plan: Wounds healing well. Pathology showed chronic cholecystitis with gallstones. Surgery performed 06/08/2021 Additional Plan I have discussed the patient's case and plan of care with hospitalist team. Subjective Subjective Date/Time Seen: 06/12/21 17:17 Patient lying in bed when I entered the room. States pain is better than yesterday. He is hungry. However, explained to him that we checked a lipase and it is still somewhat elevated. Because we know from his surgery and the recent CT scan that he has some significant pancreatitis will still hold off advancing his diet now. Continue PPN. Repeat lipase in a.m. and if better or the same consider starting liquids po. Review of Systems Review of Systems: All systems reviewed & are unremarkable except as noted in HPI and below Exam HENMT: Head: normocephalic and atraumatic Ears: hearing grossly normal bilaterally and external ears normal General nose exam: Normal external nose present, no nasal discharge noted and no epistaxis Face and sinus: normal facial exam, face symmetric, no tenderness and dry mucous membranes Mouth: Yes Normal oral and palatal mucosa present and No tongue abnormal Eyes: Conjunctivae: conjunctivae normal Sclera: sclerae normal Pupils: Equal, round and reactive pupils present EOM: EOMs intact bilaterally Neck: Neck: no lymphadenopathy, nontender and No submandibular swelling Thyroid: thyroid normal and nontender Lymphatic: lymphadenopathy not noted Resp: Effort & Inspection: normal respiratory effort, no audible wheezes, no cough and no pursed lip breathing Auscultation: clear to auscultation bilaterally Skin: General skin exam: normal color, no induration and other (no palpable nodules) Lesions: no lesions Rashes: no rashes Nails: no clubbing and no pitting Neuro: General: patient oriented x3, moves all extremities, no focal motor deficits and No confusion Cranial nerves: Yes Equal, round and reactive pupils present, Yes facial symmetry and Yes Midline tongue present Motor exam (neuro): No tremor noted, Normal motor muscle tone present throughout and Other motor observations present (Upper and lower motor strength strong and symmetric) Sensory Exam: No Sensory deficit (Neuro) Psych: Appearance: well kempt Mental Status: mental status grossly normal Speech and movement: Clear spee
[2021-06-12] MEDS: ESCITALOPRAM OXALATE 10 MG TABLET PO (21:00)
[2021-06-12] MEDS: ZOLPIDEM TARTRATE (*CRX) 5 MG TABLET 10 MG PO (21:43)
[2021-06-12 22:00] VITALS: BP 121/79; PULSE 76; RESP 16; TEMP 36.6; O2SAT 98
[2021-06-12 23:15] LABS: Glucose Point of Care 107 mg/dl (65-105)
[2021-06-13 05:15] VITALS: BP 124/86; PULSE 73; RESP 14; TEMP 36.1; O2SAT 98
[2021-06-13] MEDS: IBUPROFEN IV 800 MG/200 ML 800 MG/200 ML BAG 400 MG IVPB ×3 (06:16→20:53)
[2021-06-13 06:35] LABS: Alanine Aminotransferase 126 U/L (4-50); Albumin Level 3.5 g/dL (3.5-5.1); Alkaline Phosphatase 171 U/L (38-126); Anion Gap 6 mmol/L (8-16); Aspartate Amino Transferase 87 U/L (17-59); Bilirubin,Total 0.9 mg/dL (0.2-1.3); Blood Urea Nitrogen 12 mg/dL (9-20); Calcium 8.3 mg/dL (8.4-10.2); Carbon Dioxide 27 mmol/L (22-30); Chloride 97 mmol/L (98-107); Estimated CRCL calculation 110 ml/min; Estimated Glomerular Filt Rate > 60; Glucose 118 mg/dL (65-110); Hematocrit 37.4 % (42.0-52.0); Hemoglobin 12.3 g/dL (14.0-18.0); Lipase 811 U/L (23-300); Mean Corpuscular HGB Conc 32.9 g/dl (32-36); Mean Corpuscular Hemoglobin 30.4 pg (26-34); Mean Corpuscular Volume 92.6 fl (80-100); Mean Platelet Volume 10.3 fl (7.4-10.4); Phosphorus 4.3 mg/dL (2.5-4.5); Platelet Count Result 275 k/mm3 (150-375); Potassium 4.3 mmol/L (3.4-5.0); Red Blood Count 4.04 M/mm3 (4.6-6.20); Red Cell Distribution Width 13.4 % (11.5-14.5); Sodium 130 mmol/L (137-145); White Blood Count 10.7 K/mm3 (4.5-10.0)
[2021-06-13] MEDS: CENTRAL LINE FLUSH 10 ML IV PUSH ×4 (06:52→21:00)
[2021-06-13 07:21] LABS: Glucose Point of Care 132 mg/dl (65-105)
--- NOTE | 2021-06-13 08:50 | PM.PNGS ---
Progress Note: A&P Assessment and Plan (1) Status post laparoscopic cholecystectomy: Code(s): Z90.49 - Acquired absence of other specified parts of digestive tract Status: Chronic Assessment and Plan: Gradually improving postop day 5. His main hold back has been upper abdominal pain and pancreatitis. Today his lipase is slightly up but his white count is down and he is feeling okay with less pain. Therefore I will allow and try clear liquids for the next 24 hours and see how he is tomorrow morning. Repeat lipase and CBC in a.m. on 06/14 (2) Leukocytosis: Onset Date: ~06/2021 Code(s): D72.829 - Elevated white blood cell count, unspecified Status: Acute Assessment and Plan: this is been improving last 2 days. No fevers. (3) Pancreatitis: Onset Date: ~06/2021 Qualifiers: Chronicity: acute Pancreatitis type: other Acute pancreatitis complication: no infection or necrosis Qualified Code(s): K85.80 - Other acute pancreatitis without necrosis or infection Code(s): K85.90 - Acute pancreatitis without necrosis or infection, unspecified Status: Acute Assessment and Plan: Patient presented with this most likely stimulated by common bile duct stone. However because he has significant inflammation of the pancreas with a mass we have been cautious postoperatively. His white count is coming down but his lipase is slightly up Sumeet slight him try some clear liquids today as he is hungry and has had decreasing pain. Subjective Subjective Date/Time Seen: 06/13/21 08:50 Post Op day: 5 (Status post lap bear) Patient reports: no new complaints, feels better and still having pain ( rated at 1 or 2 ( took only IV ibuprofen)) Interval history: patient lying comfortably in his bed on his side when I entered the room. He states he had several bowel movements yesterday. He is not nauseated. He is slightly hungry. Recently took some IV ibuprofen for pain level of 2/10. Review of Systems Review of Systems: All systems reviewed & are unremarkable except as noted in HPI and below ENT: Denies headache(s) Cardiovascular: Cardiovascular: Reports no additional cardiovascular complaints, Denies chest pain, Denies diaphoresis, Denies leg edema, Denies dyspnea and Denies paroxysmal nocturnal dyspnea Respiratory: Respiratory: Reports no additional respiratory complaints, Denies chest congestion, Denies cough and Denies dyspnea Integumentary/Breasts: Skin/Breast: Denies lesions and Denies rash Neurologic: Reports as per HPI, Denies confusion, Denies headache(s), Denies Sensory deficit (Neuro) and Reports weakness Psychiatric: Psychiatric: Reports abnormal sleep pattern, Denies confusion and Reports difficulty concentrating Endocrine: Endocrine: Reports fatigue Exam HENMT: Head: normocephalic and atraumatic Ears: hearing grossly normal bilaterally and external ears normal General nose exam: Normal external nose present, no nasal discharge noted and no epistaxis Face and sinus: normal facial exam, face symmetric, no tenderness and dry mucous membranes Mouth: Yes Normal oral and palatal mucosa present and No tongue abnormal Eyes: Conjunctivae: conjunctivae normal Sclera: sclerae normal Pupils: Equal, round and reactive pupils present EOM: EOMs intact bilaterally Neck: Neck: no lymphadenopathy, nontender and No submandibular swelling Thyroid: thyroid normal and nontender Lymphatic: lymphadenopathy not noted Chest: Chest palpation & inspection: mass and no tenderness Resp: Effort & Inspection: normal respiratory effort, no audible wheezes, no cough and no pursed lip breathing Auscultation: clear to auscultation bilaterally Cardio: Rate: regular rate Rhythm: regular rhythm Heart sounds: no gallops, no murmurs and no rubs GI: Inspection: normal to inspection, non-distended, incision ( trocar sites dry and healing well), obesity, no scars and no visible herniation
[2021-06-13] MEDS: FAMOTIDINE 20 MG/2 ML VIAL IV PUSH ×2 (08:56→20:53)
[2021-06-13] MEDS: SIMETHICONE 80 MG TAB.CHEW PO ×4 (08:56→20:53)
[2021-06-13] MEDS: ENOXAPARIN 40 MG/0.4 ML SYRINGE SUB-Q (08:56)
[2021-06-13] MEDS: POTASSIUM CHLORIDE 20 MEQ TABLET.ER 40 MEQ PO ×2 (08:56→17:13)
[2021-06-13] MEDS: hydrALAZINE HCL 25 MG TABLET PO ×3 (08:56→17:13)
[2021-06-13] MEDS: SODIUM CHLORIDE 500 MG TABLET PO ×2 (09:49→17:13)
--- NOTE | 2021-06-13 10:04 | WPDGIPROGNO ---
Progress Note: A&P Assessment and Plan (1) Pancreatitis: Qualifiers: Chronicity: acute Pancreatitis type: other Acute pancreatitis complication: no infection or necrosis Qualified Code(s): K85.80 - Other acute pancreatitis without necrosis or infection Code(s): K85.90 - Acute pancreatitis without necrosis or infection, unspecified Status: Acute Assessment and Plan: because of the suspicion of possible pancreatic necrosis in addition to the fluid collection. I have started I am Imipenum. I discussed with him the fluid collection and that is not something we can drain percutaneously because it would result in pancreatic ascites. I explained that these usually resolve on there own and after 6 weeks or so if it remains as a pseudocyst it could then be drained. Although his white count is increasing, he remains afebrile. I suspect that this may be partly if not mostly due to inflammation. We have him on antibiotics because of some suspected pancreatic necrosis. 06/14 Today however white blood count is lower. We will repeat CT scan with contrast tomorrow. Likely his peripancreatic fluid will coalesce into a pancreatic pseudocyst which we would then then follow of course for several weeks. (2) Protein-calorie malnutrition, moderate: Code(s): E44.0 - Moderate protein-calorie malnutrition Status: Acute Assessment and Plan: he remains on TPN. It is time to begin oral feedings. Early refeeding in acute pancreatitis actually has been shown to be preferable to complete gut rest. If he tolerates clear liquids today then will advance him to full tomorrow. (3) Cholelithiasis with chronic cholecystitis: Qualifiers: Cholelithiasis location: gallbladder Biliary obstruction: without biliary obstruction Qualified Code(s): K80.10 - Calculus of gallbladder with chronic cholecystitis without obstruction Code(s): K80.10 - Calculus of gallbladder with chronic cholecystitis without obstruction Status: Inactive Assessment and Plan: this issue has been resolved with cholecystectomy and ERCP (4) Abdominal pain: Code(s): R10.9 - Unspecified abdominal pain Status: Deleted Assessment and Plan: today he has much less pain than he has last few days. 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 He is no longer needing narcotics. He has been up, moving about without any significant increase in pain Subjective Date/time seen: 06/13/21 10:04 Interval history: Date of service 06/12/2021: Pt reports increased abd pain last night after taking PO Potassium pills and needed Morphine injection to help with his pain that increased to about 6/10. He is still passing gas and having bowel movements. He is feeling better today without any pain. His abdomen is less distended. He has also been up moving around more without any issues. Denies fevers, chills, chest pain, shortness of breath, nausea, vomiting, leg swelling, calf pain, or any other symptoms at this time. 06/14 he is pain free today. He did have an ibuprofen for some discomfort. He is still hungry and is eager to begin eating. He denies nausea. His bowel movements are small and still somewhat loose Review of Systems Review of Systems: ROS unobtainable: Yes other (He denies any new complaints of other organ systems) Exam Const: General: no acute distress, alert and uncomfortable; No diaphoretic Orientation/consciousness: patient oriented x3 Other: uncomfortable because abdominal pain HENMT: General nose exam: Normal nares present Eyes: Sclera: sclerae normal Neck: Neck: supple Chest: Chest palpation & inspection: normal inspection of the chest and no tenderness Resp: Auscultation: clear to auscultation bilaterally Cardio: Rate: regular rate GI: Inspection: normal to inspection, no abdominal wall ecchymosis and distended GI Palp: Yes Palpable mass present ( hypogastric mass persists. Less te
--- NOTE | 2021-06-13 11:31 | PM.IMPN ---
Progress Note: A&P Assessment and Plan (1) Pancreatitis: Qualifiers: Acute pancreatitis complication: no infection or necrosis Chronicity: acute Pancreatitis type: other Qualified Code(s): K85.80 - Other acute pancreatitis without necrosis or infection Code(s): K85.90 - Acute pancreatitis without necrosis or infection, unspecified Status: Acute Assessment and Plan: Patient is a 50-year-old male smoker with a history of GERD, who presented emergency room from home with epigastric and right upper quadrant abdominal pain after eating a double cheeseburger and a baked potato wedges for dinner with associated nausea and diaphoresis. He reports similar symptoms over last 2 years which usually only last 30 minutes this time symptoms did not resolve and he came to the ER for further evaluation. In the emergency department, he was found to have elevated LFTs (total bilirubin 1.7, AST 1668, ALT 1462, alkaline phosphatase 127). A CT of the abdomen and pelvis showed cholelithiasis and trace amount of fluid between the liver and gallbladder with cholelithiasis noted on ultrasound without evidence of gallbladder wall thickening. He is feeling better after receiving morphine and pantoprazole in the emergency department. Patient was admitted to the hospital with a consult to GI who performed an ERCP on 06/03/21 which showed biliary stones and choledocholithiasis which was was removed. Right after his procedure his abdominal pain became significantly worse and repeat CT scan was done 06/04/21 showing Development of moderate peripancreatic, mesenteric inflammation, acute pancreatitis. Possible small amount of gastric cardial wall emphysema, could be from recent ERCP. No free intraperitoneal gas. Patient continued to have significant pain and he was started on a morphine PUT IN BEAT ADJUSTER pump Repeat CT scan was then performed on 06/06/2021 which showed Persistent acute interstitial pancreatitis with few small acute peripancreatic fluid collections but no necrosis or abscess. Interval increase in a still small amount of likely reactive ascites. Surgery decided to perform a lap cholecystectomy on 06/08/21 in the patient tolerated the procedure well but the surgeon did find a large 14 x 9 cm mass in the hypogastric area that was consistent with possible pseudocyst. Repeat CT scan completed on 06/09/2021 showing Combination of peripancreatic and perigastric fluid and inflammatory change related to pancreatitis likely accounting for the intraoperative abnormality described. Possible hypoattenuation in the body of the pancreas with surrounding fluid, which would be consistent with necrotizing pancreatitis with sterile acute necrotic collection. Sensitivity limited by the absence of intravenous contrast. Discussed with surgery who started a clear liquid diet which the patient is tolerating well at this time. They did recommend possible full liquid diet advancement tomorrow if you still tolerated well. GI evaluated the patient and started IV imipenem #5 for possible infected necrotizing pancreatitis . GI ordered for a repeat CT abdomen with contrast for tomorrow to further evaluate his healing. Labs: Leukocytosis improved to 10,700,H&H stable. LFTs came down slightly, lipase was 400 yesterday, and 500 today, but the patient's symptoms are improving. Will continue monitoring the patient daily with improvement of his symptoms and appreciate GI and surgical input (2) Cholelithiasis with chronic cholecystitis: Qualifiers: Biliary obstruction: without biliary obstruction Cholelithiasis location: gallbladder Qualified Code(s): K80.10 - Calculus of gallbladder with chronic cholecystitis without obstruction Code(s): K80.10 - Calculus of gallbladder with chronic cholecystitis without obstruction Status: Inactive Assessment and Plan: See above under pancreatitis.
[2021-06-13 12:25] VITALS: BP 117/73; PULSE 81; O2SAT 95
[2021-06-13 12:35] LABS: Glucose Point of Care 114 mg/dl (65-105)
[2021-06-13 14:20] VITALS: BP 125/79; PULSE 76; RESP 14; TEMP 36.3; O2SAT 97
[2021-06-13] MEDS: AMINO ACIDS 5%/D15W/E-LYTES/CA 2,000 ML with MULTIVITAMINS-12 INJ VIAL 1 2.5 ML, MULTIV... 40 ML IV CONT (15:05)
[2021-06-13] MEDS: FAT EMULSIONS IV 20% 250 ML 20.83 ML IVPB (15:05)
[2021-06-13 19:13] LABS: Glucose Point of Care 110 mg/dl (65-105)
[2021-06-13 20:00] VITALS: PULSE 69; RESP 20; O2SAT 98
[2021-06-13] MEDS: ESCITALOPRAM OXALATE 10 MG TABLET PO (20:53)
[2021-06-13] MEDS: ZOLPIDEM TARTRATE (*CRX) 5 MG TABLET 10 MG PO (20:53)
[2021-06-13 21:30] LABS: Glucose Point of Care 100 mg/dl (65-105)
[2021-06-13 22:00] VITALS: BP 129/81; PULSE 69; RESP 20; TEMP 36.3; O2SAT 98
[2021-06-14 00:10] LABS: Glucose Point of Care 109 mg/dl (65-105)
[2021-06-14] MEDS: CENTRAL LINE FLUSH 10 ML IV PUSH ×3 (05:08→20:32)
[2021-06-14 06:00] VITALS: BP 128/76; PULSE 65; RESP 18; TEMP 36.1; O2SAT 96
[2021-06-14 06:28] LABS: Glucose Point of Care 111 mg/dl (65-105)
[2021-06-14] MEDS: POTASSIUM CHLORIDE 20 MEQ TABLET.ER 40 MEQ PO (08:32)
[2021-06-14] MEDS: SIMETHICONE 80 MG TAB.CHEW PO ×4 (08:32→20:31)
[2021-06-14] MEDS: ENOXAPARIN 40 MG/0.4 ML SYRINGE SUB-Q (08:32)
[2021-06-14] MEDS: FAMOTIDINE 20 MG/2 ML VIAL IV PUSH ×2 (08:32→20:31)
[2021-06-14] MEDS: LIPASE/AMYLASE/PROTEASE 12,000 UNITS CAP 2 CAP PO ×3 (08:32→17:24)
[2021-06-14] MEDS: hydrALAZINE HCL 25 MG TABLET PO ×3 (08:32→17:24)
[2021-06-14] MEDS: SODIUM CHLORIDE 500 MG TABLET PO ×2 (08:33→17:24)
[2021-06-14] MEDS: IBUPROFEN IV 800 MG/200 ML 800 MG/200 ML BAG 400 MG IVPB (08:58)
[2021-06-14 09:03] LABS: Hematocrit 41.4 % (42.0-52.0); Hemoglobin 13.6 g/dL (14.0-18.0); Mean Corpuscular HGB Conc 32.9 g/dl (32-36); Mean Corpuscular Hemoglobin 30.3 pg (26-34); Mean Corpuscular Volume 92.2 fl (80-100); Mean Platelet Volume 10.4 fl (7.4-10.4); Platelet Count Result 368 k/mm3 (150-375); Red Blood Count 4.49 M/mm3 (4.6-6.20); Red Cell Distribution Width 13.1 % (11.5-14.5); White Blood Count 11.3 K/mm3 (4.5-10.0)
--- NOTE | 2021-06-14 10:03 | PM.IMPN ---
Progress Note: A&P Assessment and Plan (1) Pancreatitis: Onset Date: ~06/2021 Qualifiers: Chronicity: acute Pancreatitis type: other Acute pancreatitis complication: no infection or necrosis Qualified Code(s): K85.80 - Other acute pancreatitis without necrosis or infection Code(s): K85.90 - Acute pancreatitis without necrosis or infection, unspecified Status: Acute Assessment and Plan: Patient is a 50-year-old male smoker with a history of GERD, who presented emergency room from home with epigastric and right upper quadrant abdominal pain after eating a double cheeseburger and a baked potato wedges for dinner with associated nausea and diaphoresis. He reports similar symptoms over last 2 years which usually only last 30 minutes this time symptoms did not resolve and he came to the ER for further evaluation. In the emergency department, he was found to have elevated LFTs (total bilirubin 1.7, AST 1668, ALT 1462, alkaline phosphatase 127). A CT of the abdomen and pelvis showed cholelithiasis and trace amount of fluid between the liver and gallbladder with cholelithiasis noted on ultrasound without evidence of gallbladder wall thickening. He is feeling better after receiving morphine and pantoprazole in the emergency department. Patient was admitted to the hospital with a consult to GI who performed an ERCP on 06/03/21 which showed biliary stones and choledocholithiasis which was was removed. Right after his procedure his abdominal pain became significantly worse and repeat CT scan was done 06/04/21 showing Development of moderate peripancreatic, mesenteric inflammation, acute pancreatitis. Possible small amount of gastric cardial wall emphysema, could be from recent ERCP. No free intraperitoneal gas. Patient continued to have significant pain and he was started on a morphine STAFF PSYCHIATRIST pump Repeat CT scan was then performed on 06/06/2021 which showed Persistent acute interstitial pancreatitis with few small acute peripancreatic fluid collections but no necrosis or abscess. Interval increase in a still small amount of likely reactive ascites. Surgery decided to perform a lap cholecystectomy on 06/08/21 in the patient tolerated the procedure well but the surgeon did find a large 14 x 9 cm mass in the hypogastric area that was consistent with possible pseudocyst. Repeat CT scan completed on 06/09/2021 showing Combination of peripancreatic and perigastric fluid and inflammatory change related to pancreatitis likely accounting for the intraoperative abnormality described. Possible hypoattenuation in the body of the pancreas with surrounding fluid, which would be consistent with necrotizing pancreatitis with sterile acute necrotic collection. Sensitivity limited by the absence of intravenous contrast. Discussed with surgery who advanced to a full liquid diet which the patient is tolerating well at this time. GI evaluated the patient and started IV imipenem #6 for possible infected necrotizing pancreatitis . GI ordered for a repeat CT abdomen with contrast today to further evaluate his healing. Labs: pending for today. Will continue monitoring the patient daily with improvement of his symptoms and appreciate GI and surgical input (2) Cholelithiasis with chronic cholecystitis: Qualifiers: Cholelithiasis location: gallbladder Biliary obstruction: without biliary obstruction Qualified Code(s): K80.10 - Calculus of gallbladder with chronic cholecystitis without obstruction Code(s): K80.10 - Calculus of gallbladder with chronic cholecystitis without obstruction Status: Inactive Assessment and Plan: See above under pancreatitis. (3) Transaminitis: Code(s): R74.01 - Elevation of levels of liver transaminase levels Status: Deleted Assessment and Plan: LFTs improving slowly Monitor w/ daily
[2021-06-14 10:12] LABS: Alanine Aminotransferase 123 U/L (4-50); Albumin Level 3.9 g/dL (3.5-5.1); Alkaline Phosphatase 174 U/L (38-126); Anion Gap 6 mmol/L (8-16); Aspartate Amino Transferase 76 U/L (17-59); Bilirubin,Total 0.9 mg/dL (0.2-1.3); Blood Urea Nitrogen 11 mg/dL (9-20); Carbon Dioxide 28 mmol/L (22-30); Chloride 97 mmol/L (98-107); Estimated CRCL calculation 108 ml/min; Estimated Glomerular Filt Rate > 60; Glucose 130 mg/dL (65-110); Lipase 823 U/L (23-300); Magnesium 2.3 mg/dL (1.6-2.3); Phosphorus 4.6 mg/dL (2.5-4.5); Potassium 4.9 mmol/L (3.4-5.0); Sodium 131 mmol/L (137-145)
[2021-06-14 10:15] LABS: Triglycerides 132 mg/dL (<150)
[2021-06-14 10:19] LABS: Transferrin 227 mg/dL (206-381)
[2021-06-14 10:30] LABS: Partial Thromboplastin Time 24.4 SECONDS (22.3-36.8); Prothrombin Time 12.9 Seconds (11.1-14.7)
[2021-06-14 11:54] LABS: Glucose Point of Care 125 mg/dl (65-105)
[2021-06-14 12:02] LABS: Band Neutrophils Percent 32 % (0-6); Eosinophils Absolute Manual 0.11 K/mm3 (0.02-0.5); Eosinophils Percent Manual 1 % (0-4); Lymphocytes Absolute Manual 0.79 K/mm3 (1.1-4.5); Metamyelocytes Percent 4 %; Monocytes Absolute Manual 1.13 K/mm3 (0.1-0.90); Monocytes Percent Manual 10 % (3-9); Myelocytes Percent 2 %; Neutrophils Absolute Manual 8.58 K/mm3 (1.3-6.7); Neutrophils Percent Manual 44 % (46-73); Total Cells Counted 100
[2021-06-14 12:04] LABS: Platelet Estimate Adequate (Adequate)
[2021-06-14 12:07] LABS: Stomatocytes 1+ (NORMAL)
[2021-06-14 14:00] VITALS: BP 125/79; PULSE 69; RESP 18; TEMP 36.5; O2SAT 99
--- NOTE | 2021-06-14 14:02 | PM.PNGS ---
Progress Note: A&P Assessment and Plan (1) Pancreatitis: Onset Date: ~06/2021 Qualifiers: Chronicity: acute Pancreatitis type: other Acute pancreatitis complication: no infection or necrosis Qualified Code(s): K85.80 - Other acute pancreatitis without necrosis or infection Code(s): K85.90 - Acute pancreatitis without necrosis or infection, unspecified Status: Acute Assessment and Plan: Lipase at 823 today but patient continues to clinically improve. Not having any abdominal pain today. GI advanced to full liquids. Will stop TPN/Clinimix later today if tolerating fulls. Repeat CT scan abd/pelvis today. Await results. (2) Leukocytosis: Onset Date: ~06/2021 Code(s): D72.829 - Elevated white blood cell count, unspecified Status: Acute Assessment and Plan: WBC down slightly over the weekend. Repeat CT scan today. Monitor. (3) Status post laparoscopic cholecystectomy: Code(s): Z90.49 - Acquired absence of other specified parts of digestive tract Status: Chronic Assessment and Plan: 06/08/[address] Gasca. Continues to improve post-operatively. Incisions healing well. Pathology noted. Additional Plan I have discussed the patient's case and plan of care with Dr. Gasca. Subjective Subjective Date/Time Seen: 06/14/21 09:42 Patient reports: no new complaints, feels better, pain is less, tolerating liquids well, flatus, bowel movement and afebrile Interval history: Patient seen and examined this morning. He reports feeling better today than yesterday with no abdominal pain at the time of my exam. He is tolerating clear liquids well without any issues. Still denies any nausea or vomiting. He feels comfortable and reports being able to sleep last night. No other complaints at this time. Review of Systems Review of Systems: All systems reviewed & are unremarkable except as noted in HPI and below Exam Const: General: comfortable, no acute distress, alert and awake Orientation/consciousness: patient oriented x3 Resp: Effort & Inspection: normal respiratory effort Auscultation: clear to auscultation bilaterally Cardio: Rate: regular rate Rhythm: regular rhythm GI: Inspection: non-distended and incision ( trocar sites dry and healing well) GI Palp: Yes Soft to palpation, Yes Tenderness to palpation present (GI) (only over upper abd mass), No Guarding due to palpation present (GI), Yes Palpable mass present (palpable firm mass in the mid upper abdomen) and No Rebound tenderness present Auscultation: normal bowel sounds Skin: General skin exam: normal color Neuro: General: moves all extremities and no focal motor deficits Extrem: General: normal to inspection and no calf tenderness Psych: Mental Status: mental status grossly normal Insight: Good insight present (Psych) Judgement: Good judgement present (Psych) Objective Data Vital Signs Vital Signs: Vital Signs - 24 hr 06/13/21 14:20 06/13/21 20:00 06/13/21 22:00 Temperature 97.4 F L 97.3 F L Pulse Rate 76 69 69 Respiratory Rate 14 20 20 Blood Pressure 125/79 129/81 Pulse Oximetry 97 98 98 06/14/21 06:00 Temperature 97.0 F L Pulse Rate 65 Respiratory Rate 18 Blood Pressure 128/76 Pulse Oximetry 96 Intake/Output Intake/Output: Intake & Output 06/11/21 06/12/21 06/13/21 06/14/21 23:59 23:59 23:59 23:59 Intake Total 3055 3255 2765 1440 Output Total 900 2925 2700 1000 Balance 2155 330 65 440 Meds/Results Medications: Active Medications Generic Name Dose Route Start Last Admin Trade Name Freq PRN Reason Stop Dose Admin Lipase/Protease/Amylase 2 cap 06/14/21 08:00 06/14/21 13:29 Lipase/Amylase/Protease 12,000 Units Cap PO 2 cap TIDWM DRAKE Administration Enoxaparin Sodium 40 mg 06/05/21 09:00 06/14/21 08:32 Enoxaparin 40 Mg/0.4 Ml Syringe SUB-Q 40 mg DAILY DRAKE Administration Escitalopram Oxalate 10 mg 06/08/21 22:1
--- NOTE | 2021-06-14 14:15 | WPDGIPROGNO ---
Progress Note: A&P Assessment and Plan (1) Pancreatitis: Onset Date: ~06/2021 Qualifiers: Chronicity: acute Pancreatitis type: other Acute pancreatitis complication: no infection or necrosis Qualified Code(s): K85.80 - Other acute pancreatitis without necrosis or infection Code(s): K85.90 - Acute pancreatitis without necrosis or infection, unspecified Status: Acute Assessment and Plan: because of the suspicion of possible pancreatic necrosis in addition to the fluid collection. I have started I am Imipenum. I discussed with him the fluid collection and that is not something we can drain percutaneously because it would result in pancreatic ascites. I explained that these usually resolve on there own and after 6 weeks or so if it remains as a pseudocyst it could then be drained. Although his white count is increasing, he remains afebrile. I suspect that this may be partly if not mostly due to inflammation. We have him on antibiotics because of some suspected pancreatic necrosis. 06/14 CT scan today shows evolution of the pancreatitis as expected. The fluid seems to be coalescing into a pseudocyst as expected. I explained him that we usually follow these for least 6 weeks before even thinking about draining it if it persists. The elevation of lipase is not surprising and may persist as long as he has a pseudocyst or peripancreatic and pancreatic inflammation. (2) Protein-calorie malnutrition, moderate: Code(s): E44.0 - Moderate protein-calorie malnutrition Status: Acute Assessment and Plan: he remains on TPN. It is time to begin oral feedings. Early refeeding in acute pancreatitis actually has been shown to be preferable to complete gut rest. If he tolerates clear liquids today then will advance him to full tomorrow. 06/14 he tolerated his putting and other full liquids today. I will try him on low-fat diet tomorrow. I explained him that he will need to be on low-fat diet for about 6 weeks or so while taking pancreatic enzyme supplements . I would hope we could wean him off TPN tomorrow with anticipation of discharge on Monday, assuming of course that he does well when we advance his diet. (3) Cholelithiasis with chronic cholecystitis: Qualifiers: Cholelithiasis location: gallbladder Biliary obstruction: without biliary obstruction Qualified Code(s): K80.10 - Calculus of gallbladder with chronic cholecystitis without obstruction Code(s): K80.10 - Calculus of gallbladder with chronic cholecystitis without obstruction Status: Inactive Assessment and Plan: this issue has been resolved with cholecystectomy and ERCP (4) Abdominal pain: Code(s): R10.9 - Unspecified abdominal pain Status: Deleted Assessment and Plan: today he has much less pain than he has last few days. He is doing well without the CHAR FILTER TANK TENDER HEAD pump. He is no longer needing narcotics. He has been up, moving about without any significant increase in pain Subjective Date/time seen: 06/14/21 14:15 Interval history: Date of service 06/14/2021: Patient reports feeling well at this time, taking a nap after eating breakfast. He is tolerating a full liquid diet without any worsening pain or symptoms. Still having some abdominal distention and tenderness to palpation, but improving. Still having bowel movements. Denies any fevers, chills, nausea, vomiting, chest pain, shortness of breath, cough, leg swelling, calf pain, or any other symptoms at this time. Exam Const: General: no acute distress, alert and uncomfortable; No diaphoretic Orientation/consciousness: patient oriented x3 Other: uncomfortable because abdominal pain HENMT: General nose exam: Normal nares present Eyes: Sclera: sclerae normal Neck: Neck: supple Chest: Chest palpation & inspection: normal inspection of the chest and no tenderness Resp: Auscultation: clear to auscultation bilaterally C
[2021-06-14 16:51] LABS: Glucose Point of Care 102 mg/dl (65-105)
[2021-06-14 20:00] VITALS: PULSE 69; RESP 18; O2SAT 99
[2021-06-14] MEDS: ZOLPIDEM TARTRATE (*CRX) 5 MG TABLET 10 MG PO (20:31)
[2021-06-14] MEDS: ESCITALOPRAM OXALATE 10 MG TABLET PO (20:31)
[2021-06-14 22:00] VITALS: BP 120/80; PULSE 80; RESP 17; TEMP 36.9; O2SAT 97
[2021-06-15] MEDS: CENTRAL LINE FLUSH 10 ML IV PUSH (05:10)
[2021-06-15 05:12] VITALS: BP 127/65; PULSE 65; RESP 16; TEMP 36.4; O2SAT 95
[2021-06-15 05:21] LABS: Hematocrit 39.6 % (42.0-52.0); Mean Corpuscular HGB Conc 32.8 g/dl (32-36); Mean Corpuscular Hemoglobin 30.4 pg (26-34); Mean Corpuscular Volume 92.7 fl (80-100); Mean Platelet Volume 10.1 fl (7.4-10.4); Platelet Count Result 372 k/mm3 (150-375); Red Blood Count 4.27 M/mm3 (4.6-6.20); Red Cell Distribution Width 13.2 % (11.5-14.5); White Blood Count 10.6 K/mm3 (4.5-10.0)
[2021-06-15 05:33] LABS: Alanine Aminotransferase 97 U/L (4-50); Albumin Level 3.5 g/dL (3.5-5.1); Alkaline Phosphatase 159 U/L (38-126); Anion Gap 10 mmol/L (8-16); Aspartate Amino Transferase 59 U/L (17-59); Bilirubin,Total 0.8 mg/dL (0.2-1.3); Blood Urea Nitrogen 12 mg/dL (9-20); Calcium 8.7 mg/dL (8.4-10.2); Carbon Dioxide 27 mmol/L (22-30); Chloride 97 mmol/L (98-107); Estimated CRCL calculation 86 ml/min; Estimated Glomerular Filt Rate > 60; Glucose 119 mg/dL (65-110); Lipase 763 U/L (23-300); Potassium 4.6 mmol/L (3.4-5.0); Sodium 134 mmol/L (137-145)
--- NOTE | 2021-06-15 07:24 | WPDGIPROGNO ---
Progress Note: A&P Assessment and Plan (1) Pancreatitis: Onset Date: ~06/2021 Qualifiers: Chronicity: acute Pancreatitis type: other Acute pancreatitis complication: no infection or necrosis Qualified Code(s): K85.80 - Other acute pancreatitis without necrosis or infection Code(s): K85.90 - Acute pancreatitis without necrosis or infection, unspecified Status: Acute Assessment and Plan: because of the suspicion of possible pancreatic necrosis in addition to the fluid collection. I have started I am Imipenum. I discussed with him the fluid collection and that is not something we can drain percutaneously because it would result in pancreatic ascites. I explained that these usually resolve on there own and after 6 weeks or so if it remains as a pseudocyst it could then be drained. Although his white count is increasing, he remains afebrile. I suspect that this may be partly if not mostly due to inflammation. We have him on antibiotics because of some suspected pancreatic necrosis. 06/14 CT scan today shows evolution of the pancreatitis as expected. The fluid seems to be coalescing into a pseudocyst as expected. I explained him that we usually follow these for least 6 weeks before even thinking about draining it if it persists. The elevation of lipase is not surprising and may persist as long as he has a pseudocyst or peripancreatic and pancreatic inflammation. 12-14 because his TPN was discontinued yesterday and is diet actually got started last night. I would think he can be discharged later today if tolerating feedings . I would like him to take 3 pancreatic enzyme capsules with each meal and 1 with each snack when discharged (2) Protein-calorie malnutrition, moderate: Code(s): E44.0 - Moderate protein-calorie malnutrition Status: Acute Assessment and Plan: he remains on TPN. It is time to begin oral feedings. Early refeeding in acute pancreatitis actually has been shown to be preferable to complete gut rest. If he tolerates clear liquids today then will advance him to full tomorrow. 06/14 he tolerated his putting and other full liquids today. I will try him on low-fat diet tomorrow. I explained him that he will need to be on low-fat diet for about 6 weeks or so while taking pancreatic enzyme supplements . I would hope we could wean him off TPN tomorrow with anticipation of discharge on Monday, assuming of course that he does well when we advance his diet. 12-14 because his TPN was discontinued yesterday and is diet actually got started last night. I would think he can be discharged later today if tolerating feedings (3) Cholelithiasis with chronic cholecystitis: Qualifiers: Cholelithiasis location: gallbladder Biliary obstruction: without biliary obstruction Qualified Code(s): K80.10 - Calculus of gallbladder with chronic cholecystitis without obstruction Code(s): K80.10 - Calculus of gallbladder with chronic cholecystitis without obstruction Status: Inactive Assessment and Plan: this issue has been resolved with cholecystectomy and ERCP (4) Abdominal pain: Code(s): R10.9 - Unspecified abdominal pain Status: Deleted Assessment and Plan: today he has much less pain than he has last few days. He is doing well without the SHALE PLANER OPERATOR pump. He is no longer needing narcotics. He has been up, moving about without any significant increase in pain. I will see him in the office in [address] scan should be ordered to be done prior to that visit. Subjective Date/time seen: 06/15/21 07:24 Interval history: Date of service 06/14/2021: Patient reports feeling well at this time, taking a nap after eating breakfast. He is tolerating a full liquid diet without any worsening pain or symptoms. Still having some abdominal distention and tenderness to palpation, but improving. Still having bowel movements. Denies any fevers, ch
[2021-06-15] MEDS: LIPASE/AMYLASE/PROTEASE 12,000 UNITS CAP 2 CAP PO ×2 (07:45→12:13)
[2021-06-15] MEDS: hydrALAZINE HCL 25 MG TABLET PO ×2 (09:26→12:13)
[2021-06-15] MEDS: ENOXAPARIN 40 MG/0.4 ML SYRINGE SUB-Q (09:26)
[2021-06-15] MEDS: FAMOTIDINE 20 MG TABLET PO (09:26)
[2021-06-15] MEDS: SODIUM CHLORIDE 500 MG TABLET PO (09:26)
[2021-06-15] MEDS: SIMETHICONE 80 MG TAB.CHEW PO ×2 (09:26→12:13)
--- NOTE | 2021-06-15 10:05 | PM.PNGS ---
Progress Note: A&P Assessment and Plan (1) Pancreatitis: Onset Date: ~06/2021 Qualifiers: Chronicity: acute Pancreatitis type: other Acute pancreatitis complication: no infection or necrosis Qualified Code(s): K85.80 - Other acute pancreatitis without necrosis or infection Code(s): K85.90 - Acute pancreatitis without necrosis or infection, unspecified Status: Acute Assessment and Plan: Lipase down to 700's today. Continues to clinically improve. CT scan yesterday showed pancreatitis with pseudocyst. Continue to follow-up with GI who plans on repeating a CT scan as an outpatient. He has been advanced to a regular diet last night and is tolerating this well. Okay to discharge from a surgical standpoint. F/u with GI as recommended. (2) Leukocytosis: Onset Date: ~06/2021 Code(s): D72.829 - Elevated white blood cell count, unspecified Status: Acute Assessment and Plan: WBC continues to trend down and he remains afebrile. See plan above. (3) Status post laparoscopic cholecystectomy: Code(s): Z90.49 - Acquired absence of other specified parts of digestive tract Status: Chronic Assessment and Plan: 06/08/[address] Gasca. Continues to improve post-operatively. No surgical issues. Incisions healing well. Follow-up only as needed. Okay to discharge from a surgical standpoint. Additional Plan I have discussed the patient's case and plan of care with Dr. Gasca. Subjective Subjective Date/Time Seen: 06/15/21 10:05 Patient reports: no new complaints, flatus, bowel movement and afebrile Interval history: Patient seen and examined this morning. No new complaints. He denies any abdominal pain, nausea, or vomiting. He reports feeling well today. Review of Systems Review of Systems: All systems reviewed & are unremarkable except as noted in HPI and below Constitutional: Constitutional: Denies chills and Denies fever(s) Gastrointestinal: Gastrointestinal: Reports as per HPI and Reports no additional gastrointestinal complaints Exam Const: General: comfortable, no acute distress, alert and awake Orientation/consciousness: patient oriented x3 GI: Inspection: non-distended and incision ( trocar sites dry and healing well) GI Palp: Yes Soft to palpation, Yes Tenderness to palpation present (GI) (very mildly tender over upper abd mass, no other tenderness), No Guarding due to palpation present (GI), No Hernia present, Yes Palpable mass present (palpable mass in mid upper abd, softer to palpation today) and No Rebound tenderness present Percussion: Yes normal to percussion Auscultation: normal bowel sounds Rectal Exam: deferred Neuro: General: moves all extremities and no focal motor deficits Extrem: General: normal to inspection, no calf tenderness and no edema Psych: Mental Status: mental status grossly normal Insight: Good insight present (Psych) Judgement: Good judgement present (Psych) Objective Data Vital Signs Vital Signs: Vital Signs - 24 hr 06/14/21 14:00 06/14/21 20:00 06/14/21 22:00 Temperature 97.7 F 98.4 F Pulse Rate 69 69 80 Respiratory Rate 18 18 17 Blood Pressure 125/79 120/80 Pulse Oximetry 99 99 97 06/15/21 05:12 Temperature 97.6 F Pulse Rate 65 Respiratory Rate 16 Blood Pressure 127/65 Pulse Oximetry 95 Intake/Output Intake/Output: Intake & Output 06/12/21 06/13/21 06/14/21 06/15/21 23:59 23:59 23:59 23:59 Intake Total 3255 2765 2460 720 Output Total 2925 2700 1400 Balance 005 52 4830 720 Meds/Results Medications: Active Medications Generic Name Dose Route Start Last Admin Trade Name Freq PRN Reason Stop Dose Admin Acetaminophen 500 mg 06/14/21 16:22 Acetaminophen 500 Mg Tablet PO Q6H PRN Mild Pain (1-3) or Fever Hydrocodone Bitart/Acetaminophen 1 tab 06/14/21 16:22 Hydrocodone/Acetaminophen (*Crx) 7.5-325 Mg Tablet PO Q4H PRN Pain Rated 7-10
--- NOTE | 2021-06-15 11:11 | PCNFU ---
Nutrition Follow-Up Complete: Altered GI function as related to Pancreatitis as evidenced by TPN Goal: Meet estimated nutritional needs Patient is meeting current goal. No new goal. Pt current nutrition is Low fat. Last recorded weight is 84.9 kg, down from 90.2 kg on admit. Bowel Motility:+BM 06/12 Labs Reviewed:Lipase 763, Na 134, Hct 39.6, Hgb 13.0 Meds Noted:Lovenox, Mylicon,Pepcid. Skin:WNL Additional Notes: Nutrition follow up. Patient states to tolerating low fat diet today. Oral [id number]% of trays reported. Diet supplements of ensure surgery are providing an additional 330 kcals and 18 gms protein. Agree with diet orders. Monitoring: Will monitor every 7 days.
--- NOTE | 2021-06-15 12:40 | PM.DS ---
DS: Admitting Diagnosis Discharge Date 06/15/21 Admitting Diagnosis cholelithiasis, pancreatitis DS: Discharge Diagnosis Discharge Diagnosis (1) Pancreatitis: Onset Date: ~06/2021 Qualifiers: Acute pancreatitis complication: no infection or necrosis Chronicity: acute Pancreatitis type: other Qualified Code(s): K85.80 - Other acute pancreatitis without necrosis or infection Code(s): K85.90 - Acute pancreatitis without necrosis or infection, unspecified Status: Acute Assessment and Plan: Patient is a 50-year-old male smoker with a history of GERD, who presented emergency room from home with epigastric and right upper quadrant abdominal pain after eating a double cheeseburger and a baked potato wedges for dinner with associated nausea and diaphoresis. He reports similar symptoms over last 2 years which usually only last 30 minutes this time symptoms did not resolve and he came to the ER for further evaluation. In the emergency department, he was found to have elevated LFTs (total bilirubin 1.7, AST 1668, ALT 1462, alkaline phosphatase 127). A CT of the abdomen and pelvis showed cholelithiasis and trace amount of fluid between the liver and gallbladder with cholelithiasis noted on ultrasound without evidence of gallbladder wall thickening. He is feeling better after receiving morphine and pantoprazole in the emergency department. Patient was admitted to the hospital with a consult to GI who performed an ERCP on 06/03/21 which showed biliary stones and choledocholithiasis which was was removed. Right after his procedure his abdominal pain became significantly worse and repeat CT scan was done 06/04/21 showing Development of moderate peripancreatic, mesenteric inflammation, acute pancreatitis. Possible small amount of gastric cardial wall emphysema, could be from recent ERCP. No free intraperitoneal gas. Patient continued to have significant pain and he was started on a morphine CROP AND SOIL TECHNICIAN pump Repeat CT scan was then performed on 06/06/2021 which showed Persistent acute interstitial pancreatitis with few small acute peripancreatic fluid collections but no necrosis or abscess. Interval increase in a still small amount of likely reactive ascites. Surgery decided to perform a lap cholecystectomy on 06/08/21 in the patient tolerated the procedure well but the surgeon did find a large 14 x 9 cm mass in the hypogastric area that was consistent with possible pseudocyst. Repeat CT scan completed on 06/09/2021 showing Combination of peripancreatic and perigastric fluid and inflammatory change related to pancreatitis likely accounting for the intraoperative abnormality described. Possible hypoattenuation in the body of the pancreas with surrounding fluid, which would be consistent with necrotizing pancreatitis with sterile acute necrotic collection. Sensitivity limited by the absence of intravenous contrast. Discussed with surgery who advanced to a full liquid diet which the patient is tolerating well at this time. GI evaluated the patient and started IV imipenem for possible infected necrotizing pancreatitis, pt has completed a 7 day course and per GI does not need to go home on any further abx. GI ordered for a repeat CT abdomen 06/14/21 which shows evolution of pancreatitis. Per GI this is as expected and the plan is to follow this for at least 6 weeks outpatient before considering possible drainage. GI also states that the elevation of lipase is not surprising and may persist as long as he has a pseudocyst or peripancreatic and pancreatic inflammation. TPN was discontinued yesterday and he is now tolerating low fat diet without difficulty. Per GI patient is stable for discharge. Will go home on 3 pancreatic enzyme capsules with each meal and 1 with each snack after discharge. He will follow up in the office outpatient in 3 weeks with a repeat CT scan to be performed prior to that visit. Per surgery also cleared for discharge.
[2021-06-15] MEDS: NEOMYCIN/POLYMYXIN/BACITRACIN OINTMENT PACKET 1 PACKET (13:26)
== END 2021-06-15 14:18 | disposition home or self-care (01) | DRG 417 ==
LOC: ANHED 14:01 → ANH3MEDSUR 14:29 → ANH2MED 17:01
PROVIDERS: Internal Medicine Gastroenterology; Physician Assistant; Surgery; Admitting Provider Family Medicine; Emergency Provider Emergency Medicine; PCP Internal Medicine; Visit Provider Internal Medicine
PROC: 0FC98ZZ Extirpation of Matter from Common Bile Duct, Via Natural or Artificial Opening Endoscopic (ICD-10-PCS; CPT 43260; principal; 2021-06-03 10:45)
PROC: 0FT44ZZ Resection of Gallbladder, Percutaneous Endoscopic Approach (ICD-10-PCS; CPT 47562; principal; 2021-06-08 13:30)
DX: K80.64 Calculus of gallbladder and bile duct with chronic cholecystitis without obstruction (principal); K85.10 Biliary acute pancreatitis without necrosis or infection; E44.0 Moderate protein-calorie malnutrition; K21.9 Gastro-esophageal reflux disease without esophagitis; G47.00 Insomnia, unspecified; F17.210 Nicotine dependence, cigarettes, uncomplicated; F41.8 Other specified anxiety disorders; Z68.32 Body mass index [BMI] 32.0-32.9, adult; D72.829 Elevated white blood cell count, unspecified
CPT/HCPCS: 36415; 36569; 71046; 74150; 74176; 74177; 74329; 76705; 80048; 80053; 80074; 80307; 81001; 82150; 82248; 82948; 83690; 83735; 84100; 84466; 84478; 85025; 85027; 85610; 85730; 86850; 86900; 86901; 88304; 93005; 96361; 96365; 96366; 96372; 96374; 96375; 96376; 99285; A9270; C1713; C1751; C9113; G0378; J0131; J0330; J0360; J0690; J0743; J1100; J1170; J1650; J1741; J2250; J2270; J2405; J2704; J2710; J3010; J3480; J7030; J7120; Q9967

== ENCOUNTER 2021-07-02 10:41 | Outpatient (CLI) | payer BC, SELFPAY ==
[2021-07-02 11:24] LABS: Basophils Percent Auto 0.5 % (0.2-1.2); Eosinophils Absolute Auto 0.1 K/mm3 (0-0.3); Eosinophils Percent Auto 3.2 % (0-4.4); Hematocrit 38.2 % (42.0-52.0); Hemoglobin 12.9 g/dL (14.0-18.0); Immature Granulocyte Absolute 0.01 K/mm3 (0.00-0.031); Immature Granulocyte Percent A 0.2 % (0-0.5); Lymphocytes Absolute Auto 1.46 K/mm3 (0.9-3.2); Lymphocytes Percent Auto 35.4 % (18.3-44.2); Mean Corpuscular HGB Conc 33.8 g/dl (32-36); Mean Corpuscular Hemoglobin 29.9 pg (26-34); Mean Corpuscular Volume 88.6 fl (80-100); Mean Platelet Volume 9.9 fl (7.4-10.4); Monocytes Absolute Auto 0.3 K/mm3 (0.1-0.6); Monocytes Percent Auto 7.3 % (2.6-8.5); Neutrophils Absolute Auto 2.2 K/mm3 (1.3-6.7); Neutrophils Percent Auto 53.4 % (45.5-73.1); Platelet Count Result 207 k/mm3 (150-375); Red Blood Count 4.31 M/mm3 (4.6-6.20); Red Cell Distribution Width 13.3 % (11.5-14.5); White Blood Count 4.1 K/mm3 (4.5-10.0)
[2021-07-02 11:31] LABS: Alanine Aminotransferase 42 U/L (4-50); Albumin Level 4.4 g/dL (3.5-5.1); Alkaline Phosphatase 91 U/L (38-126); Anion Gap 8 mmol/L (8-16); Aspartate Amino Transferase 33 U/L (17-59); Bilirubin,Total 0.6 mg/dL (0.2-1.3); Blood Urea Nitrogen 9 mg/dL (9-20); Calcium 9.3 mg/dL (8.4-10.2); Carbon Dioxide 26 mmol/L (22-30); Chloride 103 mmol/L (98-107); Estimated Glomerular Filt Rate > 60; Glucose 111 mg/dL (65-110); Lipase 359 U/L (23-300); Potassium 3.9 mmol/L (3.4-5.0); Sodium 137 mmol/L (137-145)
== END 2021-07-02 10:42 | disposition home or self-care (01) ==
PROVIDERS: PCP Internal Medicine; Visit Provider Physician Assistant
DX: K85.90 Acute pancreatitis without necrosis or infection, unspecified (principal)
CPT/HCPCS: 36415; 80053; 83690; 85025

== ENCOUNTER 2021-07-13 09:15 | Outpatient (CLI) | payer BC, SELFPAY ==
--- NOTE | ~2021-07-13 | CT_ITS ---
EXAMINATION: CT abdomen w con DATE: 07/13/2021 09:55 INDICATION: Acute pancreatitis with uninfected necrosis. TECHNIQUE: Computed tomography (CT) of the abdomen was performed with 100 mL Omnipaque 350 intravenou s contrast. Automated exposure control and iterative reconstruction technique were employed. The dose -length product was 301.44 mGy-cm. COMPARISON: CT abdomen and pelvis 06/14/2021 FINDINGS: The visualized portions of the lung bases demonstrate mild atelectasis. No pleural effusion . The heart size is normal. No pericardial effusion. The liver is normal. There are changes of cholec ystectomy. There are areas of peripheral necrosis in the pancreas. There is soft tissue attenuation a nd fluid attenuation abutting the pancreas and extending into the greater omentum with interval impro vement, consistent with necrosis. The largest collection measures 6.5 x 3.8 cm on transaxial images. The splenic artery and vein are patent. The spleen, adrenal glands, and kidneys are normal. There are no dilated loops of bowel. There is diverticulosis of the colon without evidence of diverticulitis. There are no pathologically enlarged lymph nodes. There is no free intraperitoneal fluid. There is mi ld thoracolumbar spondylosis. IMPRESSION: 1. Acute necrotizing pancreatitis with areas of walled off necrosis with improvement from 06/14/2021. Reviewed, dictated and finalized at location B. 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 Acute necrotizing pancreatitis with areas of walled off necrosis with improv ement from 06/14/2021.
== END 2021-07-13 09:16 | disposition home or self-care (01) ==
PROVIDERS: Visit Provider Internal Medicine Gastroenterology
DX: K85.91 Acute pancreatitis with uninfected necrosis, unspecified (principal)
CPT/HCPCS: 74160; Q9967

== ENCOUNTER 2021-08-09 09:22 | Outpatient (CLI) | payer BC, SELFPAY ==
--- NOTE | ~2021-08-09 | US_ITS ---
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 TECHNIQUE: Multiple grayscale and Doppler images of the complete abdomen were obtained (by a technolo gist who performed the scan) and subsequently reviewed. Comparison is made to prior examination from 06/02/2021. Correlation was made with CT abdomen from 07/13/2021. FINDINGS: The abdominal aorta is normal in caliber. Visualized portion IVC is patent. The pancreatic head a nd body are normal in appearance. The pancreatic tail is not visualized. The liver has normal echogenicity and contour. There are no focal liver lesions identified. There is no evidence of intrahepatic biliary duct dilation. Portal venous flow was seen in the hepatopedal , normal direction and has normal Doppler waveform. Common bile duct measures 4 mm, which is normal. The gallbladder fossa is unremarkable. Right kidney: There is normal contour and echogenicity. It measures 10.7 x 6.0 x 6.0 centimeters. There are no focal renal lesions identified. There is no hydronephrosis. Left kidney: There is normal contour and echogenicity. It measures 12.0 x 4.8 x 5.3 centimeters. T here are no focal renal lesions identified. There is no hydronephrosis. The spleen measures 10.7 centimeters and is morphologically normal. IMPRESSION: 1. Can't identify the peripancreatic fluid collections seen on CT last month, could have resolved or are otherwise poorly visualized. 2. Unremarkable ultrasound. Reviewed, dictated and finalized at location B. VITIES THERAPIST
== END 2021-08-09 09:23 | disposition home or self-care (01) ==
PROVIDERS: Visit Provider Internal Medicine Gastroenterology
DX: K86.3 Pseudocyst of pancreas (principal)
CPT/HCPCS: 76700

== ENCOUNTER 2022-11-11 01:09 | Day surgery (SDC) | payer BC, SELFPAY ==
[2022-10-31 09:57] VITALS: BMI 32.5
--- NOTE | 2022-11-10 19:42 | PM.HPGS ---
History of Present Illness History of Present Illness Consent: Risks, benefits, and alternatives have been discussed and questions answered. Patient agrees to proceed with procedure. Chief complaint: neoplasm screening Narrative: Leodan Chapin is a 52 year old male referred for colon cancer screening Review of Systems Review of Systems: All systems reviewed & are unremarkable except as noted in HPI and below PMFSH Past Medical History Medical History Cholelithiasis with chronic cholecystitis Depression with anxiety Gastroesophageal reflux disease Insomnia Smoker Surgical History Surgical History History of arthroscopic surgery of elbow Bilateral Hx laparoscopic cholecystectomy 06/08/21 Status post arthroscopy of hip Left Family History Family History Mother Hypothyroidism Father Esophageal cancer Social History Social History Social History: Surrogate decision maker: Ellie Chapin, spouse. Code status: Full code. Years smoked: 20 Tobacco type: smokeless tobacco Alcohol intake: current Drinks per week: 1 Alcohol use details: socially Substance use: never Substance use type: does not use Living arrangements: with family Additional living arrangements comments: The patient lives in [place] with his family. Additional occupation/education comments: Works for the [email or web address]. Spiritual care concerns: No Meds Home Medications and Allergies Home Medications Medication Instructions Recorded Confirmed Type escitalopram oxalate 10 mg tablet 10 mg PO HS 06/02/21 10/31/22 History omeprazole 20 mg capsule,delayed 20 mg PO HS 06/02/21 10/31/22 History release zolpidem 10 mg tablet 10 mg PO HS 06/02/21 10/31/22 History Allergies Allergy/AdvReac Type Severity Reaction Status Date / Time No Known Allergies Allergy Verified 11/11/22 10:41 Exam Const: General: alert Orientation/consciousness: patient oriented x3 Resp: Auscultation: clear to auscultation bilaterally Cardio: Rhythm: regular rhythm GI: GI Palp: Yes Soft to palpation and No Tenderness to palpation present (GI) Neuro: General: patient oriented x3 Assessment and Plan Assessment and plan (1) Colon cancer screening: Code(s): Z12.11 - Encounter for screening for malignant neoplasm of colon Status: Acute Assessment and Plan: Colonoscopy with possible biopsy or polypectomy or cautery or injection of substances.
--- NOTE | 2022-11-11 10:01 | P.PNAN_ITS ---
Anes - Initial Pre Proc Eval Procedure: Operation Date: 11/11/22 11:30 Proposed Procedures p Screening Colonoscopy - Bill Espinoza MD Date/Time: 11/11/22 10:01 Surgeon: Bill Espinoza MD Pre Op Diagnosis: neoplasm screening Patient Data Age: 52 Gender: M Height: 1.63 m Weight: 86 kg Allergies Allergy/AdvReac Type Severity Reaction Status Date / Time No Known Allergies Allergy Verified 11/11/22 10:41 Home Medications Medication Instructions Recorded Confirmed Type escitalopram oxalate 10 mg tablet 10 mg PO HS 06/02/21 10/31/22 History omeprazole 20 mg capsule,delayed 20 mg PO HS 06/02/21 10/31/22 History release zolpidem 10 mg tablet 10 mg PO HS 06/02/21 10/31/22 History Patient hx anesthesia problems: none Family hx anesthesia problems: none Results Review: All pre-operative results and documents have been reviewed as part of the pre- operative evaluation. [facility] Past Medical History Medical History Cholelithiasis with chronic cholecystitis Depression with anxiety Gastroesophageal reflux disease Insomnia Smoker Surgical History Surgical History History of arthroscopic surgery of elbow Bilateral Hx laparoscopic cholecystectomy 06/08/21 Status post arthroscopy of hip Left Family History Family History Mother Hypothyroidism Father Esophageal cancer Social History Social History Social History: Surrogate decision maker: Ellie Chapin, spouse. Code status: Full code. Years smoked: 20 Tobacco type: smokeless tobacco Alcohol intake: current Drinks per week: 1 Alcohol use details: socially Substance use: never Substance use type: does not use Living arrangements: with family Additional living arrangements comments: The patient lives in [place] with his family. Additional occupation/education comments: Works for the [employer]. Spiritual care concerns: No Anes - Eval Final PreProcedure Day of Procedure 11/11/22 10:01 Patient weight: obese Heart: regular rate and rhythm Lungs: clear to auscultation and normal air movement Airway: Mallampati scale class II Neurological: alert and oriented Last oral intake: >/= 8 hours ASA classification: II Emergent: no Anesthetic plan: proceed Anesthesia type and monitoring: general GIVS and standard monitoring Results Review: All pre-operative results and documents have been reviewed as part of the pre- operative evaluation. Informed Consent: The patient's anesthetic plan and its attendant risks and benefits were discussed with the patient/family/POA. Questions were solicited and answers provided to the satisfaction of the patient/family/POA.
[2022-11-11 10:42] VITALS: BP 118/78; PULSE 63; RESP 17; TEMP 36.2; O2SAT 98
[2022-11-11] MEDS: LACTATED RINGERS 1,000 ML 150 ML IV CONT (10:59)
[2022-11-11 11:32] VITALS: BP 107/84; PULSE 58; RESP 16; O2SAT 98
[2022-11-11 11:42] VITALS: BP 107/71; PULSE 56; RESP 17; O2SAT 99
[2022-11-11 11:52] VITALS: BP 125/76; PULSE 56; RESP 16; O2SAT 98
== END 2022-11-11 12:00 | disposition home or self-care (01) ==
PROVIDERS: Visit Provider Internal Medicine Gastroenterology
PROC: 0DJD8ZZ Inspection of Lower Intestinal Tract, Via Natural or Artificial Opening Endoscopic (ICD-10-PCS; CPT 45378; principal; 2022-11-11 11:30)
DX: Z12.11 Encounter for screening for malignant neoplasm of colon (principal); K57.30 Diverticulosis of large intestine without perforation or abscess without bleeding; K62.1 Rectal polyp; K21.9 Gastro-esophageal reflux disease without esophagitis; F41.8 Other specified anxiety disorders; F17.220 Nicotine dependence, chewing tobacco, uncomplicated; E66.9 Obesity, unspecified; Z68.31 Body mass index [BMI] 31.0-31.9, adult
CPT/HCPCS: 45385; 88305; J2704; J7120